=== PATIENT | female | born 1945 | race Caucasian/White ===

== ENCOUNTER 2018-06-11 09:59 | Observation (INO) ==
[2018-06-11 10:52] LABS: Basophils # (auto) 0.04 K/uL (0-0.2); Basophils % (auto) 0.6 %; Eosinophils # (auto) 0.38 K/uL (0-0.5); Eosinophils % (auto) 5.4 %; Hematocrit (blood only) 40.1 % (37-47); Hemoglobin 13.3 g/dL (12.0-16.0); Immature Granulocytes # (auto) 0.01 K/uL (0.00-0.02); Immature Granulocytes % (auto) 0.1 %; Lymphocytes # (auto) 1.63 K/uL (1.2-3.4); Mean Corpuscular Hgb Conc 33.2 g/dL (32-36); Mean Corpuscular Volume 92.2 fL (80-100); Mean Platelet Volume 11.1 fL (7.4-10.4); Monocytes # (auto) 0.56 K/uL (0.11-0.59); Monocytes % (auto) 7.9 %; Neutrophils # (auto) 4.47 K/uL (1.4-6.5); Platelet Count 185 K/uL (130-400); RDW Coefficient of Variation 12.9 % (11.5-14.5); RDW Standard Deviation 43.5 fL (36.4-46.3); Red Blood Count 4.35 M/uL (4.2-5.4); White Blood Count 7.09 K/uL (4.8-10.8)
--- NOTE | 2018-06-11 11:03 | XRay Report ---
XR chest 1V portable CLINICAL HISTORY: Atypical chest pain. Hypertension. COMPARISON STUDY: 05/23/2018 FINDINGS: The heart is enlarged. There is a left subclavian dual-chamber central venous pacemaker. Th ere is no failure. There is no focal pulmonary consolidation. There are no pleural effusions. There i s a right midlung zone granuloma.[ IMPRESSION: M. No acute findings. Electronically signed by: Kishan Eastman M.D. 06/11/2018 11:02 AM
[2018-06-11 11:07] LABS: Albumin Level 3.7 gm/dl (3.4-5.0); BUN Creatinine Ratio 22.8 (10-20); Calcium 9.1 mg/dl (8.5-10.1); Creatinine Clr Calc Pharmacy 65.5 ml/min; Est GFR (African American) 86.8; Est GFR (Non-African American) 74.9; Potassium 3.8 mmol/L (3.5-5.1)
[2018-06-11 11:10] LABS: Albumin Globulin Ratio 1.1 (0.9-2); Bilirubin,Total 0.5 mg/dl (0.1-1); Globulin 3.4 gm/dl (2.5-4.0); Total Protein 7.1 gm/dl (6.4-8.2)
[2018-06-11] MEDS ORDERED: NITROGLYCERIN 2% OINTMENT 30GM TUBE EXT ONE (12:00)
--- NOTE | 2018-06-11 12:34 | History & Physical Report ---
Date of Service June 11, 2018 Assessment & Plan (1) Chest pain, exertional: 73 y/o F Hx HTN, 2' heart block and symptomatic bradycardia leading to pacer placement 05/23/18. For the past week she has had episodes of central CP accompanied by SOB and lightheadedness. She denies nausea, vomiting or diaphoresis. The episode appear to be increasing in frequency. She reports similar episodes prior to placement of her pacemaker which were attributed to symptomatic bradycardia. Initial labs are unremarkable. An EKG, being paced, is nondiagnostic. It is noted that her BP was poorly controlled on arrival to the ER with a systolic pressure in the 170s. 1) CP - may be consistent with unstable angina. A stress test is pending for AM. She will be monitored overnught and serial enzymes are requested. 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 She is placed on ASA, a statin and NTG in addition to her B sudarshan. 2) HTN - uncontrolled - placed on Carvedilol and Lisinopril per home dose. NTG paste and PRN Hydralazine added, 3) Anxiety - continue Sertraline 4) Pacer - functioning as expected Full code - Lovenox prophylaxis Total time for this admit including review of labs, meds, imaging, records - discussion with pt and ER attending - 35 min History of Present Illness Chief Complaint: CHest pain Primary Care Provider: Feliciano Mckeon 73 y/o F Hx HTN, 2' heart block and symptomatic bradycardia leading to pacer placement 05/23/18. For the past week she has had episodes of central CP accompanied by SOB and lightheadedness. She denies nausea, vomiting or diaphoresis. The episode appear to be increasing in frequency. She reports similar episodes prior to placement of her pacemaker which were attributed to symptomatic bradycardia. Initial labs are unremarkable. An EKG, being paced, is nondiagnostic. It is noted that her BP was poorly controlled on arrival to the ER with a systolic pressure in the 170s. PMH: 1) HTN 2) Anxiety 3) 2nd degree heart block, symptomatic bradycardia 4) AV Pacemaker Surgical: 1) Pacemaker 05/23/18 2) L TKA 2016 Social: Does not drink or smoke Family: Both parents owing to MIs in their 50s Allergies Allergy/AdvReac Type Severity Reaction Status Date / Time clindamycin AdvReac Unknown nausea and Verified 06/11/18 10:24 vomiting Home Medications Home Medications Medication Instructions Recorded Confirmed Type carvedilol [Coreg] 25 mg PO DAILY 06/11/18 06/11/18 History lisinopril 10 mg PO BID 06/11/18 06/11/18 History sertraline [Zoloft] 25 - 50 mg PO DAILY 06/11/18 06/11/18 History Past Med/Surg History Medical History Hypertension (Chronic) Complete heart block Bradycardia Irregular heart rate No history of asthma Complete heart block Paroxysmal atrial tachycardia Surgical History Status post hernia repair Status post right knee replacement Social History marital status: Current Living Situation: Spouse Feels Safe at Home: Yes Smoking Status: Never smoker Hx Alcohol Use: No Hx Substance Use: Yes substance use type: does not use Beliefs That Will Affect Care: Yarsanism Preferred Language: Nigerian Review of Systems General: Denies fevers, night sweats, weight loss, weight gain ENT: Denies throat pain, nasal congestion Eyes: Denies acute visual impairment, eye pain Cardiovascular: CP as above Respiratory: Denies SOB, productive cough, wheezing - SOB occurs with CP GI: Denies nausea, vomiting, diarrhea, constipation, GI bleeding : Denies dysuria, hesitancy, frequency, hematuria Neuro: Denies headache, syncope, unilateral weakness, acute loss of balance, memory loss Endocrine: Denies polydypsia, polyuria Heme: Denies unexplained bruising Skin: Denies acute rash or ulcers Physical Exam 2 Vital Signs (Past 24 Hours): Last Vital Signs Temp 36.8 C 06/11/18 10:04 Pulse 70 06/11/18 12:18 Resp 18 06/11/18 12:18 BP 173/83 H 06/11/18 12:18 Pulse Ox 95 06/11/18 12:18 Physical Exam: General: AAO x 3, no distress ENT: No erythema or exudates, no thrush Eyes: JUSTA, EOMI Head and neck: Normocephalic, atraumatic, No JVD, neck is supple. Chest/heart: Nontender, S1,2, RRR, no murmurs, no gallops Lungs: CTAB, no wheezing or crackles Abdomen: Nontender, nondistended, BS+ Neuro: AAO x 3, speech is clear, no unilateral weakness or loss of sensation, coordination intact Musculoskeletal: No joint inflammation, muscle tenderness, FROM Skin: No acute rashes or ulcers Extremities: No clubbing, cyanosis, edema Results & Data Diagnostic Findings CXR: no acute findings EKG: AV pacing
[2018-06-11] MEDS ORDERED: ONDANSETRON INJ 2 MG/ML 2 ML VIAL IV PRN (14:45)
[2018-06-11] MEDS ORDERED: MoRPHine SULFATE 2 MG/ML CARP IV PRN (14:45)
[2018-06-11] MEDS ORDERED: ALUMINUM/MAGNESIUM SUSP 30 ML UDC PO PRN (14:45)
[2018-06-11] MEDS ORDERED: NITROGLYCERIN SL 0.4 MG/TAB TAB SL PRN (14:45)
[2018-06-11] MEDS ORDERED: ACETAMINOPHEN 325 MG TAB PO PRN (14:45)
[2018-06-11] MEDS ORDERED: MAGNESIUM HYDROXIDE SUSP 30 ML UDC PO PRN (14:45)
[2018-06-11] MEDS ORDERED: POLYETHYLENE (MIRALAX) 17 GM PACK PO PRN (14:45)
[2018-06-11] MEDS ORDERED: HydrALAZINE HCL 20 MG/ML VIAL IV PRN (14:45)
[2018-06-11] MEDS ORDERED: ENOXAPARIN INJ 40 MG/0.4 ML SYR SQ SCH (15:00)
--- NOTE | 2018-06-11 15:54 | Cardiology Consultation ---
Date of Consultation June 11, 2018 Assessment & Plan (1) Chest pain, exertional: Lizeth Ritchie is a 73-year-old female with a past medical history of heart block status post pacer placement and hypertension who presents for evaluation of 3 days of shortness of breath, chest pressure, and uncontrolled hypertension. She has exertional symptoms including chest pressure and shortness of breath which improved but did not completely resolve at rest. Troponin x2 are negative , EKG is nondiagnostic due to pacer but shows a paced rhythm at 61 bpm with prolonged AV conduction. Her pressures were in the 170s systolically on admit, peaked at 200s systolically and 60s-90s diastolically following admit, have decreased to 152/82 with Nitropaste. Differential diagnosis of her chest pain & shortness of breath include uncontrolled hypertension, paced rhythm with insufficient rate to meet increased demand with exertion, angina, and ACS. Low suspicion for ACS. Hypertensive control as follows: Lisinopril 10 mg twice daily, carvedilol 25 mg daily, torsemide 20 mg p.o. daily. Do not need to hold for BB for bradycardia given paced rhythm. Single dose of carvedilol 12.5 mg ordered. Hydralazine 2.5 mg IV every 8 as needed for systolic greater than 165 Discontinue Nitropaste Interrogate pacer Nuclear stress test - Do not recommend cardiac cath at this time Troponin x2 negative, final troponin pending Will continue to follow (2) Poorly-controlled hypertension: Supervising Physician Co-Signing Physician Notes History of present illness: 73-year-old woman who underwent pacemaker placement for intermittent complete heart block approximately 3 weeks ago, admitted today (06/11/2018) with recurrent exertional chest pressure and dyspnea beginning after she increased her activity post pacemaker. She also has a history of dyslipidemia, hypertension and paroxysmal atrial tachycardia, but no known coronary disease. Initial cardiac enzymes are negative x2, ECG shows a paced rhythm. Patient was reasonably comfortable at the time of our evaluation, noting no chest pain, dyspnea, subjective palpitations, or lightheadedness. She did complain of a mild headache, but had no other somatic complaints. Past history/review of systems as per Dr. Blackmon. No distress. Vitals: Afebrile. BP initially as high as 202/77 mm Hg, dropping to 152/82 mm Hg. Pulse 60 and regular (paced). Normal respiratory rate. Skin: No unusual lesions or ecchymosis. HEENT: Unremarkable. Neck: Jugular venous pulse at the clavicle at 90, no carotid bruits. Lungs: Clear and equal breath sounds bilaterally. No wheezing or crackles. Cardiac: Regular rhythm with normal S1 and S2. No murmur or gallop. Abdomen: Benign. Extremities: Nontender with 1+ edema. Intact peripheral pulses. Good capillary refill. Neurologic: Normal affect, nonfocal. Data: ECG showed paced rhythm. Chest x-ray unremarkable. Normal CBC. Troponin negative x2. Creatinine 0.78. Echocardiogram 2017 showed normal LV size and systolic function with no wall motion abnormalities, mild mitral regurgitation noted. Impression: 1. Exertional chest discomfort - evaluation underway. She may have angina secondary to supply/demand mismatch from uncontrolled hypertension. The exertional and episodic nature of her symptoms weighs against pulmonary embolism , but she did have a recent operative procedure (pacemaker placement). Agree with adjusting vaso-active regimen to control blood pressure, if no evidence of acute coronary syndrome will then proceed with stress testing to evaluate chronotropic response to activity (since inadequate heart rate response could be a source of dyspnea) and to exclude myocardial ischemia. 2. Status post pacemaker - [employer] Yesenia XT DR SIOBHAN Reddy dual-chamber pacemaker placed 05/22/2018. Will review overnight monitor results tomorrow and assess chronotropic response during stress testing. Doubt pacemaker malfunction at this point, but will perform an interrogation if any suggestion of inappropriate pacemaker function. 3. Hypertension - marked systolic hypertension was noted during her admission for pacemaker placement several weeks ago as well. She was to be started on torsemide 20 mg as an outpatient, will initiate this and titrate her carvedilol and lisinopril. Will discontinue nitropaste given her headache and it is relatively small contribution to BP control. Thank you for the opportunity to participate in the care of this patient. History of Present Illness Reason for Consultation: Evaluation of chest pain, shortness of breath in a patient with recent pacer placement Attending Physician: Isak Kumar MD History of Present Illness Lizeth Mitchell is a 73-year-old female with a past medical history of hypertension, heart block status post atrial pacer placement 05/23/2018, and dizziness who presents with 3 days of increased shortness of breath, headache, and increased blood pressure. She had a pacer placed in the beginning of May after heart block was noted by anesthesia during evaluation for a bunion removal surgery. Until then she notes she is also been having dizzy spells and intermittent shortness of breath for 3 years, with no arrhythmia picked up on loop recorder. Following pacer placement her shortness of breath and dizzy spells resolved and she was in good health until 3 days ago For the last 3 days she is noticed chest pressure in her central chest which occasionally radiates to her left arm. 4-5 out of 10 intensity at worst, 2-3 out of 10 without arm pain presently. She has associated shortness of breath which increases with exertion and becomes limiting to her until she rests, gradually improves with rest but has not resolved in the last few days. She notes she has been exerting herself more in the last 3 days walking around, cooking, preparing for the holidays. She lives with her who has not noticed any confusion or mental changes. She has also had mild headache and pain behind her left eye which occurs when her blood pressure is high and resolves when her blood pressure normalizes. Her blood pressures in the last 3 days have periodically been in the 180s systolically and 90s diastolically. Her hypertension has been managed with carvedilol 25 mg twice daily and lisinopril 10 mg (one half 20 mg tablet) twice daily. She was prescribed torsemide 20 mg 4 weeks ago to replace her Lasix for better control, she reports she thought she was supposed to start that when running out of carvedilol and has not taken any torsemide until a single dose today. She denies syncope, presyncope, but endorses mild dizziness worse with exertion. No vertigo. Denies swelling in her hands, endorses several weeks of bilateral lower leg edema. No history of diabetes. No history of tobacco or alcohol use. Denies recreational drug use. Endorses a family history of UT in her mother and father; history of diabetes mellitus in her sister, brother, and uncle; history of stroke in her paternal grandmother. Allergies Allergy/AdvReac Type Severity Reaction Status Date / Time clindamycin AdvReac Unknown nausea and Verified 06/11/18 10:24 vomiting Home Medications Home Medications Medication Instructions Recorded Confirmed Type carvedilol [Coreg] 25 mg PO DAILY 06/11/18 06/11/18 History lisinopril 10 mg PO BID 06/11/18 06/11/18 History sertraline [Zoloft] 25 - 50 mg PO DAILY 06/11/18 06/11/18 History Patient History Medical History Hypertension (Chronic) Complete heart block Bradycardia Irregular heart rate No history of asthma Complete heart block Paroxysmal atrial tachycardia Surgical History Status post hernia repair Status post right knee replacement Social History marital status: Current Living Situation: Spouse Other Information That Helps Us Care for You: No Feels Safe at Home: Yes Safety Concerns: Feels Safe At This Time Smoking Status: Never smoker Hx Alcohol Use: No Hx Substance Use: No Beliefs That Will Affect Care: None Communication Ability: Effective 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 NAD. Cooperative. HEENT: Atraumatic, normocephalic. Extraocular movements intact. Pupils equal and responsive to light and accommodation. Pulm: CTAB A&P. -wheezes, -rales, -rhonchi. Symmetrical chest rise. No increase work of breathing. No respiratory distress. Cardiac: RRR, -mrg. Radial pulses intact and symmetrical.Posterior tibial pulses intact and symmetrical. No JVD. No increased JVD with hepatojugular reflux. Abdominal: Nontender, nondistended, soft. BS present. Extremities: 2-3+ pitting edema through the calf bilaterally. No unilateral leg swelling, no lower extremity warmth or tenderness to palpation. Calf circumference equal bilaterally. Homans sign negative bilaterally Results & Data Laboratory Results Abnormal lab results 06/11/18 06/11/18 Range/Units 10:25 10:25 MPV 11.1 H (7.4-10.4) fL Chloride 108 H (98-107) mmol/L BUN/Creatinine Ratio 22.8 H (10-20) 06/11/18 06/11/18 06/11/18 Range/Units 15:16 11:07 10:25 WBC (4.8-10.8) K/uL RBC (4.2-5.4) M/uL Hgb (12.0-16.0) g/dL Hct (37-47) % MCV (80-100) fL MCH (25-34) pg MCHC (32-36) g/dL RDW Std Deviation (36.4-46.3) fL RDW Coeff of Mohinder (11.5-14.5) % Plt Count (130-400) K/uL MPV (7.4-10.4) fL Immature Gran % (Auto) % Neut % (Auto) % Lymph % (Auto) % [place] % (Auto) % Eos % (Auto) % Baso % (Auto) % Immature Gran # (Auto) (0.00-0.02) K/uL Neut # (Auto) (1.4-6.5) K/uL Lymph # (Auto) (1.2-3.4) K/uL [place] # (Auto) (0.11-0.59) K/uL Eos # (Auto) (0-0.5) K/uL Baso # (Auto) (0-0.2) K/uL Sodium 142 (136-145) mmol/L Potassium 3.8 (3.5-5.1) mmol/L Chloride 108 H (98-107) mmol/L Carbon Dioxide 29 (21-32) mmol/L Anion Gap 5.0 (3-11) BUN 18 (7-18) mg/dl Creatinine 0.78 (0.6-1.2) mg/dl Est Cr Clr Drug Dosing 65.5 ml/min Est GFR ( Amer) 86.8 Est GFR (Non-Af Amer) 74.9 BUN/Creatinine Ratio 22.8 H (10-20) Glucose 88 (70-99) mg/dl Calcium 9.1 (8.5-10.1) mg/dl Total Bilirubin 0.5 (0.1-1) mg/dl AST 17 (15-37) U/L ALT 22 (12-78) U/L Alkaline Phosphatase 68 (45-117) U/L POC Troponin I < 0.03 (0-0.045) ng/ml Troponin I Pending Total Protein 7.1 (6.4-8.2) gm/dl Albumin 3.7 (3.4-5.0) gm/dl Globulin 3.4 (2.5-4.0) gm/dl Albumin/Globulin Ratio 1.1 (0.9-2) Lipase 235 (73-393) U/L // Range/Units 10:25 WBC 7.09 (4.8-10.8) K/uL RBC 4.35 (4.2-5.4) M/uL Hgb 13.3 (12.0-16.0) g/dL Hct 40.1 (37-47) % MCV 92.2 (80-100) fL MCH 30.6 (25-34) pg MCHC 33.2 (32-36) g/dL RDW Std Deviation 43.5 (36.4-46.3) fL RDW Coeff of Mohinder 12.9 (11.5-14.5) % Plt Count 185 (130-400) K/uL MPV 11.1 H (7.4-10.4) fL Immature Gran % (Auto) 0.1 % Neut % (Auto) 63.0 % Lymph % (Auto) 23.0 % [place] % (Auto) 7.9 % Eos % (Auto) 5.4 % Baso % (Auto) 0.6 % Immature Gran # (Auto) 0.01 (0.00-0.02) K/uL Neut # (Auto) 4.47 (1.4-6.5) K/uL Lymph # (Auto) 1.63 (1.2-3.4) K/uL [place] # (Auto) 0.56 (0.11-0.59) K/uL Eos # (Auto) 0.38 (0-0.5) K/uL Baso # (Auto) 0.04 (0-0.2) K/uL Sodium (136-145) mmol/L Potassium (3.5-5.1) mmol/L Chloride (98-107) mmol/L Carbon Dioxide (21-32) mmol/L Anion Gap (3-11) BUN (7-18) mg/dl Creatinine (0.6-1.2) mg/dl Est Cr Clr Drug Dosing ml/min Est GFR ( Amer) Est GFR (Non-Af Amer) BUN/Creatinine Ratio (10-20) Glucose (70-99) mg/dl Calcium (8.5-10.1) mg/dl Total Bilirubin (0.1-1) mg/dl AST (15-37) U/L ALT (12-78) U/L Alkaline Phosphatase (45-117) U/L POC Troponin I (0-0.045) ng/ml Troponin I Total Protein (6.4-8.2) gm/dl Albumin (3.4-5.0) gm/dl Globulin (2.5-4.0) gm/dl Albumin/Globulin Ratio (0.9-2) Lipase (73-393) U/L Medications Administered Current Inpatient Medications Acetaminophen (Tylenol) 650 mg PO Q4H PRN PRN Reason: Pain or Fever Stop: 07/11/18 14:44 Al Hydrox/Mg Hydrox/Simethicone (Maalox) 15 ml PO Q4H PRN PRN Reason: Dyspepsia Stop: 07/11/18 14:44 Aspirin (Ecotrin) 81 mg PO QAM [facility] Stop: 07/12/18 08:59 Carvedilol (Coreg) 25 mg PO DAILY [facility] Stop: 07/12/18 08:59 Enoxaparin Sodium (Lovenox) 40 mg SQ Q24H [facility] Stop: 07/11/18 14:59 Last Admin: 06/11/18 15:40 Dose: 40 mg Hydralazine HCl (Hydralazine Hcl) 2.5 mg IV Q8H PRN PRN Reason: SBP > 165 Stop: 07/11/18 14:44 Potassium Chloride/Dextrose/Sod Cl (D5nss + 20meq Kcl) 20 meq in 1,000 mls @ 80 mls/hr IV .[id number] [facility] Stop: 06/12/18 08:29 Lisinopril (Zestril) 10 mg PO BID [facility] Stop: 07/11/18 20:59 Magnesium Hydroxide (Milk Of Magnesia) 30 ml PO Q12H PRN PRN Reason: Constipation Stop: 07/11/18 14:44 Morphine Sulfate (Morphine Sulfate) 2 mg IV Q30M PRN PRN Reason: Chest Pain Stop: 06/25/18 14:44 Nitroglycerin (Nitro-Bid 2%) 1 inch EXT Q6 BAILEE Stop: 07/11/18 17:59 Nitroglycerin (Nitrostat) 0.4 mg SL UD PRN PRN Reason: Chest Pain Stop: 07/11/18 14:44 Ondansetron HCl (Zofran) 4 mg IV Q6H PRN PRN Reason: Nausea Stop: 07/11/18 14:44 Polyethylene Glycol (Miralax Powder Packet) 17 gm PO DAILY PRN PRN Reason: Constipation Stop: 07/11/18 14:44 Sertraline HCl (Zoloft) 25 mg PO DAILY BAILEE Stop: 07/12/18 08:59
[2018-06-11] MEDS ORDERED: CARVEDILOL 12.5 MG TAB PO ONE (16:08)
--- NOTE | 2018-06-11 17:15 | Emergency Department Note ---
Entered by Abram Henning acting as a scribe for Tulio Sanabria MD History of Present Illness General Chief complaint: Hypertension Stated complaint: SHORT OF BREATH, HIGH BLOOD PRESSURE Source: patient History of Present Illness Onset (ago): week(s) 1 Location: chest (hypertension) Pain Consistency: + constant Maximum Pain Intensity: 3 Relieved By: + none Associated symptoms: + denies other symptoms (palpitations), + chest pain ( tightness), + shortness of breath and + other (intermittent leg swelling); no cough and no fever/chills The patient is a 73 year old F who presents to the Emergency Room with complaints of constant hypertension starting 1 week ago. She states that she currently has shortness of breath, tight chest pain, and intermittent leg swelling. She denies having a fever, cough, and palpitations since her pacemaker surgery. She notes that she had a pacemaker placement surgery earlier this month but has not been taking her blood pressure medication as prescribed to her by her educational manager because she is already taking two other medications. She was prescribed torsemide but just picked it up recently and did not take it. She has been taking her other blood pressure medications. She does state that she has had chest tightness with shortness of breath for some time. It was worse when she had bradycardia and was admitted earlier in the month. It seems to have gotten better but she has not been doing very much until about a week ago when she started cleaning the house and baking cookies. This seemed to worsen her chest tightness and shortness of breath. She is currently not having any chest tightness. She denies having a history of asthma or a recent cardiac cauterization. Home Medications Home Medications Medication Instructions Recorded Confirmed Type carvedilol [Coreg] 25 mg PO DAILY 06/11/18 06/11/18 History lisinopril 10 mg PO BID 06/11/18 06/11/18 History sertraline [Zoloft] 25 - 50 mg PO DAILY 06/11/18 06/11/18 History Allergies Allergy/AdvReac Type Severity Reaction Status Date / Time clindamycin AdvReac Unknown nausea and Verified 06/11/18 10:24 vomiting Past Med/Surg History Medical History Hypertension (Chronic) Complete heart block Bradycardia Irregular heart rate No history of asthma Complete heart block Paroxysmal atrial tachycardia Surgical History Status post hernia repair Status post right knee replacement Social History marital status: Current Living Situation: Spouse Other Information That Helps Us Care for You: No Feels Safe at Home: Yes Safety Concerns: Feels Safe At This Time Smoking Status: Never smoker Hx Alcohol Use: No Hx Substance Use: No Beliefs That Will Affect Care: None Communication Ability: Effective Accreditation Specialist Required: No Review of Systems See HPI for pertinent positives & negatives. and A total of 10 systems reviewed and were otherwise negative Physical Exam Vital Signs Vital Signs - 24 hr 06/11/18 10:04 06/11/18 10:32 06/11/18 11:02 Temperature 36.8 C Temperature Source Oral Sepsis Recent Fever Within 48 Hours No Sepsis New/Unexplained Change in Mental Status No Sepsis Action Taken by Nursing No Action Required Pulse Rate 64 60 Pulse Rate [Apical] Pulse Rhythm Regular Pulse Rhythm [Apical] Pulse Strength [Apical] Respiratory Rate 20 16 Respiratory Effort / Characteristics Respiratory Depth Normal Blood Pressure 195/95 H Blood Pressure [Left Arm] 199/66 H Blood Pressure [Right Arm] Blood Pressure Mean 128 Blood Pressure Mean [Left Arm] 110 Blood Pressure Mean [Right Arm] Blood Pressure Position [Left Arm] Lying Blood Pressure Position [Right Arm] Pulse Oximetry 98 96 Oxygen Delivery Method Room Air Room Air 06/11/18 11:26 06/11/18 11:54 06/11/18 12:18 Temperature Temperature Source Sepsis Recent Fever Within 48 Hours Sepsis New/Unexplained Change in Mental Status Sepsis Action Taken by Nursing Pulse Rate Pulse Rate [Apical] 66 62 70 Pulse Rhythm Pulse Rhythm [Apical] Regular Pulse Strength [Apical] Normal Respiratory Rate 16 18 18 Respiratory Effort / Characteristics Non-Labored Respiratory Depth Normal Blood Pressure Blood Pressure [Left Arm] 202/77 H Blood Pressure [Right Arm] 210/81 H 210/85 H 173/83 H Blood Pressure Mean Blood Pressure Mean [Left Arm] 118 Blood Pressure Mean [Right Arm] 124 126 113 Blood Pressure Position [Left Arm] Blood Pressure Position [Right Arm] Lying Pulse Oximetry 98 98 95 Oxygen Delivery Method Room Air Room Air Room Air 06/11/18 13:04 06/11/18 13:18 06/11/18 13:44 Temperature Temperature Source Sepsis Recent Fever Within 48 Hours Sepsis New/Unexplained Change in Mental Status Sepsis Action Taken by Nursing Pulse Rate Pulse Rate [Apical] 77 70 Pulse Rhythm Pulse Rhythm [Apical] Pulse Strength [Apical] Respiratory Rate 18 18 Respiratory Effort / Characteristics Short of Breath Respiratory Depth Normal Normal Normal Blood Pressure Blood Pressure [Left Arm] Blood Pressure [Right Arm] 170/86 H 162/85 H Blood Pressure Mean Blood Pressure Mean [Left Arm] Blood Pressure Mean [Right Arm] 114 110 Blood Pressure Position [Left Arm] Blood Pressure Position [Right Arm] Pulse Oximetry 99 96 Oxygen Delivery Method Room Air Room Air 06/11/18 14:32 Temperature 36.6 C Temperature Source Oral Sepsis Recent Fever Within 48 Hours Sepsis New/Unexplained Change in Mental Status Sepsis Action Taken by Nursing Pulse Rate Pulse Rate [Apical] 68 Pulse Rhythm Pulse Rhythm [Apical] Pulse Strength [Apical] Respiratory Rate 18 Respiratory Effort / Characteristics Respiratory Depth Blood Pressure Blood Pressure [Left Arm] 152/82 H Blood Pressure [Right Arm] Blood Pressure Mean Blood Pressure Mean [Left Arm] 105 Blood Pressure Mean [Right Arm] Blood Pressure Position [Left Arm] Lying Blood Pressure Position [Right Arm] Pulse Oximetry 98 Oxygen Delivery Method Room Air Constitutional: Vital signs reviewed. Eyes: Pupils are equal round reactive to light. Conjunctiva are noninjected. ENT: Pharynx is clear without erythema or exudate. Mucous membranes are moist. Neck supple without meningeal signs. Respiratory: Clear to auscultation bilaterally. Breath sounds are equal bilaterally. Cardiovascular: Regular rate and rhythm. No rubs or gallops. GI: Soft, nondistended and nontender. Bowel sounds are present. Musculoskeletal: No peripheral edema. No lower extremity tenderness. Pacemaker in left upper chest wall, no tenderness, no erythema, no swelling. Integumentary: No cyanosis. Neurological: The patient is awake and alert. No focal deficits. Psychiatric: Normal affect. Course 1036: Past medical records reviewed. The patient was evaluated in room A10, and a complete history and physical examination were performed. 1157: I reviewed the patient's case with Dr. Arzola and he states that the patient should be admitted. He states he will do a stress tomorrow after blood pressure is stabilized. 1210: I talked to the patient about Dr. Hall recommendation and she agreed to hospitalization. The patient states that she does not currently have any symptoms and her blood pressure has improved. 1255: I reviewed the patient's case with Dr. Isak Kumar, [facility] Hospitalist. He will evaluate the patient for further management. Consultations Consultation #1: I reviewed the patient's case with Dr. Arzola and he states that the patient should be admitted. He states he will do a stress tomorrow after blood pressure is stabilized. Time: 11:57 Consultation #2: I reviewed the patient's case with Dr. Isak Kumar, [facility] Hospitalist. He will evaluate the patient for further management. Time: 12:55 Administered Medications Acetaminophen (Tylenol) 650 mg PO Q4H PRN PRN Reason: Pain or Fever Stop: 07/11/18 14:44 Last Admin: 06/11/18 17:05 Dose: 650 mg Enoxaparin Sodium (Lovenox) 40 mg SQ Q24H BAILEE Stop: 07/11/18 14:59 Last Admin: 06/11/18 15:40 Dose: 40 mg Discontinued Medications Carvedilol (Coreg) 12.5 mg PO NOW ONE Stop: 06/11/18 16:09 Last Admin: 06/11/18 17:06 Dose: 12.5 mg Nitroglycerin (Nitro-Bid 2%) 1 inch EXT NOW ONE Stop: 06/11/18 12:01 Last Admin: 06/11/18 12:09 Dose: 1 inch Medical Decision Making Differential Diagnosis Differential Diagnosis includes: medication noncompliance, anxiety, acute coronary syndrome, heart failure, pleural effusion Medical Records Attestation: I reviewed the patient's medical records. Home Medications Current Medication List: was personally reviewed by me Laboratory Data Attestation: I reviewed the patient's lab results. Result diagrams: 06/11/18 10:25 06/11/18 10:25 Lab Results 06/11/18 06/11/18 06/11/18 Range/Units 10:25 10:25 11:07 WBC 7.09 (4.8-10.8) K/uL RBC 4.35 (4.2-5.4) M/uL Hgb 13.3 (12.0-16.0) g/dL Hct 40.1 (37-47) % MCV 92.2 (80-100) fL MCH 30.6 (25-34) pg MCHC 33.2 (32-36) g/dL RDW Std Deviation 43.5 (36.4-46.3) fL RDW Coeff of Mohinder 12.9 (11.5-14.5) % Plt Count 185 (130-400) K/uL MPV 11.1 H (7.4-10.4) fL Immature Gran % (Auto) 0.1 % Neut % (Auto) 63.0 % Lymph % (Auto) 23.0 % Evans % (Auto) 7.9 % Eos % (Auto) 5.4 % Baso % (Auto) 0.6 % Immature Gran # (Auto) 0.01 (0.00-0.02) K/uL Neut # (Auto) 4.47 (1.4-6.5) K/uL Lymph # (Auto) 1.63 (1.2-3.4) K/uL Evans # (Auto) 0.56 (0.11-0.59) K/uL Eos # (Auto) 0.38 (0-0.5) K/uL Baso # (Auto) 0.04 (0-0.2) K/uL Sodium 142 (136-145) mmol/L Potassium 3.8 (3.5-5.1) mmol/L Chloride 108 H (98-107) mmol/L Carbon Dioxide 29 (21-32) mmol/L Anion Gap 5.0 (3-11) BUN 18 (7-18) mg/dl Creatinine 0.78 (0.6-1.2) mg/dl Est Cr Clr Drug Dosing 65.5 ml/min Est GFR ( Amer) 86.8 Est GFR (Non-Af Amer) 74.9 BUN/Creatinine Ratio 22.8 H (10-20) Glucose 88 (70-99) mg/dl Calcium 9.1 (8.5-10.1) mg/dl Total Bilirubin 0.5 (0.1-1) mg/dl AST 17 (15-37) U/L ALT 22 (12-78) U/L Alkaline Phosphatase 68 (45-117) U/L POC Troponin I < 0.03 (0-0.045) ng/ml Troponin I (0-0.045) ng/ml Total Protein 7.1 (6.4-8.2) gm/dl Albumin 3.7 (3.4-5.0) gm/dl Globulin 3.4 (2.5-4.0) gm/dl Albumin/Globulin Ratio 1.1 (0.9-2) Lipase 235 (73-393) U/L 06/11/18 Range/Units 15:16 WBC (4.8-10.8) K/uL RBC (4.2-5.4) M/uL Hgb (12.0-16.0) g/dL Hct (37-47) % MCV (80-100) fL MCH (25-34) pg MCHC (32-36) g/dL RDW Std Deviation (36.4-46.3) fL RDW Coeff of Mohinder (11.5-14.5) % Plt Count (130-400) K/uL MPV (7.4-10.4) fL Immature Gran % (Auto) % Neut % (Auto) % Lymph % (Auto) % Evans % (Auto) % Eos % (Auto) % Baso % (Auto) % Immature Gran # (Auto) (0.00-0.02) K/uL Neut # (Auto) (1.4-6.5) K/uL Lymph # (Auto) (1.2-3.4) K/uL Evans # (Auto) (0.11-0.59) K/uL Eos # (Auto) (0-0.5) K/uL Baso # (Auto) (0-0.2) K/uL Sodium (136-145) mmol/L Potassium (3.5-5.1) mmol/L Chloride (98-107) mmol/L Carbon Dioxide (21-32) mmol/L Anion Gap (3-11) BUN (7-18) mg/dl Creatinine (0.6-1.2) mg/dl Est Cr Clr Drug Dosing ml/min Est GFR ( Amer) Est GFR (Non-Af Amer) BUN/Creatinine Ratio (10-20) Glucose (70-99) mg/dl Calcium (8.5-10.1) mg/dl Total Bilirubin (0.1-1) mg/dl AST (15-37) U/L ALT (12-78) U/L Alkaline Phosphatase (45-117) U/L POC Troponin I (0-0.045) ng/ml Troponin I < 0.015 (0-0.045) ng/ml Total Protein (6.4-8.2) gm/dl Albumin (3.4-5.0) gm/dl Globulin (2.5-4.0) gm/dl Albumin/Globulin Ratio (0.9-2) Lipase (73-393) U/L Imaging Data Radiologist's Impression: Radiology results as stated below per my review and the radiologist's interpretation: XR chest 1V portable CLINICAL HISTORY: Atypical chest pain. Hypertension. COMPARISON STUDY: 05/23/2018 FINDINGS: The heart is enlarged. There is a left subclavian dual-chamber central venous pacemaker. There is no failure. There is no focal pulmonary consolidation. There are no pleural effusions. There is a right midlung zone granuloma.[ IMPRESSION: M. No acute findings. Electronically signed by: Kishan Eastman M.D. 06/11/2018 11:02 AM ECG Data Attestation: I personally reviewed and interpreted this ECG as follows: Indication: SOB/dyspnea Rate (beats per minute): 61 Findings: + other (QRS 168 milliseconds) and + paced rhythm; no PVC Blood Pressure Blood Pressure Findings: Elevated blood pressure Blood Pressure Disposition: further management by hospitalist PEDRO Narrative I did perform a limited focused review of portions of the patient's old chart on the electronic medical record. The patient was admitted earlier this month for second degree heart block, chest pain with shortness of breath, and a headache. A permanent pacemaker was placed on the 4th and the patient was discharged on Lisinopril and Coreg. I did evaluate the patient as noted above. IV access was established. The patient was placed on a continuous nuclear monitoring technician. The patient is hypertensive. She was given her prescribed dose of torsemide here. She was also given nitroglycerin paste. I did order and personally review the patient' s 12-lead EKG and chest x-ray as described above. Her twelve-lead EKG does not show any acute abnormality. She has a paced rhythm. Chest x-ray is unremarkable. I did order and review the patient's blood work as noted in the electronic medical record. Troponin is negative. Labs are otherwise unremarkable. I did reevaluate the patient. Her blood pressure is improved. I did discuss the test results with her. I did discuss the case with Dr. Arzola of cardiology. He recommended hospitalization for cardiac stress test tomorrow given her accelerated angina. I did discuss this with the patient and her son. I did discuss case with the hospitalist and caser shoe parts. Impression & Plan Chest pain, exertional, Poorly-controlled hypertension Discharge Plan Visit Data *Final* Discharge Date/Time: 06/11/18 14:07 Chief Complaint: Hypertension Stated Complaint: SHORT OF BREATH, HIGH BLOOD PRESSURE ED Provider: Tulio Sanabria Discharge Problem: Chest pain, exertional, Poorly-controlled hypertension Patient Disposition: Admitted As Inpatient Discharge Instructions Interventions: ED Discharge Assessment Last Done: 06/11/18 14:07 The scribe's documentation has been prepared under my direction and personally reviewed by me in its entirety. I confirm that the note above accurately reflects all work, treatment, procedures, and medical decision making performed by me.
[2018-06-11] MEDS ORDERED: NITROGLYCERIN 2% OINTMENT 30GM TUBE EXT SCH (18:00)
[2018-06-11] MEDS ORDERED: D5NSS + 20MEQ KCL 20 MEQ/1,000 ML BAG IV SCH (20:00)
[2018-06-11] MEDS: LISINOPRIL 10 MG TAB PO SCH (21:11)
[2018-06-12] MEDS ORDERED: ASPIRIN 81 MG ECTAB PO SCH (09:00)
[2018-06-12] MEDS ORDERED: CARVEDILOL 25 MG TAB PO SCH (09:00)
[2018-06-12] MEDS ORDERED: SERTRALINE HCL 50 MG TABLET PO SCH (09:00)
[2018-06-12] MEDS ORDERED: TORSEMIDE 20 MG TAB PO SCH (09:00)
[2018-06-12] MEDS: LISINOPRIL 10 MG TAB PO SCH (09:14)
--- NOTE | 2018-06-12 12:26 | Discharge Summary ---
Date of Service June 12, 2018 Admission HPI Per Admitting Provider 73 y/o F Hx HTN, 2' heart block and symptomatic bradycardia leading to pacer placement 05/23/18. For the past week she has had episodes of central CP accompanied by SOB and lightheadedness. She denies nausea, vomiting or diaphoresis. The episode appear to be increasing in frequency. She reports similar episodes prior to placement of her pacemaker which were attributed to symptomatic bradycardia. Initial labs are unremarkable. An EKG, being paced, is nondiagnostic. It is noted that her BP was poorly controlled on arrival to the ER with a systolic pressure in the 170s. PMH: 1) HTN 2) Anxiety 3) 2nd degree heart block, symptomatic bradycardia 4) AV Pacemaker Surgical: 1) Pacemaker 05/23/18 2) L TKA 2016 Social: Does not drink or smoke Family: Both parents owing to MIs in their 50s Principal Diagnosis Chest pain related to elevated BP Discharge Exam Constitutional WD/WN, vitals as above Eyes normal visual hunter by confrontation and + anicteric sclerae Neck normal visual inspection and trachea midline Respiratory normal respiratory effort, lungs clear to auscultation Cardiovascular Rate/Rhythm: regular rate and regular rhythm Gastrointestinal (Abdomen) Inspection/Auscultation: abdomen not distended Percussion/Palpation: abdomen soft; abdomen nontender Musculoskeletal Head/Neck/Chest: normocephalic and head atraumatic Skin no rashes, warm and dry Neurologic awake; not confused Speech / Cognition: normal speech Psychiatric A+Ox3, euthymic affect Discharge Data Allergies Allergy/AdvReac Type Severity Reaction Status Date / Time clindamycin AdvReac Unknown nausea and Verified 06/11/18 10:24 vomiting Consultations 06/11/18 12:19 ED Decision to Admit Stat 06/11/18 14:45 Consult Cardiology Routine Hospital Course (1) Chest pain, exertional: 73 y/o F Hx HTN, 2' heart block and symptomatic bradycardia leading to pacer placement 05/23/18. For the past week she has had episodes of central CP accompanied by SOB and lightheadedness. She denies nausea, vomiting or diaphoresis. The episode appear to be increasing in frequency. She reports similar episodes prior to placement of her pacemaker which were attributed to symptomatic bradycardia. Initial labs are unremarkable. An EKG, being paced, is nondiagnostic. It is noted that her BP was poorly controlled on arrival to the ER with a systolic pressure in the 170s. 1) CP - concern for unstable angina on admission Trops neg x3 Stress ECHO was neg for signs of ischemia, however pt had an abnormal BP response in that it was markedly high after completing 3 minutes on the treadmill Cardiology feels that pt's sx are related to uncontrolled BP and recommended increase dosing of one of her BP meds Carvedilol increased to 50mg daily Advised to keep a journal of her BP and HR to take to appts for further management 2) HTN - uncontrolled - placed on Carvedilol and Lisinopril per home dose. NTG paste and PRN Hydralazine added, 3) Anxiety - continue Sertraline 4) Pacer - functioning as expected Full code - Lovenox prophylaxis Total Time Total Time Spent Total Time Spent (In Minutes): >30 Total Time Includes: Examination of the Patient, Discharge Planning, Medication Reconciliation and Communication With Other Providers Discharge Plan Discharge Items Patient Disposition: Home - Self-Care Reason For Visit: CHEST PAIN Discharge Diagnosis: Chest pain related to elevated blood pressure Condition: Good Discharge Goals: Decrease discomfort, Improve disease control and Improve function Activity: Resume your previous activity Non-emergency contact: Primary Care Provider Call non-emergency contact if: you have any medication questions and your symptoms worsen Diet: Heart Healthy Addtl Provider Instructions: You should use your blood pressure cuff and check you BP at some point during the day, at least an hour after you have taken you morning blood pressure medications. You should record your blood pressure and heart rate and take this information with you to your next few appointments with you PCP or painter touch up so we can determine if the change in your blood pressure medication is working well for you. Prescriptions: New carvedilol 25 mg Tablet 50 mg PO DAILY Qty: 60 RF: 0 Continue lisinopril 20 mg Tablet 10 mg PO BID RF: 0 sertraline [Zoloft] 50 mg Tablet 25 - 50 mg PO DAILY RF: 0 Discontinued carvedilol [Coreg] 25 mg Tablet 25 mg PO DAILY RF: 0 Stand-Alone Forms: [facility], [facility] Discharge Orders: Discharge Order (Routine); Ordered 06/12/18 Ordered By: Airam Baca Admission Data Admit Date/Time: 06/11/18 12:57 Attending Provider: Baca,Airam A Admit Provider: Isak Kumar Primary Care Provider: Feliciano Mckeon Other Providers: Isak Kumar ; Charlie Arzola Service: Telemetry Medical Supervising Physician Co-Signing Physician Notes Pt is feeling much improved. She has not had recurrence of her sx today. No chest pain, SOB, lightheadedness. She tolerated PO without issue. Pt denies fever, abd pain, n/v/c/d, LE pain or swelling. Pertinent positives and negatives reviewed in HPI--all others negative
--- NOTE | 2018-06-12 13:46 | Cardiology Progress Note ---
Date of Service June 12, 2018 Assessment & Plan (1) Chest pain, exertional: Case discussed with Dr. Baca. Suspect th cherie's exertional chest pain was due to uncontrolled hypertension, carvedilol will be titrated upward. No evidence of myocardial ischemia playing a role in her exertional symptoms. (2) Poorly-controlled hypertension: See above' (3) Pacemaker: Appropriate chronotropic response of pacemaker to physical activity during stress test today. No evidence of pacemaker malfunction on monitoring. Subjective Uneventful night. Patient underwent stress echocardiogram today and walked for 3 minutes on a Rene protocol achieving 85% maximum predicted heart rate with a hypertensive blood pressure response but no symptoms and no echocardiographic abnormalities. She was comfortable at the time of our evaluation, denying any chest pain, dyspnea, or other complaints. Physical Exam 2 Vital Signs (Past 24 Hours): Last Vital Signs Temp 37.0 C 06/12/18 12:49 Pulse 61 06/12/18 12:49 Resp 20 06/12/18 12:49 BP 141/81 H 06/12/18 12:49 Pulse Ox 95 06/12/18 12:49 Physical Exam: No distress. Vitals: Afebrile. BP 146/81, pulse 60 and regular, normal respiratory rate. Skin: No unusual lesions or ecchymosis. HEENT: Unremarkable. Neck: Jugular venous pulse at the clavicle at 90, no carotid bruits. Lungs: Clear and equal breath sounds bilaterally. No wheezing or crackles. Cardiac: Regular rhythm with normal S1 and S2. No murmur or gallop. Abdomen: Benign. Extremities: Nontender with 1+ edema. Intact peripheral pulses. Good capillary refill. Neurologic: Normal affect, nonfocal. Results & Data Laboratory Results Troponin negative x3.
== END 2018-06-12 13:10 | disposition home or self-care (01) ==
LOC: ED 09:59 → 2S 09:59 → SUATTDRO 12:57 → 2S 14:07

== ENCOUNTER 2021-09-29 08:02 | Observation (INO) ==
--- NOTE | 2021-09-22 14:50 | Anesthesiology Consultation ---
Date of Service September 22, 2021 Assessment & Plan (1) Encounter for pre-operative examination: Chart Review Chart Review: Acceptable Risk for Surgery (pending preop Covid testing results ) and Patient NOT seen in Pre Admission Testing Pt rescheduled from 05/26/21- 09/29/21 Per nursing assessment 09/22/2021, patient denies any recent travel. No known Covid infection in the past 90 days. Patient is not vaccinated for Covid. Only masks when around a lot of people. No known Covid positive exposures or Covid related symptoms. Preop Covid testing scheduled 09/27/21= will await results. Due to not masking at all times, not being vaccinated for Covid, and being an admission surgery (possibility of patient roommate)- will order Blank Covid test for DOS. Patient last seen by cardiology 09/17/2021 = seen for preoperative evaluation. Patient is active on a daily basis although she is having more pain in her right knee. 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 Patient does admit to a mild degree chronic but stable dyspnea if she walks up hill, but this has not changed. Patient has not experienced any angina pectoris or anginal equivalent symptoms, overt signs or symptoms of heart failure, nor has she had any symptoms suggestive of dysrhythmia."Based on her functional status with only mild chronic stable dyspnea on exertion, lack of anginal symptoms, and normal LV systolic function -- patient is an acceptable surgical risk to proceed with surgery as scheduled provided she take her usual dose of Carvedilol 25 mg the morning of surgery with sips of water. Patient is aware that she should hold her Lisinopril on the morning of surgery. There is no need for further ischemic workup at this time " Patient seen by PCP 05/21/2021 = seen for preoperative evaluation. Patient recently followed up with electrophysiologistpacemaker dependent and magnet application during surgery as advised. Also recommended placement of electrocautery grounding pad below the level of the umbilicus to help avoid any inhibition of pacemaker. "Patient had essentially a benign preoperative examination today. Cardiology has optimized patient for surgery from a cardiac standpoint and has made specific recommendations. Patient is medically optimized to undergo surgery on 05/26/2021 as scheduled." Patient last seen by electrophysiology 05/07/21= seen for routine evaluation. She also reports chest pain, but characterizes it as "sharp" and "jabbing". Normally functioning dual-chamber permanent pacemaker. Normal device longevity. One brief arrhythmia which appear to be atrial fibrillation lasting 48 seconds. Not an indication for anticoagulation. Complete heart blocknearly 100% ventricular pacing. Normal device longevity. Hypertensionborderline. "Preoperative: Patient is pacemaker dependent. Magnet application during her surgery is advised. Placement of the electrocautery grounding pad below the level of the umbilicus will also help avoid any inhibition of the device. She appears to be able to exercise to a reasonable workload. She does have some mild dyspnea at significant exertion, I do not believe she requires preoperative cardiovascular testing. Her exam is benign today. No other concerning symptoms. As with all patients, efforts should be made to avoid significant blood loss, anemia, hypotension, Hypertension, Hypoxia and tachycardia." History Surgery Operation Date: 09/29/21 14:05 Proposed Procedures p Right Total Knee Arthroplasty - Javire Cordon MD Height/Weight Height: 5 ft 6 in Weight: 69.4 kg Allergies Allergy/AdvReac Type Severity Reaction Status Date / Time clindamycin AdvReac Unknown nausea and Verified 09/22/21 11:14 vomiting Medications Home Medications Medication Instructions Recorded Confirmed Last Taken lisinopril 20 mg tablet 10 mg PO BID 06/11/18 09/22/21 12/18/18 carvedilol 25 mg tablet 25 mg PO BID 12/10/18 09/22/21 12/19/18 cholecalciferol (vitamin D3) 125 5,000 unit PO QAM 12/10/18 09/22/21 12/18/18 mcg (5,000 unit) tablet (Vitamin D3) cyanocobalamin (vitamin B-12) 5,000 mcg SUBLINGUAL QAM 12/10/18 09/22/21 12/18/18 5,000 mcg sublingual tablet glucosamin 375 mg-chond 300 1 cap PO QPM 04/23/21 09/22/21 Unknown mg-collagen 50 mg-hyaluronic acid 2 mg cap ibuprofen 400 mg tablet 400 mg PO Q6H PRN 04/23/21 09/22/21 Unknown pramipexole 0.25 mg tablet 0.5 mg PO QPM tab 05/07/21 09/22/21 Unknown Past Medical History Medical History (Updated 09/22/21 @ 16:25 by Azul Reynaga PA-C) Borderline high cholesterol Bradycardia Complete heart block S/p pacemaker placement 2017 (Medtronic) MOST RECENT CHECK LESS THAN A MONTH AGO Depression UNDER CONTROL Diverticulitis GERD (gastroesophageal reflux disease) Hypertension Paroxysmal atrial tachycardia No recent palpitations Restless leg SOB (shortness of breath) on exertion Chronic/gradual- stable Past Family History Family History Brother Family history of diabetes mellitus Sister Family history of diabetes mellitus Past Surgical History Surgical History History of colonoscopy History of esophagogastroduodenoscopy (EGD) History of loop recorder PLACED AND REMOVED-05/2018 History of total knee replacement LEFT Pacemaker PLACED 05/2018 Status post hernia repair X 2 Social History Smoking Status: Never smoker Do You Dip or Chew Tobacco: No Hx Alcohol Use: No Hx Substance Use: No substance use type: does not use Lab Results Anesthesia Preop Results Results Anesthesia Widget: WBC 6.09 K/uL (4.8-10.8) 09/17/21 Hgb 14.4 g/dL (12.0-16.0) 09/17/21 Hct 43.7 % (37-47) 09/17/21 Plt 176 K/uL (130-400) 09/17/21 Na 142 mmol/L (136-145) 09/17/21 K 3.9 mmol/L (3.5-5.1) 09/17/21 Cl 107 mmol/L (98-107) 09/17/21 CO2 30 mmol/L (21-32) 09/17/21 BUN 22 mg/dl (6-23) 09/17/21 Creat 0.78 mg/dl (0.6-1.2) 09/17/21 Glucose Level 78 mg/dl (70-99(Fasting)) 09/17/21 PT 11.2 Seconds (9.0-12.0) 09/17/21 PTT 27.9 Seconds (21.0-31.0) 09/17/21 INR 1.1 (0.9-1.1) 09/17/21 HA1c 5.4 % (4.5-5.6) 09/17/21 Urine Color Yellow 09/17/21 Urine Appearance Clear (Clear) 09/17/21 Urine pH 5.0 (4.5-7.5) 09/17/21 Urine Specific [place] 1.015 (1.000-1.030) 09/17/21 Urine Protein Negative (Negative) 09/17/21 Urine Glucose (UA) Negative (Negative) 09/17/21 Urine Ketones Negative (Negative) 09/17/21 Urine Blood Negative (Negative) 09/17/21 Urine Nitrite Negative (Negative) 09/17/21 Urine Bilirubin Negative (Negative) 09/17/21 Urine Urobilinogen Negative (Negative) 09/17/21 Urine Leukocyte Esterase Negative (Negative) 09/17/21 Testing Electrocardiogram Date: 04/27/21 Atrial sensed ventricular paced rhythm with prolonged AV conduction at 68bpm. Chest X-Ray Date: 04/27/21 Findings: + NAD Left subclavian pacer is in place. Mild cardiomegaly is unchanged. There is no evidence for pulmonary edema. A calcified granuloma within the right midlung is unchanged. There is no pneumothorax or pleural effusion. There is no consolidation to suggest pneumonia. Stress Test Date:06/12/18 Resting EF:65-70% Maximum of 4.6 METS on Rene protocol. stress echo is negative for inducible ischemia, mild dyspnea with no chest symptoms during exercise, no arrhythmia were noted during stress Other Testing Pacemaker check 05/07/2021 = Medtronic pacemaker. Normally functioning dual- chamber permanent pacemaker. Normal device longevity (9.4 years). Mode DDDR. One brief arrhythmia which appeared to be atrial fibrillation lasting 48 seconds. Not an indication for anticoagulation. Complete heart block: No symptoms. Nearly 100% ventricular pacing (BUS AIDE= 99.7%; AP 40.3%).
--- NOTE | 2021-09-28 15:54 | History & Physical Report ---
Date of Service September 28, 2021 Assessment & Plan (1) Primary osteoarthritis of right knee: Plan: Treatment options discussed with patient., She has failed conservative measures. She would like to proceed with surgical intervention. Risks, benefits and alternatives to surgery including but not limited to infection, DVT, pain, stiffness, need for revision surgery, damage to blood vessels, damage to nerves, PE, , were discussed with the patient and they wish to proceed. Plan on right total knee arthroplasty scheduled for [facility] on 09/29/[address] Cordon. Will plan on HHPT post op. Will plan on aspirin 81mg BID for 1 mo post op for DVT prophylaxis. All questions answered. F/u post op. History of Present Illness Chief Complaint: Right knee pain Primary Care Provider: Feliciano Mckeon 76 year old female with PMHx significant for HTN, bradycardia, complete heart block, PAT, RLS, has pacemaker. She presents with ongoing pain in her right knee. Pain interfering with her daily activities. She has failed conservative measures including injections, anti-inflammatories, home exercises. She would like to proceed with knee replacement. Patient denies headaches, sweats, fevers, chills, double vision, blurred vision, cough, sore throat, dysphagia, chest pain, sob, wheezing, n/v/d/c, numbness, tingling, fatigue, urinary symptoms, mood disorders. ROS positive for right knee pain and stiffness. Allergies Allergy/AdvReac Type Severity Reaction Status Date / Time clindamycin AdvReac Unknown nausea and Verified 09/22/21 11:14 vomiting Home Medications Medication Instructions Recorded Confirmed Type lisinopril 20 mg tablet 10 mg PO BID 06/11/18 09/22/21 History carvedilol 25 mg tablet 25 mg PO BID 12/10/18 09/22/21 History cholecalciferol (vitamin D3) 125 5,000 unit PO QAM 12/10/18 09/22/21 History mcg (5,000 unit) tablet (Vitamin D3) cyanocobalamin (vitamin B-12) 5,000 mcg SUBLINGUAL QAM 12/10/18 09/22/21 History 5,000 mcg sublingual tablet glucosamin 375 mg-chond 300 1 cap PO QPM 04/23/21 09/22/21 History mg-collagen 50 mg-hyaluronic acid 2 mg cap ibuprofen 400 mg tablet 400 mg PO Q6H PRN 04/23/21 09/22/21 History pramipexole 0.25 mg tablet 0.5 mg PO QPM tab 05/07/21 09/22/21 History Past Med/Surg History Medical History (Updated 09/28/21 @ 15:57 by Antonio Grande PA-C) Borderline high cholesterol Bradycardia Complete heart block S/p pacemaker placement 2017 (Medtronic) MOST RECENT CHECK LESS THAN A MONTH AGO Depression UNDER CONTROL Diverticulitis GERD (gastroesophageal reflux disease) Hypertension Paroxysmal atrial tachycardia No recent palpitations Restless leg SOB (shortness of breath) on exertion Chronic/gradual- stable Surgical History History of colonoscopy History of esophagogastroduodenoscopy (EGD) History of loop recorder PLACED AND REMOVED-05/2018 History of total knee replacement LEFT Pacemaker PLACED 05/2018 Status post hernia repair X 2 Family History Brother Family history of diabetes mellitus Sister Family history of diabetes mellitus Social History Smoking Status: Never smoker Second Hand Exposure: Yes (SPOUSE USED TO SMOKE); Hx Alcohol Use: No Hx Substance Use: No Preferred Language: Bulgarian Communication Ability: Effective Visual Impairment: No Limitations Hearing Ability: Normal Pants Presser Automatic Required: No Beliefs That Will Affect Care: None marital status: Current Living Situation: Spouse current occupational status: other 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 Mild effusion with medial joint line tenderness. ROM is painful. ROM 0-120 degrees. stable to valgus and varus stress, positive Kirstin's. Skin: no rashes, warm and dry Neurologic: patellar DTR's 2+ bilat, sensation intact Psychiatric: A+Ox3, euthymic affect Results & Data ([place]) Diagnostic Findings Four-view x-rays of the right knee demonstrate that she has a varus knee. She is bone on bone in the medial compartment. There is bone loss along the medial femoral condyle. There is subluxation of the femur medially on the tibia. There is joint space narrowing between the lateral femoral condyle and tibial spine. The patella demonstrates moderate arthritic changes with superior and inferior osteophytes on the lateral view. Patella is centrally aligned but some relative narrowing of the medial patellofemoral compartment where there are more osteophytes on that side of the knee.
[~2021-09-29 08:02] MED LIST: ACETAMINOPHEN 500 MG TAB PO SCH; BUPIVACAINE 0.5 % 5 MG/1 ML PF 10ML VIAL ONE; CeleBREX 200 MG CAP PO SCH; GABAPENTIN 300 MG CAP PO SCH; LR 500ML BOLUS, THEN 15ML/HR IV SCH; METOCLOPRAMIDE HCL 10 MG TABLET PO SCH; ROPIVACAINE 0.5% 5 MG/ML 30 ML VIAL ONE; ROPIVACAINE 0.5% HCL/PF 150 MG, BUPIVACAINE 0.75% MPF 20 ML, EPINEPHrine 30MG/30ML (OR ... INSTIL SCH; TRANEXAMIC ACID 1,000 MG **IV Intra-op IV SCH; TRANEXAMIC ACID 1,000 MG **IV Pre-op IV SCH; ceFAZolin 1000MG 1,000 MG/7.5 ML SYR IV SCH; dexAMETHasone 4 MG TAB PO SCH
[2021-09-29] MEDS ORDERED: MIDAZOLAM HCL 1 MG/ML 2ML VIAL ONE (08:05)
[2021-09-29] MEDS ORDERED: ePHEDrine sulfate 50 MG/ML AMP IV PRN (09:18)
[2021-09-29] MEDS ORDERED: fentaNYL citrate 100 MCG/2 ML VIAL IV PRN (09:18)
[2021-09-29] MEDS ORDERED: ATROPINE SULFATE 0.1 MG/ML 10ML SYR IV PRN (09:18)
[2021-09-29] MEDS ORDERED: ONDANSETRON INJ 2 MG/ML 2 ML VIAL IV PRN ×2 (09:18→14:59)
--- NOTE | 2021-09-29 10:55 | History & Physical Bridge Note ---
Date of Service September 29, 2021 History & Physical Bridge Note I have examined the patient, reviewed the History & Physical and in the interval since the performance of the History & Physical I have noted the following changes of clinical significance: no changes noted
[2021-09-29] MEDS ORDERED: ORTHO JOINT ANESTHETIC ONE (11:17)
[2021-09-29] MEDS ORDERED: PROPOFOL IV EMULSION 10 MG/ML 20 ML VIAL IV ONE (11:44)
[2021-09-29] MEDS ORDERED: LIDOCAINE 2% 2 ML VIAL/AMP(20MG/ML) INFIL ONE (11:48)
--- NOTE | 2021-09-29 13:44 | Post Operative Brief Note ---
Immediate Post Op Note v1 Date of Surgery September 29, 2021 Pre & Post Diagnosis Operation Date: 09/29/21 10:00 Pre-Op Diagnosis: Right Knee Osteoarthritis Post-Op Diagnosis: Right Knee Osteoarthritis I identified the patient and participated in the time-out.: Yes Procedure Operation Date: 09/29/21 10:00 Actual Procedures p Right Total Knee Arthroplasty(Right) - Javier Cordon MD Surgeon Javier Cordon MD Gas Plumber Fede CARR Estimated Blood Loss 5 Findings Consistent with Post-Op Diagnosis Specimens Bone cuts Drains Hemovac Drain (dual trocar) Anesthesia Type MAC Spinal Regional Complications none Disposition Disposition: Recovery Room Overlapping Procedure I was immediately available: during the entire case.
--- NOTE | 2021-09-29 13:53 | Operative Report ---
Post Operative Report Pre & Post Diagnosis Operation Date: 09/29/21 10:00 Pre-Op Diagnosis: Right Knee Osteoarthritis Post-Op Diagnosis: Right Knee Osteoarthritis I identified the patient and participated in the time-out.: Yes Procedure Operation Date: 09/29/21 10:00 Actual Procedures p Right Total Knee Arthroplasty(Right) - Javier Cordon MD Surgeon Javier Cordon MD Account Service Representative Fede CARR Estimated Blood Loss 5 Findings Consistent with Post-Op Diagnosis Specimens Bone cuts Drains 2 Hemovac Anesthesia Type MAC Spinal Regional Complications none Disposition Disposition: Recovery Room Indications 76-year female with chronic progressive osteoarthritis right knee [id number] medial compartment. Patient has a varus knee. Patient previous successful left knee replacement. Description of Procedure The patient was taken to the operating room and anesthetized under spinal MAC regional block. Patient was placed supine on the the operating table. A pneumatic tourniquet was placed about the right obese upper thigh. The knee exam demonstrated mostly obesity in the upper thigh not much obesity around the knee. She had a varus knee no pseudolaxity 10 through 125 degrees range of motion. The involved leg was elevated exsanguinated with Esmarch bandage and the pneumatic tourniquet was raised to 350 millimeters mercury. A longitudinal incision was made across the anterior knee. Skin flaps were elevated. An incision was made into the medial retinaculum and extended up into the mid third of the quadriceps tendon and extended down to the tibial tubercle. Intra- articular findings demonstrated tricompartmental osteoarthritis medial compartment was marked eburnated bone deep ridging on the medial femoral condyle some bone loss medial femoral condyle. The knee was exposed by excising cruciate ligaments and menisci. The infrapatellar fat pad was resected. The fat pad over the anterior femur at the upper aspect of the articular surface was resected for placement of the component in that area. A subperiosteal peel lateral release was performed around the patella The [employer] 2.0 total knee arthroplasty system was utilized for the procedure. The patient has a pacemaker so we used standard instrumentation. The femur was exposed and intramedullary drill hole was made into the femoral canal and guide monet was placed and distal femoral cutting guide adjusted for a 5 degree valgus cut and +2 resection more than standard resection. The distal femoral cut was made. Sizing guide placed and measured for a size 4 implant. The drill holes were placed in 3 degrees of external rotation to match epicondylar axis. The size 4, 5 in 1 cutting block was placed. The anterior posterior and chamfer cuts were made. It was noted during these cuts that the bone was quite thin and osteoporotic. The knee was extended and a free hand cut technique was performed to the patella. The patella with was measured and the width was reproduced using a 32 symmetrical patella component. 3 drill holes are made for the patella component pegs. There was bone cyst in the patella and this was curetted out. The tibia was then subluxed. The custom tibial cutting block was pinned in position and the proximal tibial cut was made with the oscillating saw. The size 3 tibial trial was externally rotated in line with the tibial tubercle and pinned in position. The punch for the stem was used. The femoral trial was inserted and centered the notch cutting devices were used and the collet was placed. Tibial trials were used for the insert. The size 12 posterior stabilized trial gave balanced ligaments through full range of motion. Patella tracking was assessed with range of motion. The patella tracked centrally. The trials were removed. The Orthomix anesthetic cocktail was injected per protocol. The cut bone surfaces and soft tissue were copiously irrigated with antibiotic solution with bacitracin. The final components were cemented with Simplex cement. The final components were [employer] 2.0 size 4 right femoral component, size 3 right tibia, 12 posterior stabilized polyethylene tibial insert, 32 symmetrical patella. While the cement cured the Betadine soak was used per protocol. When the cement cured the knee was copiously irrigated with pulsatile lavage antibiotic solution with bacitracin. 2 drains were brought out laterally connected to Hemovac. The quadriceps tendon and medial retinaculum were closed with interrupted [id number] #1 Vicryl sutures. The knee was taken through full range of motion and repair was secure. The subcutaneous tissues were closed with 2-0 Vicryl sutures. The skin was closed with 3-0 strata fix and Prineo glue system. A sterile dressing was applied. The tourniquet was let down and the patient had good capillary refill to the extremity. The patient tolerated the procedure well. My physician medical office assistant instructor Fede CARR assisted in the procedure including prepping draping leg positioning soft tissue retraction instrument management and assisted in the closure ,dressings application and will participate in postoperative care the patient. I attest to the content of the Intraoperative Record and any orders documented therein. Any exceptions are noted below.
--- NOTE | 2021-09-29 14:22 | Anesthesiology Progress Note ---
Date of Service September 29, 2021 Anesthesia Post Procedure Vital Signs Vital Signs: Temp Pulse Pulse Resp BP Pulse Ox 09/29/21 14:10 60 18 181/62 H 97 09/29/21 14:00 60 16 171/71 H 100 09/29/21 13:53 97.3 F L 63 18 158/56 H 98 09/29/21 08:41 97.9 F 67 20 193/80 H 96 Transfer of Care Handoff Completed per policy Notes Mental Status: alert / awake / arousable and participated in evaluation Patient Amnestic to Procedure: Yes Nausea / Vomiting: adequately controlled Pain: adequately controlled Airway Patency, RR, SpO2: stable & adequate BP & HR: stable & adequate Hydration State: stable & adequate Neuraxial Anesthesia: was administered and sensory block is resolving Anesthetic Complications: no major complications apparent and Pt Satisfied with anesthetic care
--- NOTE | 2021-09-29 14:53 | XRay Report ---
XR knee RT 1 or 2V routine CLINICAL HISTORY: Surgical Post Op. Status post total knee replacement COMPARISON STUDY: No previous studies for comparison. TECHNIQUE: 2 right knee views FINDINGS: The patient is status post total knee replacement. The prosthetic components are in anatomi c alignment with no acute abnormality seen. Air is present within the soft tissues from the procedure . IMPRESSION: 1. Status post total knee replacement ACT 112: Negative or not required by law. Electronically signed by: Ivan Ruiz M.D. 09/29/2021 2:52 PM
[2021-09-29] MEDS ORDERED: bisacodyL 10 MG SUPP PR PRN (14:59)
[2021-09-29] MEDS ORDERED: METOCLOPRAMIDE HCL INJ 5 MG/ML 2 ML VIAL IV PRN (14:59)
[2021-09-29] MEDS ORDERED: NALOXONE HCL 0.4 MG/1 ML VIAL/CARP IV PRN (14:59)
[2021-09-29] MEDS ORDERED: MAGNESIUM HYDROXIDE SUSP 30 ML UDC PO PRN (14:59)
[2021-09-29] MEDS ORDERED: oxyCODONE HCL IR 5 MG TAB (IMMEDIATE RELEASE) PO PRN (14:59)
[2021-09-29] MEDS ORDERED: HYDROmorphone INJ 0.5 MG/0.5 ML SYR IV PRN (14:59)
[2021-09-29] MEDS ORDERED: PRAMIPEXOLE DIHYDROCHLO 0.5 MG TAB PO PRN (14:59)
--- NOTE | 2021-09-29 15:34 | Consultation ---
Date of Consultation September 29, 2021 Assessment & Plan (1) Primary osteoarthritis of right knee: s/p TKR today by Dr Cordon. Defer IV fluids, pain control, disposition to primary orthopedic team. DVT proph chosen - aspirin 81mg BID. (2) Complete heart block: s/p permanent pacemaker placement 2017. follows with Dr Melo, [facility]. no recent issues. previous EKG 09/17/21 with pacing. regular rhythm on exam today. (3) Hypertension: Continue coreg BID. Would hold YOU inhibitor until creatinine is rechecked in am. (4) Pacemaker: as above (5) GERD (gastroesophageal reflux disease): Due to asa BID and celebrex BID consider empiric PPI. (6) Restless leg: Cont pramipexole HS. (7) DVT prophylaxis: aspirin 81mg BID. will f/u on labs in am History of Present Illness Requesting Physician: Javier Cordon MD Reason for Consultation: post-operative medical management Attending Physician: Javier Cordon MD History of Present Illness Mrs. Mitchell is a 76yo female with a history of Hypertension, Hypercholesterolemia, Complete Heart Block s/p Medtronic Pacemaker 2018, Paroxysmal Atrial Tachycardia, Osteoarthritis, GERD, and RLS who presented today for elective right TKR by Dr Cordon. The surgery was uncomplicated and blood loss was documented as minimal. Since her surgery her vitals have been stable. During my assessment she denies all complaints - no chest pain, dizziness, dyspnea, abd pain, nausea, vomiting, or any significant right knee pain. Prior to her surgery she has been feeling well with the exception of right knee pain. 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 She is hoping to d/c home tomorrow; rehab is not planned. Allergies Allergy/AdvReac Type Severity Reaction Status Date / Time clindamycin AdvReac Unknown nausea and Verified 09/29/21 08:38 vomiting Home Medications Medication Instructions Recorded Confirmed Type lisinopril 20 mg tablet 10 mg PO BID 06/11/18 09/29/21 History carvedilol 25 mg tablet 25 mg PO BID 12/10/18 09/29/21 History cholecalciferol (vitamin D3) 125 5,000 unit PO QAM 12/10/18 09/29/21 History mcg (5,000 unit) tablet (Vitamin D3) cyanocobalamin (vitamin B-12) 5,000 mcg SUBLINGUAL QAM 12/10/18 09/29/21 History 5,000 mcg sublingual tablet glucosamin 375 mg-chond 300 1 cap PO QPM 04/23/21 09/29/21 History mg-collagen 50 mg-hyaluronic acid 2 mg cap ibuprofen 400 mg tablet 400 mg PO Q6H PRN 04/23/21 09/29/21 History pramipexole 0.25 mg tablet 0.5 mg PO QPM PRN tab 05/07/21 09/22/21 History (Mirapex) Patient History Medical History (Updated 09/29/21 @ 16:19 by Lauro Armenta) Borderline high cholesterol Bradycardia Complete heart block S/p pacemaker placement 2017 (Medtronic) MOST RECENT CHECK LESS THAN A MONTH AGO Depression UNDER CONTROL Diverticulitis GERD (gastroesophageal reflux disease) Hypertension Paroxysmal atrial tachycardia No recent palpitations Restless leg SOB (shortness of breath) on exertion Chronic/gradual- stable Surgical History History of colonoscopy History of esophagogastroduodenoscopy (EGD) History of loop recorder PLACED AND REMOVED-05/2018 History of total knee replacement LEFT Pacemaker PLACED 05/2018 Status post hernia repair X 2 Family History (Updated 09/29/21 @ 16:13 by Lauro Armenta) Brother Family history of diabetes mellitus Sister Family history of diabetes mellitus Father , age 59 Myocardial infarction Mother , age 60; in her sleep No problems noted. 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 [place] How many Children do You have: 2 Other Information That Helps Us Care for You: No Feels Safe at Home: Yes Assistive Devices: None Assistive Devices Comment: LOWER PARTIAL Review of Systems Review of Systems: gen - no recent fevers, chills, weight loss, anorexia HENT - no dysphagia CV - no exertional chest pain pulm - no cough or congestion; minimal dyspnea on exertion at peak activity for about 2 years GI - no abd pain, nausea, emesis, diarrhea - no voiding issues musculo - chronic right knee pain neuro - no headaches skin - no rash endo - no diabetes Physical Exam Physical Exam: gen - looks great, NAD, a/o x 3 eyes - PERRL HENT - MMM, no lesions neck - no JVD heart - RRR, s1 s2, no murmur lungs - CTA b/l abd - soft, NT, ND, BS+, no HSM ext - no edema, pulses 2+ b/l neuro - b/l arm strength 5/5; left leg strength 5/5; did not test right leg musculo - right knee dressings in place, drain in place psych - a/o x 3 Results & Data ([facility]) Vital Signs (Past 12 Hours) Vital Signs Temp Pulse Pulse Resp BP Pulse Ox 09/29/21 15:28 36.6 C 60 16 155/78 H 95 09/29/21 15:02 36.5 C 60 16 162/65 H 95 09/29/21 14:58 36.4 C L 60 18 156/68 H 96 09/29/21 14:40 60 18 157/55 H 94 09/29/21 14:30 36.3 C L 61 21 185/61 H 94 09/29/21 14:20 60 17 156/55 H 95 09/29/21 14:10 60 18 181/62 H 97 09/29/21 14:00 60 16 171/71 H 100 09/29/21 13:53 36.3 C L 63 18 158/56 H 98 09/29/21 08:41 36.6 C 67 20 193/80 H 96 Laboratory Results preop labs 09/17/21 wnl EKG 09/17/21 - pacing PG Care Time/CCT Total # of Minutes Spent Total Time Spent with Patient: Total time spent is greater than 50% in coordination of care (as documented) at patient's floor/unit and/or counseling patient: Coding Level of Care Code 75243 Subseq Obs Care Lvl 3 Diagnoses Primary osteoarthritis of right knee M17.11 Complete heart block I44.2 Hypertension I10 Hypertension type: unspecified Pacemaker Z95.0 GERD (gastroesophageal reflux disease) K21.9 Restless leg G25.81 DVT prophylaxis Z29.9 (1) Hypertension Hypertension type: unspecified Qualified Code(s): I10 - Essential (primary) hypertension
[2021-09-29] MEDS: SODIUM CHLORIDE 0.9% 1000ML 1,000 ML IV SCH (15:46)
[2021-09-29] MEDS: ACETAMINOPHEN 500 MG TAB PO SCH ×2 (15:51→20:37)
[2021-09-29] MEDS: PANTOprazole 40 MG TAB PO SCH (18:12)
[2021-09-29] MEDS: ASPIRIN 81 MG ECTAB PO SCH (20:37)
[2021-09-29] MEDS: carvediloL 25 MG TAB PO SCH (20:37)
[2021-09-29] MEDS: ceFAZolin 1000MG 1,000 MG/7.5 ML SYR IV SCH (20:37)
[2021-09-29] MEDS: DOCUSATE SODIUM 100 MG CAP PO SCH (20:38)
[2021-09-29] MEDS: CeleBREX 200 MG CAP PO SCH (20:38)
[2021-09-29] MEDS ORDERED: SENNA 8.6 MG TAB PO SCH (21:00)
[2021-09-29] MEDS ORDERED: lisinopril 10 MG TAB PO SCH (21:00)
[2021-09-30] MEDS: SODIUM CHLORIDE 0.9% 1000ML 1,000 ML IV SCH (01:41)
[2021-09-30] MEDS: ACETAMINOPHEN 500 MG TAB PO SCH ×2 (04:57→14:25)
[2021-09-30] MEDS: ceFAZolin 1000MG 1,000 MG/7.5 ML SYR IV SCH (04:57)
[2021-09-30 06:28] LABS: Hematocrit (blood only) 34.2 % (37-47); Hemoglobin 11.6 g/dL (12.0-16.0); Mean Corpuscular Hemoglobin 30.9 pg (25-34); Mean Corpuscular Hgb Conc 33.9 g/dL (32-36); Mean Corpuscular Volume 91.2 fL (80-100); Mean Platelet Volume 11.2 fL (7.4-10.4); Platelet Count 156 K/uL (130-400); RDW Coefficient of Variation 13.3 % (11.5-14.5); RDW Standard Deviation 44.3 fL (36.4-46.3); Red Blood Count 3.75 M/uL (4.2-5.4); White Blood Count 13.19 K/uL (4.8-10.8)
[2021-09-30 06:53] LABS: BUN Creatinine Ratio 37.3 (10-20); Calcium 8.2 mg/dl (8.5-10.1); Creatinine Clr Calc Pharmacy 65.8 ml/min; Est GFR (African American) 98.3 ml/min; Est GFR (Non-African American) 84.8 ml/min
[2021-09-30] MEDS ORDERED: CHOLECALCIFEROL 5,000 UNITS 125 MCG TAB PO SCH (09:00)
[2021-09-30] MEDS ORDERED: CYANOCOBALAMIN (B-12) 2,500 MCG TABLET SL SCH (09:00)
[2021-09-30] MEDS ORDERED: MULTIVITAMIN TAB PO SCH (09:00)
[2021-09-30] MEDS: carvediloL 25 MG TAB PO SCH (09:05)
[2021-09-30] MEDS: DOCUSATE SODIUM 100 MG CAP PO SCH (09:06)
[2021-09-30] MEDS: CeleBREX 200 MG CAP PO SCH (09:06)
[2021-09-30] MEDS: PANTOprazole 40 MG TAB PO SCH (09:06)
[2021-09-30] MEDS: ASPIRIN 81 MG ECTAB PO SCH (09:06)
--- NOTE | 2021-09-30 10:40 | Orthopedic Progress Note ---
Date of Service September 30, 2021 Assessment & Plan (1) Primary osteoarthritis of right knee: Plan: Postop day 1 status post right total knee arthroplasty. PT/OT protocols. Weightbearing as tolerated. Patient progressing well. DVT prophylaxis-aspirin p.o. twice daily, SCDs, MEHUL herrera. Pain management as written. DC planning-patient is planning for outpatient PT upon discharge. Admission and Anticipated Discharge Date Admission Date: September 29, 2021 Subjective Postop day 1 Patient sitting up in bed awake and alert. No complaints this morning ; pain is controlled. Denies shortness of breath, chest pain, lightheadedness. Patient states that she has gone through her PT and OT protocols this morning and did well. She ambulated the hallway and went up and down steps. Physical Exam Physical Exam: Dressings are clean, dry, and intact. Hemovac drain has been discontinued. Calves are soft and nontender. Neurovascular intact. Toes are mobile. She has good dorsiflexion and plantarflexion of the right foot. Results & Data ([facility]) Vital Signs (Past 12 Hours) Vital Signs Temp Pulse Resp BP Pulse Ox 09/30/21 07:42 36.6 C 61 16 138/68 96 09/30/21 03:07 36.7 C 59 L 16 110/57 L 92 Laboratory Results Laboratory Results WBC 13.19 K/uL (4.8-10.8) H 09/30/21 06:09 RBC 3.75 M/uL (4.2-5.4) L 09/30/21 06:09 Hgb 11.6 g/dL (12.0-16.0) L 09/30/21 06:09 Hct 34.2 % (37-47) L 09/30/21 06:09 MCV 91.2 fL (80-100) 09/30/21 06:09 MCH 30.9 pg (25-34) 09/30/21 06:09 MCHC 33.9 g/dL (32-36) 09/30/21 06:09 RDW Std Deviation 44.3 fL (36.4-46.3) 09/30/21 06:09 RDW Coeff of Mohinder 13.3 % (11.5-14.5) 09/30/21 06:09 Plt Count 156 K/uL (130-400) 09/30/21 06:09 MPV 11.2 fL (7.4-10.4) H 09/30/21 06:09 Sodium 139 mmol/L (136-145) 09/30/21 06:09 Potassium 4.0 mmol/L (3.5-5.1) 09/30/21 06:09 Chloride 111 mmol/L (98-107) H 09/30/21 06:09 Carbon Dioxide 22 mmol/L (21-32) 09/30/21 06:09 Anion Gap 6 (3-11) 09/30/21 06:09 BUN 25 mg/dl (6-23) H 09/30/21 06:09 Creatinine 0.67 mg/dl (0.6-1.2) 09/30/21 06:09 Est Cr Clr Drug Dosing 65.8 ml/min 09/30/21 06:09 Est GFR ( Amer) 98.3 ml/min 09/30/21 06:09 Est GFR (Non-Af Amer) 84.8 ml/min 09/30/21 06:09 BUN/Creatinine Ratio 37.3 (10-20) H 09/30/21 06:09 Glucose 123 mg/dl (70-99(Fasting)) H 09/30/21 06:09 Calcium 8.2 mg/dl (8.5-10.1) L 09/30/21 06:09 SARS-CoV-2, RNA, NAAT NEGATIVE (NEGATIVE) 09/29/21 Unknown Blood Type A Positive 09/29/21 08:19 Antibody Screen NEGATIVE 09/29/21 08:19 Impressions Knee X-Ray 09/29/21 13:56 XR knee RT 1 or 2V routine CLINICAL HISTORY: Surgical Post Op. Status post total knee replacement COMPARISON STUDY: No previous studies for comparison. TECHNIQUE: 2 right knee views FINDINGS: The patient is status post total knee replacement. The prosthetic components are in anatomic alignment with no acute abnormality seen. Air is present within the soft tissues from the procedure. IMPRESSION: 1. Status post total knee replacement ACT 112: Negative or not required by law. Electronically signed by: Ivan Ruiz M.D. 09/29/2021 2:52 PM
--- NOTE | 2021-09-30 11:39 | Hospitalist Progress Note ---
Date of Service September 30, 2021 Assessment & Plan (1) Primary osteoarthritis of right knee: Plan: POD #1 s/p right TKR by Dr Cordon. Doing well from ortho standpoint; they plan to d/c her home today. DVT proph - aspirin 81mg BID per ortho. Mild amount of acute blood loss anemia -- no Rx needed. (2) Complete heart block: Plan: s/p permanent pacemaker placement 2018. follows with Dr Melo, [facility]. no recent issues. previous EKG 09/17/21 with pacing. regular rhythm on exam once again today. (3) Hypertension: Plan: Continue coreg BID. OK to resume lisinopril, but would cut dose to 10mg once daily (from BID dosing). I placed this recommendation in d/c paperwork. Mild acute blood loss anemia likely contributing to her well-controlled BPs (even despite not getting any lisinopril this am). (4) Pacemaker: Plan: as above (5) GERD (gastroesophageal reflux disease): Plan: Due to asa BID Pt not going home on celebrex thus, hold off on PPI for now at discharge (6) Restless leg: Plan: Cont pramipexole HS. (7) DVT prophylaxis: Plan: aspirin 81mg BID. Plan: I discussed signs/symptoms of ileus with her if she were to get home and have any bowel issues. Discussed constipation aids - wrote these down for her in d/c paperwork. Ok from medical standpoint to d/c home today. Admission and Anticipated Discharge Date Admission Date: September 29, 2021 Subjective no issues overnight feels good worked with PT/OT no dizziness, cp, dyspnea, JOHNS, abd pain passing flatus; no stool yet ate good breakfast Review of Systems Review of Systems: gen - good energy, good appetite GI - no nausea or emesis pulm - no dyspnea CV - no orthopnea Physical Exam Physical Exam: gen - looks great, NAD, pleasant neck - no JVD mouth - MMM heart - RRR, s1 s2, no murmur lungs - CTA b/l abd - soft NT ND BS+ ext - mild edema of right leg from the knee down to ankle; no edema LLE; pulses 2+ b/l musculo - right knee in dressings Results & Data Results & Data ([facility]) Vital Signs (Past 12 Hours) Vital Signs Temp Pulse Pulse Pulse Resp BP Pulse Ox 09/30/21 10:36 36.6 C 62 61 67 16 138/68 96 09/30/21 07:42 36.6 C 61 16 138/68 96 09/30/21 03:07 36.7 C 59 L 16 110/57 L 92 Laboratory Results Laboratory Results - last 24 hr 09/30/21 09/30/21 06:09 06:09 WBC 13.19 H RBC 3.75 L Hgb 11.6 L Hct 34.2 L MCV 91.2 MCH 30.9 MCHC 33.9 RDW Std Deviation 44.3 RDW Coeff of Mohinder 13.3 Plt Count 156 MPV 11.2 H Sodium 139 Potassium 4.0 Chloride 111 H Carbon Dioxide 22 Anion Gap 6 BUN 25 H Creatinine 0.67 Est Cr Clr Drug Dosing 65.8 Est GFR ( Amer) 98.3 Est GFR (Non-Af Amer) 84.8 BUN/Creatinine Ratio 37.3 H Glucose 123 H Calcium 8.2 L PG Care Time/CCT Total # of Minutes Spent Total Time Spent with Patient: Total time spent is greater than 50% in coordination of care (as documented) at patient's floor/unit and/or counseling patient: Coding Level of Care Code 44820 Subseq Obs Care Lvl 2 Diagnoses Primary osteoarthritis of right knee M17.11 Complete heart block I44.2 Hypertension I10 Hypertension type: unspecified Pacemaker Z95.0 GERD (gastroesophageal reflux disease) K21.9 Restless leg G25.81 DVT prophylaxis Z29.9 (1) Hypertension Hypertension type: unspecified Qualified Code(s): I10 - Essential (primary) hypertension
--- NOTE | 2021-10-03 20:05 | Discharge Summary ---
Date of Service October 03, 2021 Admission HPI Per Admitting Provider 76 year old female with PMHx significant for HTN, bradycardia, complete heart block, PAT, RLS, has pacemaker. She presents with ongoing pain in her right knee. Pain interfering with her daily activities. She has failed conservative measures including injections, anti-inflammatories, home exercises. She would like to proceed with knee replacement. Patient denies headaches, sweats, fevers, chills, double vision, blurred vision, cough, sore throat, dysphagia, chest pain, sob, wheezing, n/v/d/c, numbness, tingling, fatigue, urinary symptoms, mood disorders. ROS positive for right knee pain and stiffness. Admission Exam Per Admitting Provider Constitutional: well developed and well nourished; no acute distress Eyes: PERRL, conjunctivae normal, anicteric sclerae ENMT: external ear and nose normal, oropharynx normal Neck: trachea midline, no thyromegaly Respiratory: normal respiratory effort, lungs clear to auscultation Cardiovascular: RRR, no murmur, no edema Musculoskeletal: Right knee: Varus alignment. Mild effusion with medial joint line tenderness. ROM is painful. ROM 0-120 degrees. stable to valgus and varus stress, positive Kirstin's. Skin: no rashes, warm and dry Neurologic: patellar DTR's 2+ bilat, sensation intact Psychiatric: A+Ox3, euthymic affect Principal Diagnosis Right knee osteoarthritis Discharge Exam Dressings are clean, dry, and intact. Hemovac drain has been discontinued. Calves are soft and nontender. Neurovascular intact. Toes are mobile. She has good dorsiflexion and plantarflexion of the right foot. Constitutional well developed and well nourished; no acute distress Discharge Data Allergies Allergy/AdvReac Type Severity Reaction Status Date / Time clindamycin AdvReac Unknown nausea and Verified 09/29/21 08:38 vomiting Consultations 09/27/21 13:56 Consult Hospitalist Routine Procedures Performed Operation Date: 09/29/21 10:00 Actual Procedures p Right Total Knee Arthroplasty(Right) - Javier Cordon MD Ordered Studies 09/29/21 05:00 US - OR guided needle placemen Routine Hospital Course (1) Primary osteoarthritis of right knee: Patient presented for same day admission following right TKA on 09/29/21. She tolerated procedure well. The Patient had an uneventful hospital course. Post-operatively, her activity was progressed and well tolerated. They p articipated in PT with ambulation distance of 325 feet. ROM of operative knee reached 83 degrees. Labs remained stable- lowest hemoglobin recorded: 11.6. Dr. Lauro Armenta of medical service was consulted for medical management during admission. Pain controlled on oral medications. Please refer to daily progress notes and PT notes for complete details. After exam on 09/30/21, patient was felt to be stable for discharge home with home health PT. Patient will f/u in the office in about 2 weeks for further evaluation including x-rays and incision check, sooner if having any issues or concerns. Postop day 1 status post right total knee arthroplasty. PT/OT protocols. Weightbearing as tolerated. Patient progressing well. DVT prophylaxis-aspirin p.o. twice daily, SCDs, MEHUL herrera. Pain management as written. DC planning-patient is planning for PT upon discharge. Lab Results 09/29/21 09/29/21 09/30/21 Range/Units 08:19 Unknown 06:09 WBC 13.19 H (4.8-10.8) K/uL RBC 3.75 L (4.2-5.4) M/uL Hgb 11.6 L (12.0-16.0) g/dL Hct 34.2 L (37-47) % MCV 91.2 (80-100) fL MCH 30.9 (25-34) pg MCHC 33.9 (32-36) g/dL RDW Std Deviation 44.3 (36.4-46.3) fL RDW Coeff of Mohinder 13.3 (11.5-14.5) % Plt Count 156 (130-400) K/uL MPV 11.2 H (7.4-10.4) fL Sodium (136-145) mmol/L Potassium (3.5-5.1) mmol/L Chloride (98-107) mmol/L Carbon Dioxide (21-32) mmol/L Anion Gap (3-11) BUN (6-23) mg/dl Creatinine (0.6-1.2) mg/dl Est Cr Clr Drug Dosing ml/min Est GFR ( Amer) ml/min Est GFR (Non-Af Amer) ml/min BUN/Creatinine Ratio (10-20) Glucose (70-99(Fasting)) mg/dl Calcium (8.5-10.1) mg/dl SARS-CoV-2, RNA, NAAT NEGATIVE (NEGATIVE) Blood Type A Positive Antibody Screen NEGATIVE 09/30/21 Range/Units 06:09 WBC (4.8-10.8) K/uL RBC (4.2-5.4) M/uL Hgb (12.0-16.0) g/dL Hct (37-47) % MCV (80-100) fL MCH (25-34) pg MCHC (32-36) g/dL RDW Std Deviation (36.4-46.3) fL RDW Coeff of Mohinder (11.5-14.5) % Plt Count (130-400) K/uL MPV (7.4-10.4) fL Sodium 139 (136-145) mmol/L Potassium 4.0 (3.5-5.1) mmol/L Chloride 111 H (98-107) mmol/L Carbon Dioxide 22 (21-32) mmol/L Anion Gap 6 (3-11) BUN 25 H (6-23) mg/dl Creatinine 0.67 (0.6-1.2) mg/dl Est Cr Clr Drug Dosing 65.8 ml/min Est GFR ( Amer) 98.3 ml/min Est GFR (Non-Af Amer) 84.8 ml/min BUN/Creatinine Ratio 37.3 H (10-20) Glucose 123 H (70-99(Fasting)) mg/dl Calcium 8.2 L (8.5-10.1) mg/dl SARS-CoV-2, RNA, NAAT (NEGATIVE) Blood Type Antibody Screen Total Time Total Time Spent Total Time Spent (In Minutes): 20 Discharge Plan Discharge Items Patient Disposition: Home - Home Health Services Reason For Visit: Right Knee Osteoarthritis Discharge Diagnosis: Right Knee Osteoarthritis Activity: Per Instructions section Weightbearing: Right weightbearing Weightbearing Comment: as tolerated with walker Non-emergency contact: Surgeon Call non-emergency contact if: you have any medication questions, your pain is not controlled, your pain is concerning for you, you have a fever, your temperature is above 101, your wound has increased redness and your wound has increased drainage Follow-up/Referrals: Javier Cordon MD [Surgeon] - (Follow up with Dr Cordon in 14 days from the day of surgery. ) Feliciano cMkeon PA-C [Primary Care Provider] - Diet: Regular Addtl Attending Provider Instructions: ACTIVITY RECOMMENDATIONS: SELF CARE INSTRUCTIONS AFTER TOTAL KNEE REPLACEMENT A. You may need to continue a physical therapy program after discharge from the hospital. There are several options available to you. Your doctor will assist you in selecting the best one for you. 1. An out-patient facility 2 to 3 times a week for therapy or home therapy. 2. Continue working on all exercises taught to you in the hospital. Your goals should be to increase bending of your knee to 90 degrees and beyond and to fully straighten your knee. B. You may progress at your own pace from walking with a walker or crutches to a cane; then to no assistive devices. C. Make walking a part of your daily routine. Be up as much as comfortable with rest periods throughout the day. Rest with leg elevation is very important. Use the ice wrap frequently for the first 3-4 weeks. D. There are no restrictions on activities. You may ride in a car, shop, participate in onshore diver and all social activities. E. Wear the long elastic stockings (MEHUL hose) 20 hours a day for 2 weeks after surgery. They can be removed several times a day for laundering and for a bath. F. You may shower, no tub baths until cleared by your doctor. Do not soak the wound. No direct shower pressure on the wound. SPECIAL CARE INSTRUCTIONS: VERY IMPORTANT TO READ AND REVIEW A. There are a few signs you need to watch for after you are home. Call [facility] if you notice any of the followin. Increased severe knee pain. Some pain is expected especially when you exercise. 2. Increased swelling in your leg or knee; pain or swelling of the calf muscle in either lower leg. 3. Any fluid drainage from the incision. 4. Shortness of breath or chest pain. B. Please call [facility] at if you have any concerns or questions about your operation or recovery. The doctor or his nurse will return your call promptly. C. You must take antibiotics before dental work, bladder, bowel or other surgery. Your doctor will provide you with a permanent care to carry describing this precaution. IMPORTANT: * REMEMBER TO TAKE ASPIRIN, 81 MG, TWICE DAILY FOR 4 WEEKS UNLESS OTHERWISE DIRECTED. THIS IS YOUR BLOOD THINNER. * HIGH RISK PATIENTS MAY BE PRESCRIBED A STRONGER BLOOD THINNER. THIS WILL BE PROVIDED AT DISCHARGE. * CALL IF INCREASED PAIN, REDNESS, DRAINAGE OR FEVER GREATER THAT 101. * WEAR MEHUL HOSE 20 HOURS PER DAY FOR 2 WEEKS. * YOU CAN TAKE THE YOU BANDAGE AND ORIGINAL DRESSING OFF ON 10/01/21. CONTINUE TO KEEP A SMALL DRESSING ON THE WOUND TO PROTECT IT. * This is a mesh tape dressing that is covered with glue. It should remain in place until the incision is properly healed, usually 10-14 days. This dressing is designed to naturally slough off. You may trim the excess mesh tape as it peels off. Incision may be briefly wet in a shower. Dry immediately by blotting with a clean, dry towel. Do not bath or swim until instructed by your doctor. Do not scratch, rub, or pick at the dressing. Do not apply any topical ointments or lotions until dressing is completely removed and/or instructed by your doctor. There may be a small piece of suture material at one end of your incision. Do not pull or trim this. If it is bothersome or catching on clothing, you may cover it with a band-aid. IF INCISION IS LEAKING THROUGH DRESSING, CALL THE OFFICE . FOLLOW UP VISIT: If appointment is not already scheduled: Please call [facility] to make a follow-up appointment for 2 weeks after your surgery at . Addtl Web Ui Designer Provider Instructions: From Lauro Armenta hospitalist- 1. please lower your lisinopril to 10mg once daily (you had been taking it twice daily prior). Please follow-up with your family doctor for your blood pressure. 2. for constipation you may need to take 1 or more [id number] medications to keep your bowels regular. * I would recommend miralax once daily. * If needed you can also add in senakot (senna) once daily. * If you notice that you are not passing gas from your bottom, becoming bloated in your abdomen, having nausea or vomiting, etc - please call your family doctor right away. Best wishes for a speedy recovery! Stand-Alone Forms: [employer], Smoking Cessation Medications and DC Order Prescriptions: New aspirin 81 mg Tablet,Delayed Release (Dr/Ec) 81 mg PO BID 30 Days Qty: 60 RF: 0 acetaminophen [Tylenol Extra Strength] 500 mg Tablet 1,000 mg PO Q8 14 Days Qty: 84 RF: 0 polyethylene glycol 3350 [Miralax] 17 gram powder in packet 17 g PO DAILY PRN (Reason: constipation) Qty: 5 RF: 0 oxycodone 5 mg Tablet 5 mg PO Q4H MDD 6 PRN (Reason: pain) Qty: 30 RF: 0 Continued carvedilol 25 mg tablet 25 mg PO BID RF: 0 cholecalciferol (vitamin D3) [Vitamin D3] 5,000 unit Tablet 5,000 unit PO QAM RF: 0 cyanocobalamin (vitamin B-12) 5,000 mcg Tablet, Sublingual 5,000 mcg SUBLINGUAL QAM RF: 0 pramipexole [Mirapex] 0.25 mg tablet 0.5 mg PO QPM PRN (Reason: restless legs) RF: 0 [id number]-[id number]-hyalur ac [id number] mg Capsule 1 cap PO QPM RF: 0 Changed lisinopril 20 mg Tablet 10 mg PO DAILY Qty: 0 RF: 0 Discontinued ibuprofen 400 mg Tablet 400 mg PO Q6H PRN (Reason: Pain) RF: 0 Discharge Orders: Discharge Order (Routine); Ordered 09/30/21 Ordered By: Jaden Duarte Admission Data Admit Date/Time: 09/29/21 13:56 Attending Provider: Javier Cordon Admit Provider: Javier Cordon Primary Care Provider: Feliciano Mckeon Other Providers: Lauro Armenta [facility],Referral Center ; [facility],Home Healthcare Other Interventions: Discharge Summary Assessment (RN) Last Done: 09/30/21 10:36
== END 2021-09-30 16:23 | disposition home health service (06) ==
LOC: 3E 08:02 → ASU 08:02
DX: I47.1 Supraventricular tachycardia; I44.2 Atrioventricular block, complete; Z95.0 Presence of cardiac pacemaker; G25.81 Restless legs syndrome; K21.9 Gastro-esophageal reflux disease without esophagitis; M17.11 Unilateral primary osteoarthritis, right knee; Z96.652 Presence of left artificial knee joint; I10 Essential (primary) hypertension

== ENCOUNTER 2021-10-05 08:32 | Observation (INO) ==
--- NOTE | 2021-10-05 08:50 | Emergency Department Note ---
Impression & Plan Hypertension, Knee pain, DVT (deep venous thrombosis) ED Provider Note NAME: PRAVIN MORRISON AGE: 76 SEX: F : 1945 ARRIVES VIA: Walk-In INFORMANT: Patient, ED PROVIDER(S): Mil You MD Chief Complaint: Knee pain, high blood pressure HPI: Patient has a history of hypertension bradycardia status post pacemaker who had presented recently for chronic right knee pain. Patient did have a right total knee arthroplasty completed by Dr. Silverio September 29 and was subsequently discharged on the . Patient returns today for worsening pain and high blood pressure. Patient states that she has had intermittent discomfort over the right knee which she had recent surgery completed on but it is not improving with Tylenol or oxycodone which she took this morning. Patient does take primarily lisinopr il and Coreg for hypertension and typically takes a half of her lisinopril in the morning and half in the evening but this morning took a whole dose. Patient has any fevers chills chest pain shortness of breath. The patient denies any other pain except over the right knee which described as a dull ache which is occasionally more severe and radiates up and down the leg. Patient denies any falls trauma twisting or turning. Patient states she might have some increase stress just from the pain but no increased salt in the diet, caffeine, tobacco, alcohol or drug use. Patient states she is compliant with her antihypertensives. ROS: See HPI for pertinent positives and negatives. A total of 10 systems were reviewed and otherwise negative. Past medical history: See below Surgical history: See below Social history: See below Physical Exam: GENERAL: NAD, wearing a mask, non-toxic. EYE EXAM: Normal conjunctiva. PERRL, no anisocoria and EOM's grossly intact w/o pain. OROPHARYNX: Moist mucus membranes. Grossly normal dentition. NECK: Supple, no nuchal rigidity, no adenopathy, non-tender. No signs of meningismus. LUNGS: Clear to auscultation. Normal chest wall mechanics. HEART: NSR, no MRG. ABDOMEN: Abdomen soft, non-tender, normo-active bowel sounds, no masses, no rebound or guarding. BACK: No CVA TTP. SKIN: No rashes and no bruising. UPPER EXTREMITIES: Upper extremities are grossly normal. LOWER EXTREMITIES: Grossly normal, mild ecchymosis over the RLE, it is over the right anterior knee, neurovascular intact distally, good DP pulse. No calf pain. No leg asymmetry. NEURO EXAM: A&O x3, cranial nerves II-XII grossly intact, normal speech, moves all 4 extremities on command w/o issue. Differential diagnoses: Benign hypertension, hypertensive emergency, cardiovascular pathology, toxicologic, pheochromocytoma, electrolyte abnormality, renal disease, endorgan damage, as well as other pathologies. Course: Patient was seen and evaluated the bedside. Full history physical exam was performed. EKG interpreted by me sensed V paced rhythm, rate of 63, wide QRS, left bundle branch block pattern. Imaging Studies: See Below Cardiac monitoring: An order was placed for continuous cardiac monitoring. The monitor shows a rate of 69 with regular rhythm. MDM: Patient seen for hypertension and knee pain. Blood work obtained and plain films/DVT study. Patient's pain was treated with IV morphine. Patient is a normal white counts with trace anemia hemoglobin 11.3. Platelet count is unremarkable. Kidney function fairly unremarkable with mild prerenal azotemia. Bilirubin is slightly elevated but the patient has no right upper quadrant pain. Patient's x-ray does shows some prepatellar swelling likely consistent with the patient's recent surgery. The patient's DVT ultrasound was positive for DVT. I did speak with the on-call emergency orthopedics Jaden Duarte PA-C who is agreeable to having the patient stay especially after speaking with pharmacy as the patient would be at increased risk of bleeding by starting a DOAC as an outpatient. They are amenable to starting heparin at this time. This was ordered. I did speak the on-call hospitalist Dr. Cruz and the patient was admitted to the medicine service. Critical Care: I have personally spent 37 minutes of critical care time in direct management of this patient. This includes bedside care, interpretation of diagnostic studies, and testing, discussion with consultants, patient, and family members, and other require inpatient management activities. This 37 minutes is in excess of all separately billable procedures. Past Med/Surg History Medical History Borderline high cholesterol Bradycardia Complete heart block S/p pacemaker placement 2018 ([employer]) MOST RECENT CHECK LESS THAN A MONTH AGO Depression UNDER CONTROL Diverticulitis GERD (gastroesophageal reflux disease) Hypertension Paroxysmal atrial tachycardia No recent palpitations Restless leg SOB (shortness of breath) on exertion Chronic/gradual- stable Surgical History History of colonoscopy History of esophagogastroduodenoscopy (EGD) History of loop recorder PLACED AND REMOVED-05/2018 History of total knee replacement LEFT Pacemaker PLACED 05/2018 Status post hernia repair X 2 Family History Brother Family history of diabetes mellitus Sister Family history of diabetes mellitus Father , age 59 Myocardial infarction Mother , age 60; in her sleep No problems noted. 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 [place] How many Children do You have: 2 Feels Safe at Home: Yes Assistive Devices: None Allergies Allergies Allergy/AdvReac Type Severity Reaction Status Date / Time clindamycin AdvReac Unknown nausea and Verified 10/05/21 10:33 vomiting Home Meds Home Medications Medication Instructions Recorded Confirmed carvedilol 25 mg tablet 25 mg PO BID 12/10/18 10/05/21 cholecalciferol (vitamin D3) 125 5,000 unit PO QAM 12/10/18 10/05/21 mcg (5,000 unit) tablet (Vitamin D3) cyanocobalamin (vitamin B-12) 5,000 mcg SUBLINGUAL QAM 12/10/18 10/05/21 5,000 mcg sublingual tablet aspirin 81 mg tablet,delayed 81 mg PO QAM 10/05/21 10/05/21 release lisinopril 20 mg tablet 10 mg PO BID 10/05/21 10/05/21 ondansetron 4 mg disintegrating 4 mg TRANSLINGUAL Q6H PRN 10/05/21 10/05/21 tablet sennosides 8.6 mg tablet (Senokot) 8.6 mg PO DAILY PRN 10/05/21 10/05/21 Previous Rx's Medication Instructions Recorded acetaminophen 500 mg tablet 1,000 mg PO Q8 14 Days #84 tab 09/30/21 (Tylenol Extra Strength) oxycodone 5 mg tablet 5 mg PO Q4H PRN #30 tab MDD 6 09/30/21 Results & Data (ED) Vital Signs Vital Signs - 24 hr 10/05/21 08:33 10/05/21 08:49 10/05/21 08:54 Temperature 36.6 C Temperature Source Oral Pulse Rate 66 66 70 Pulse Rate from SpO2 Sensor 66 71 Respiratory Rate 18 22 18 Blood Pressure 183/70 H 193/63 H Blood Pressure [Left Arm] Blood Pressure Mean 107 106 Blood Pressure Mean [Left Arm] Blood Pressure Position Sitting Pulse Oximetry 97 95 98 Oxygen Delivery Method Room Air Room Air Room Air Sepsis Recent Fever Within 48 Hours No Sepsis New/Unexplained Change in Mental Status No Sepsis Action Taken by Nursing No Action Required 10/05/21 09:00 10/05/21 09:27 10/05/21 09:30 Temperature Temperature Source Pulse Rate 68 64 Pulse Rate from SpO2 Sensor 68 64 Respiratory Rate 22 21 Blood Pressure 187/82 H 145/48 H Blood Pressure [Left Arm] Blood Pressure Mean 117 80 Blood Pressure Mean [Left Arm] Blood Pressure Position Pulse Oximetry 97 99 93 Oxygen Delivery Method Room Air Room Air Room Air Sepsis Recent Fever Within 48 Hours Sepsis New/Unexplained Change in Mental Status Sepsis Action Taken by Nursing 10/05/21 10:00 10/05/21 10:44 10/05/21 11:00 Temperature Temperature Source Pulse Rate 61 63 60 Pulse Rate from SpO2 Sensor 60 60 Respiratory Rate 19 21 24 Blood Pressure 134/53 L 143/55 H Blood Pressure [Left Arm] Blood Pressure Mean 80 84 Blood Pressure Mean [Left Arm] Blood Pressure Position Pulse Oximetry 94 95 Oxygen Delivery Method Room Air Sepsis Recent Fever Within 48 Hours Sepsis New/Unexplained Change in Mental Status Sepsis Action Taken by Nursing 10/05/21 11:30 10/05/21 12:00 10/05/21 12:44 Temperature Temperature Source Pulse Rate 61 67 78 Pulse Rate from SpO2 Sensor 61 66 76 Respiratory Rate 17 22 25 H Blood Pressure 126/106 H 205/85 H Blood Pressure [Left Arm] 192/67 H Blood Pressure Mean 112 125 Blood Pressure Mean [Left Arm] 108 Blood Pressure Position Pulse Oximetry 97 96 94 Oxygen Delivery Method Room Air Sepsis Recent Fever Within 48 Hours Sepsis New/Unexplained Change in Mental Status Sepsis Action Taken by Nursing 10/05/21 13:00 10/05/21 13:30 10/05/21 14:00 Temperature Temperature Source Pulse Rate 69 69 65 Pulse Rate from SpO2 Sensor 68 69 65 Respiratory Rate Blood Pressure 192/67 H 183/77 H 169/69 H Blood Pressure [Left Arm] Blood Pressure Mean 108 112 102 Blood Pressure Mean [Left Arm] Blood Pressure Position Pulse Oximetry 93 94 94 Oxygen Delivery Method Sepsis Recent Fever Within 48 Hours Sepsis New/Unexplained Change in Mental Status Sepsis Action Taken by Care Home Medications Current Medication List: was personally reviewed by me Laboratory Data Attestation: I reviewed the patient's lab results. Result diagrams: 10/05/21 09:04 10/05/21 09:04 Lab Results 10/05/21 10/05/21 10/05/21 Range/Units 09:04 09:04 09:04 WBC 6.56 (4.8-10.8) K/uL RBC 3.62 L (4.2-5.4) M/uL Hgb 11.3 L (12.0-16.0) g/dL Hct 34.2 L (37-47) % MCV 94.5 (80-100) fL MCH 31.2 (25-34) pg MCHC 33.0 (32-36) g/dL RDW Std Deviation 47.0 H (36.4-46.3) fL RDW Coeff of Mohinder 13.7 (11.5-14.5) % Plt Count 196 (130-400) K/uL MPV 10.8 H (7.4-10.4) fL Immature Gran % (Auto) 0.5 % Neut % (Auto) 75.0 % Lymph % (Auto) 14.6 % [place] % (Auto) 5.9 % Eos % (Auto) 3.8 % Baso % (Auto) 0.2 % Neut # (Auto) 4.92 (1.4-6.5) K/uL Lymph # (Auto) 0.96 L (1.2-3.4) K/uL [place] # (Auto) 0.39 (0.11-0.59) K/uL Eos # (Auto) 0.25 (0-0.5) K/uL Baso # (Auto) 0.01 (0-0.2) K/uL Immature Gran # (Auto) 0.03 H (0.00-0.02) K/uL APTT 26.2 (21.0-31.0) Seconds PTT Ratio 1.0 Sodium 137 (136-145) mmol/L Potassium 4.1 (3.5-5.1) mmol/L Chloride 103 (98-107) mmol/L Carbon Dioxide 29 (21-32) mmol/L Anion Gap 5 (3-11) BUN 21 (6-23) mg/dl Creatinine 0.72 (0.6-1.2) mg/dl Est Cr Clr Drug Dosing Not Reportable Est GFR ( Amer) 93.6 ml/min Est GFR (Non-Af Amer) 80.8 ml/min BUN/Creatinine Ratio 29.2 H (10-20) Glucose 106 H (70-99(Fasting)) mg/dl Calcium 8.9 (8.5-10.1) mg/dl Total Bilirubin 1.3 H (0.2-1.0) mg/dl AST 22 (13-39) U/L ALT 23 (7-52) U/L Alkaline Phosphatase 52 (34-104) U/L Total Protein 6.2 (6.0-8.3) gm/dl Albumin 3.9 (3.4-5.0) gm/dl Globulin 2.3 L (2.5-4.0) gm/dl Albumin/Globulin Ratio 1.7 (0.9-2) SARS-CoV-2, RNA, NAAT (NEGATIVE) 10/05/21 Range/Units 11:55 WBC (4.8-10.8) K/uL RBC (4.2-5.4) M/uL Hgb (12.0-16.0) g/dL Hct (37-47) % MCV (80-100) fL MCH (25-34) pg MCHC (32-36) g/dL RDW Std Deviation (36.4-46.3) fL RDW Coeff of Mohinder (11.5-14.5) % Plt Count (130-400) K/uL MPV (7.4-10.4) fL Immature Gran % (Auto) % Neut % (Auto) % Lymph % (Auto) % [place] % (Auto) % Eos % (Auto) % Baso % (Auto) % Neut # (Auto) (1.4-6.5) K/uL Lymph # (Auto) (1.2-3.4) K/uL [place] # (Auto) (0.11-0.59) K/uL Eos # (Auto) (0-0.5) K/uL Baso # (Auto) (0-0.2) K/uL Immature Gran # (Auto) (0.00-0.02) K/uL APTT (21.0-31.0) Seconds PTT Ratio Sodium (136-145) mmol/L Potassium (3.5-5.1) mmol/L Chloride (98-107) mmol/L Carbon Dioxide (21-32) mmol/L Anion Gap (3-11) BUN (6-23) mg/dl Creatinine (0.6-1.2) mg/dl Est Cr Clr Drug Dosing Est GFR ( Amer) ml/min Est GFR (Non-Af Amer) ml/min BUN/Creatinine Ratio (10-20) Glucose (70-99(Fasting)) mg/dl Calcium (8.5-10.1) mg/dl Total Bilirubin (0.2-1.0) mg/dl AST (13-39) U/L ALT (7-52) U/L Alkaline Phosphatase (34-104) U/L Total Protein (6.0-8.3) gm/dl Albumin (3.4-5.0) gm/dl Globulin (2.5-4.0) gm/dl Albumin/Globulin Ratio (0.9-2) SARS-CoV-2, RNA, NAAT NEGATIVE (NEGATIVE) Administered Medications Heparin Sodium/Dextrose (Heparin Sodium/Dextrose) 25,000 units in 500 mls @ 24 mls/hr IV .[id number] [facility]; Protocol Stop: 11/04/21 11:59 Last Admin: 10/05/21 12:58 Dose: 1,200 units/hr, 24 mls/hr Documented by: [id number] Cosigned by: [id number] Discontinued Medications Ioversol (Optiray 320 125ml) 120 ml IV ONCE ONE Stop: 10/05/21 12:43 Last Admin: 10/05/21 12:42 Dose: 120 ml Documented by: [id number] Morphine Sulfate (Morphine Sulfate 4 Mg/Ml 1 Ml Carp\Vial) 4 mg IV NOW STA Stop: 10/05/21 09:01 Last Admin: 10/05/21 09:08 Dose: 4 mg Documented by: [id number] Imaging Data Radiologist's Impression: Chest X-Ray 10/05/21 09:00 XR chest 1V portable HISTORY: 76 years-old Female Hypertension acute hypertension with recent right knee replacement COMPARISON: Chest radiograph 04/27/2021 TECHNIQUE: Portable AP view of the chest FINDINGS: Cardiac silhouette is enlarged. Left subclavian pacer. Calcified granuloma of the right midlung. No pneumothorax, pleural effusion, airspace consolidation or overt pulmonary edema. Calcified right hilar lymph nodes. The bones of the chest appear grossly intact. Mild thoracolumbar sigmoidal scoliosis. IMPRESSION: No acute process. ACT 112: Negative or not required by law. The above report was generated using voice recognition software. It may contain grammatical, syntax or spelling errors. Electronically signed by: Avi Todd M.D. 10/05/2021 10:01 AM Knee X-Ray 10/05/21 09:00 XR knee RT 3V CLINICAL HISTORY: pain post TKA TECHNIQUE: 3 views of the right knee were obtained. Comparison: None available at the time of this dictation. FINDINGS: Patient is status post total knee arthroplasty. No hardware fracture or perihardware lucency is seen. Joint spaces are well-preserved. A small suprapatellar effusion is seen. No soft tissue abnormality is seen. IMPRESSION: Small suprapatellar effusion is seen. Status post total knee arthroplasty. ACT 112: Negative or not required by law. Electronically signed by: Kiel Irby M.D. 10/05/2021 10:06 AM Venous Doppler Study 10/05/21 09:00 US venous doppler LE RT HISTORY: 76 years-old Female leg pain, recent TKA acute pain of the right lower extremity COMPARISON: Right knee radiographs 10/05/2021 TECHNIQUE: Multiple real-time sonographic images of the right lower extremity deep venous structures were obtained assessing grayscale appearance, color and spectral flow. FINDINGS: Mild linear stranding within the proximal posterior tibial vein without occlusive thrombus. Occlusive/partially occlusive thrombi noted within the peroneal vein extending proximal to distal, likely acute. IMPRESSION: Right lower extremity DVT. ACT 112: Negative or not required by law. The above report was generated using voice recognition software. It may contain grammatical, syntax or spelling errors. Electronically signed by: Avi Todd M.D. 10/05/2021 10:58 AM Chest CTA 10/05/21 12:03 CT ANGIOGRAPHY OF THE CHEST, PULMONARY EMBOLUS PROTOCOL CLINICAL HISTORY: PE, post TKA with DVT COMPARISON STUDY: Chest radiograph October 05, 2021. TECHNIQUE: Following IV administration of 120 mL of Optiray, helical axial images of the chest were obtained utilizing the pulmonary embolus protocol. Maximal intensity projections and sagittal and coronal reformats were viewed on an independent 3D workstation. IV contrast was administered without complication. Automated exposure control was utilized for the study. A dose lowering technique was utilized adhering to the principles of ALARA. CT DOSE: 235.90 mGy.cm FINDINGS: Dual lead left subclavian pacemaker is in place. No pulmonary emboli are identified. There is no thoracic aortic dissection. Moderate cardiomegaly is noted. There is no pericardial effusion. No enlarged axillary, mediastinal or hilar lymph nodes are present. Trace bilateral pleural effusions are present. Subpleural lower lobe opacities reflect atelectasis. There is no consolidation to suggest pneumonia. Central airways are patent. No pneumothorax. There is a elongated 8 mm subpleural solid noncalcified left lower lobe nodule on image 98 of 278. There is a 4 mm left upper lobe nodule on image 220. Calcified granuloma within the right middle lobe is present. No acute fracture or suspicious lesion is identified within the visualized bony thorax. There are calcified granulomas within the spleen. IMPRESSION: 1. No pulmonary emboli identified. 2. Moderate cardiomegaly. 3. Trace bilateral pleural effusions. Subpleural opacities consistent with atelectasis. 4. Two low suspicion left lung nodules, as described above. A follow-up chest CT in 6 months to ensure stability is recommended. ACT 112: Negative or not required by law. Electronically signed by: Conrad Romero M.D. 10/05/2021 1:01 PM Discharge Plan Visit Data Chief Complaint: Hypertension Stated Complaint: KNEE PAIN, HIGH BLOOD PRESSURE ED Provider: Mil You Discharge Problem: Hypertension, Knee pain, DVT (deep venous thrombosis) Patient Disposition: Admitted As Inpatient Discharge Instructions Interventions: ED Discharge Assessment Last Done: 10/05/21 13:27 Forms Stand Alone Forms: My [facility] Prescriptions Prescriptions: No Action carvedilol 25 mg tablet 25 mg PO BID RF: 0 cholecalciferol (vitamin D3) [Vitamin D3] 5,000 unit Tablet 5,000 unit PO QAM RF: 0 cyanocobalamin (vitamin B-12) 5,000 mcg Tablet, Sublingual 5,000 mcg SUBLINGUAL QAM RF: 0 acetaminophen [Tylenol Extra Strength] 500 mg Tablet 1,000 mg PO Q8 14 Days Qty: 84 RF: 0 oxycodone 5 mg Tablet 5 mg PO Q4H MDD 6 PRN (Reason: pain) Qty: 30 RF: 0 sennosides [Senokot] 8.6 mg Tablet 8.6 mg PO DAILY PRN (Reason: Constipation) RF: 0 ondansetron 4 mg tablet,disintegrating 4 mg translingual Q6H PRN (Reason: Nausea And Vomiting) RF: 0 lisinopril 20 mg tablet 10 mg PO BID RF: 0 aspirin 81 mg tablet,delayed release (DR/EC) 81 mg PO QAM RF: 0 Referrals Referrals: Feliciano Mckeon PA-C [Primary Care Provider] -
[2021-10-05] MEDS ORDERED: MoRPHine SULFATE 4 MG/ML 1 ML CARP\\VIAL IV STA (09:00)
[2021-10-05 09:21] LABS: Basophils # (auto) 0.01 K/uL (0-0.2); Basophils % (auto) 0.2 %; Eosinophils # (auto) 0.25 K/uL (0-0.5); Eosinophils % (auto) 3.8 %; Hematocrit (blood only) 34.2 % (37-47); Hemoglobin 11.3 g/dL (12.0-16.0); Immature Granulocytes # (auto) 0.03 K/uL (0.00-0.02); Immature Granulocytes % (auto) 0.5 %; Lymphocytes # (auto) 0.96 K/uL (1.2-3.4); Lymphocytes % (auto) 14.6 %; Mean Corpuscular Hemoglobin 31.2 pg (25-34); Mean Corpuscular Volume 94.5 fL (80-100); Mean Platelet Volume 10.8 fL (7.4-10.4); Monocytes # (auto) 0.39 K/uL (0.11-0.59); Monocytes % (auto) 5.9 %; Neutrophils # (auto) 4.92 K/uL (1.4-6.5); Platelet Count 196 K/uL (130-400); RDW Coefficient of Variation 13.7 % (11.5-14.5); Red Blood Count 3.62 M/uL (4.2-5.4); White Blood Count 6.56 K/uL (4.8-10.8)
[2021-10-05 09:45] LABS: Alanine Aminotransferase 23 U/L (7-52); Albumin Globulin Ratio 1.7 (0.9-2); Albumin Level 3.9 gm/dl (3.4-5.0); Alkaline Phosphatase 52 U/L (34-104); Anion Gap 5 (3-11); Aspartate Aminotransferase 22 U/L (13-39); BUN Creatinine Ratio 29.2 (10-20); Bilirubin,Total 1.3 mg/dl (0.2-1.0); Blood Urea Nitrogen 21 mg/dl (6-23); Calcium 8.9 mg/dl (8.5-10.1); Carbon Dioxide 29 mmol/L (21-32); Chloride 103 mmol/L (98-107); Est GFR (African American) 93.6 ml/min; Est GFR (Non-African American) 80.8 ml/min; Globulin 2.3 gm/dl (2.5-4.0); Glucose 106 mg/dl (70-99(Fasting)); Potassium 4.1 mmol/L (3.5-5.1); Sodium 137 mmol/L (136-145); Total Protein 6.2 gm/dl (6.0-8.3)
--- NOTE | 2021-10-05 10:02 | XRay Report ---
XR chest 1V portable HISTORY: 76 years-old Female Hypertension acute hypertension with recent right knee replacement COMPARISON: Chest radiograph 04/27/2021 TECHNIQUE: Portable AP view of the chest FINDINGS: Cardiac silhouette is enlarged. Left subclavian pacer. Calcified granuloma of the right midlung. No p neumothorax, pleural effusion, airspace consolidation or overt pulmonary edema. Calcified right hilar lymph nodes. The bones of the chest appear grossly intact. Mild thoracolumbar sigmoidal scoliosis. IMPRESSION: No acute process. ACT 112: Negative or not required by law. The above report was generated using voice recognition software. It may contain grammatical, syntax o r spelling errors. Electronically signed by: Avi Todd M.D. 10/05/2021 10:01 AM
--- NOTE | 2021-10-05 10:07 | XRay Report ---
XR knee RT 3V CLINICAL HISTORY: pain post TKA TECHNIQUE: 3 views of the right knee were obtained. Comparison: None available at the time of this dictation. FINDINGS: Patient is status post total knee arthroplasty. No hardware fracture or perihardware lucency is seen. Joint spaces are well-preserved. A small suprapatellar effusion is seen. No soft tissue abnormality is seen. IMPRESSION: Small suprapatellar effusion is seen. Status post total knee arthroplasty. ACT 112: Negative or not required by law. Electronically signed by: Kiel Irby M.D. 10/05/2021 10:06 AM
--- NOTE | 2021-10-05 11:00 | Ultrasound Report ---
US venous doppler LE RT HISTORY: 76 years-old Female leg pain, recent TKA acute pain of the right lower extremity COMPARISON: Right knee radiographs 10/05/2021 TECHNIQUE: Multiple real-time sonographic images of the right lower extremity deep venous structures were obtained assessing grayscale appearance, color and spectral flow. FINDINGS: Mild linear stranding within the proximal posterior tibial vein without occlusive thrombus. Occlusive /partially occlusive thrombi noted within the peroneal vein extending proximal to distal, likely acut e. IMPRESSION: Right lower extremity DVT. ACT 112: Negative or not required by law. The above report was generated using voice recognition software. It may contain grammatical, syntax o r spelling errors. Electronically signed by: Avi Todd M.D. 10/05/2021 10:58 AM
[2021-10-05] MEDS ORDERED: Heparin IV Adult Wt-Based Standard *NO* Bolus Protocol IV ONE (11:45)
--- NOTE | 2021-10-05 12:31 | History & Physical Report ---
Date of Service October 05, 2021 Assessment & Plan (1) DVT of lower extremity (deep venous thrombosis): Plan: Acute DVT of the right lower extremity following TKA on 09/29/21 - Peroneal vein with stranding in the popliteal- Heparin infusion low dose no bolus - follow for any hematoma/bleeding - transition to VKA or DOAC when applicable - Continue with asa - CTA of chest r/o PE for symptomatology of dyspnea and treatment prognostication- Negative for PE (2) Primary osteoarthritis of right knee: Plan: History of - had TKA on the left and is s/p TKA on the right - Continue with multimodal pain control with home regime - PT/OT consult placed- continue rehab goals while in house - Orthopaedics aware of admission - EMD spoke with orthopaedics PAC (3) Hypertension: Plan: Well controlled - Lisinopril- was previously 10mg BID - dose reduced on last admission to once daily- follow - Continue with Carvedilol 25mg BID (4) GERD (gastroesophageal reflux disease): Plan: Not on therapy at home- asymptomatic per patient at this time - follow no current indication for PPI initiation (5) Pacemaker: Plan: Dual chamber- placed 2018 for complete HB - Mode- DDDR low rate 60 upper track rate of 130 - AT/AF pacing at 170 - VT >150 (6) Incidental lung nodule, greater than or equal to 8mm: Plan: Incidentally noted on CTA of the chest- 8mm elongated subpleural left lower lobe. 4mm left upper lobe - consult to lung nodule program for follow up placed History of Present Illness Primary Care Provider: Feliciano Mckeon 76 YOF with past medical history of: Complete heart block(with Pacemaker 2018), HTN, HLD, Bilateral TKA, Osteoarthritis, GERD, RLS. Patient is s/p TKA completed on 09/29/21- she was discharged on 09/30/21 and ASA for DVT prophylaxis. She was at home completing her in house rehab and recovery. She endorses that she was feeling well and doing well up until yesterday afternoon where she had an increase in her right lower leg pain around the knee and down her calf. She had difficulty walking and noted increase swelling through this morning. She has been wearing her compression stockings as well. She came to the EMD, she had routine labs done and ultrasound of the right lower extremity- this was int erpreted as occlusive/partially occlusive thrombi within the peroneal vein with stranding in the proximal posterior tibial vein without thrombus. She was started on Heparin infusion in the EMD for this. Will obtain CTA of the chest as she has felt more dyspneic over the past 24 hours but without chest pain or tachycardia. Will admit and follow her for any bleeding or hematoma around her surgical site. She will continue on heparin infusion low dose protocol without bolus. Allergies Allergy/AdvReac Type Severity Reaction Status Date / Time clindamycin AdvReac Unknown nausea and Verified 10/10/21 21:41 vomiting Home Medications Medication Instructions Recorded Confirmed Type carvedilol 25 mg tablet 25 mg PO BID 12/10/18 10/10/21 History cholecalciferol (vitamin D3) 125 5,000 unit PO QAM 12/10/18 10/10/21 History mcg (5,000 unit) tablet (Vitamin D3) cyanocobalamin (vitamin B-12) 5,000 mcg SUBLINGUAL QAM 12/10/18 10/10/21 History 5,000 mcg sublingual tablet oxycodone 5 mg tablet 5 mg PO Q4H PRN #30 tab MDD 6 09/30/21 10/10/21 Rx aspirin 81 mg tablet,delayed 81 mg PO QAM 10/05/21 10/10/21 History release lisinopril 20 mg tablet 10 mg PO BID 10/05/21 10/10/21 History ondansetron 4 mg disintegrating 4 mg TRANSLINGUAL Q6H PRN 10/05/21 10/10/21 History tablet sennosides 8.6 mg tablet (Senokot) 8.6 mg PO DAILY PRN 10/05/21 10/10/21 History apixaban 5 mg (74 tabs) tablets in 5 mg PO BID #74 ea 10/06/21 10/10/21 Rx a dose pack (Eliquis) acetaminophen 500 mg tablet 1,000 mg PO Q8 PRN 10/10/21 10/10/21 History (Tylenol Extra Strength) cefdinir 300 mg capsule 300 mg PO BID 10/10/21 10/10/21 History tramadol 50 mg tablet (Ultram) 50 mg PO Q6H PRN #30 tab 10/10/21 Rx Past Med/Surg History Medical History Borderline high cholesterol Bradycardia Complete heart block S/p pacemaker placement 2018 ([employer]) MOST RECENT CHECK LESS THAN A MONTH AGO Depression UNDER CONTROL Diverticulitis GERD (gastroesophageal reflux disease) Hypertension Paroxysmal atrial tachycardia No recent palpitations Restless leg SOB (shortness of breath) on exertion Chronic/gradual- stable Surgical History History of colonoscopy History of esophagogastroduodenoscopy (EGD) History of loop recorder PLACED AND REMOVED-05/2018 History of total knee replacement LEFT Pacemaker PLACED 05/2018 Status post hernia repair X 2 Family History Brother Family history of diabetes mellitus Sister Family history of diabetes mellitus Father , age 59 Myocardial infarction Mother , age 60; in her sleep No problems noted. 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 [place] How many Children do You have: 2 Feels Safe at Home: Yes Assistive Devices: Cane and Walker Review of Systems Review of Systems: REVIEW OF SYSTEMS: Constitutional: No fever, sweats or chills Eyes: No diplopia, no worsening or blurred vision ENT: normal hearing, no trouble swallowing Respiratory: (+) dyspnea, No cough, sputum, Cardiovascular: No chest pain, tightness or palpitations Abdomen: No pain, nausea, vomiting, diarrhea or constipation Musculoskeletal: (+) calf and knee pain, swelling Neurologic: No weakness, numbness/tingling, or balance problems Psychiatric: No anxiety or depression Skin: No rash or itch Physical Exam Physical Exam: PHYSICAL EXAM: General: awake, alert, no apparent distress Head: Normocephalic, atraumatic ENT: PERRLA, EOMI, no pharyngeal exudate, mucous membranes moist Neuro: AAO x 3, speech clear and appropriate, strength intact bilaterally 5/5, sensation intact and equal all extremities and dermatomes, no pronator drift Chest: equal rise and fall of the chest, no accessory muscle use, no heaves or thrills, Clear to auscultation, on room air, Cardiac: Regular rate and rhythm, telemetry reviewed- Vpaced, skin warm dry, cap refill <3 seconds, peripheral pulses +2 no JVD, no murmur, trace edema to her right lower extremity GI: NABS x 4 quadrants, soft, nontender to palpation, no rebound, guarding or tenderness : Spontaneously voiding, no pain, no CVA tenderness, Extremities: Normal inspection, no peripheral edema or erythema, calfs nontender to palpation Psych: Normal mood and affect Skin: bruising to her right leg postoperative, no hematoma, dressing intact Results & Data Results & Data ([facility]) Vital Signs (Past 12 Hours) Vital Signs Temp Pulse Resp BP Pulse Ox 10/05/21 10:00 61 19 134/53 L 94 10/05/21 09:30 64 21 145/48 H 93 10/05/21 09:27 99 10/05/21 09:00 68 22 187/82 H 97 10/05/21 08:54 70 18 193/63 H 98 10/05/21 08:49 66 22 95 10/05/21 08:33 36.6 C 66 18 183/70 H 97 Laboratory Results Abnormal lab results 10/05/21 10/05/21 Range/Units 09:04 09:04 RBC 3.62 L (4.2-5.4) M/uL Hgb 11.3 L (12.0-16.0) g/dL Hct 34.2 L (37-47) % RDW Std Deviation 47.0 H (36.4-46.3) fL MPV 10.8 H (7.4-10.4) fL Lymph # (Auto) 0.96 L (1.2-3.4) K/uL Immature Gran # (Auto) 0.03 H (0.00-0.02) K/uL BUN/Creatinine Ratio 29.2 H (10-20) Glucose 106 H (70-99(Fasting)) mg/dl Total Bilirubin 1.3 H (0.2-1.0) mg/dl Globulin 2.3 L (2.5-4.0) gm/dl Diagnostic Findings Chest X-Ray 10/05/21 09:00 XR chest 1V portable HISTORY: 76 years-old Female Hypertension acute hypertension with recent right knee replacement COMPARISON: Chest radiograph 04/27/2021 TECHNIQUE: Portable AP view of the chest FINDINGS: Cardiac silhouette is enlarged. Left subclavian pacer. Calcified granuloma of the right midlung. No pneumothorax, pleural effusion, airspace consolidation or overt pulmonary edema. Calcified right hilar lymph nodes. The bones of the chest appear grossly intact. Mild thoracolumbar sigmoidal scoliosis. IMPRESSION: No acute process. ACT 112: Negative or not required by law. The above report was generated using voice recognition software. It may contain grammatical, syntax or spelling errors. Electronically signed by: Avi Todd M.D. 10/05/2021 10:01 AM Knee X-Ray 10/05/21 09:00 XR knee RT 3V CLINICAL HISTORY: pain post TKA TECHNIQUE: 3 views of the right knee were obtained. Comparison: None available at the time of this dictation. FINDINGS: Patient is status post total knee arthroplasty. No hardware fracture or perihardware lucency is seen. Joint spaces are well-preserved. A small suprapatellar effusion is seen. No soft tissue abnormality is seen. IMPRESSION: Small suprapatellar effusion is seen. Status post total knee arthroplasty. ACT 112: Negative or not required by law. Electronically signed by: Kiel Irby M.D. 10/05/2021 10:06 AM Venous Doppler Study 10/05/21 09:00 US venous doppler LE RT HISTORY: 76 years-old Female leg pain, recent TKA acute pain of the right lower extremity COMPARISON: Right knee radiographs 10/05/2021 TECHNIQUE: Multiple real-time sonographic images of the right lower extremity deep venous structures were obtained assessing grayscale appearance, color and spectral flow. FINDINGS: Mild linear stranding within the proximal posterior tibial vein without occlusive thrombus. Occlusive/partially occlusive thrombi noted within the peroneal vein extending proximal to distal, likely acute. IMPRESSION: Right lower extremity DVT. ACT 112: Negative or not required by law. The above report was generated using voice recognition software. It may contain grammatical, syntax or spelling errors. Electronically signed by: Avi Todd M.D. 10/05/2021 10:[address] ANGIOGRAPHY OF THE CHEST, PULMONARY EMBOLUS PROTOCOL CLINICAL HISTORY: PE, post TKA with DVT COMPARISON STUDY: Chest radiograph October 05, 2021. TECHNIQUE: Following IV administration of 120 mL of Optiray, helical axial images of the chest were obtained utilizing the pulmonary embolus protocol. Maximal intensity projections and sagittal and coronal reformats were viewed on an independent 3D workstation. IV contrast was administered without complication. Automated exposure control was utilized for the study. A dose lowering technique was utilized adhering to the principles of ALARA. CT DOSE: 235.90 mGy.cm FINDINGS: Dual lead left subclavian pacemaker is in place. No pulmonary emboli are identified. There is no thoracic aortic dissection. Moderate cardiomegaly is noted. There is no pericardial effusion. No enlarged axillary, mediastinal or hilar lymph nodes are present. Trace bilateral pleural effusions are present. Subpleural lower lobe opacities reflect atelectasis. There is no consolidation to suggest pneumonia. Central airways are patent. No pneumothorax. There is a elongated 8 mm subpleural solid noncalcified left lower lobe nodule on image 98 of 278. There is a 4 mm left upper lobe nodule on image 220. Calcified granuloma within the right middle lobe is present. No acute fracture or suspicious lesion is identified within the visualized bony thorax. There are calcified granulomas within the spleen. IMPRESSION: 1. No pulmonary emboli identified. 2. Moderate cardiomegaly. 3. Trace bilateral pleural effusions. Subpleural opacities consistent with atelectasis. 4. Two low suspicion left lung nodules, as described above. A follow-up chest CT in 6 months to ensure stability is recommended. Medications Administered Home Medications carvedilol 25 mg tablet 25 mg PO BID 12/10/18 [History Confirmed 10/05/21] cholecalciferol (vitamin D3) 125 mcg (5,000 unit) tablet (Vitamin D3) 5,000 unit PO QAM 12/10/18 [History Confirmed 10/05/21] cyanocobalamin (vitamin B-12) 5,000 mcg sublingual tablet 5,000 mcg SUBLINGUAL QAM 12/10/18 [History Confirmed 10/05/21] acetaminophen 500 mg tablet (Tylenol Extra Strength) 1,000 mg PO Q8 14 Days #84 tab 09/30/21 [Rx Confirmed 10/05/21] oxycodone 5 mg tablet 5 mg PO Q4H PRN #30 tab MDD 6 09/30/21 [Rx Confirmed 10/05/21] aspirin 81 mg tablet,delayed release 81 mg PO QAM 10/05/21 [History Confirmed 10/05/21] lisinopril 20 mg tablet 10 mg PO BID 10/05/21 [History Confirmed 10/05/21] ondansetron 4 mg disintegrating tablet 4 mg TRANSLINGUAL Q6H PRN 10/05/21 [History Confirmed 10/05/21] sennosides 8.6 mg tablet (Senokot) 8.6 mg PO DAILY PRN 10/05/21 [History Confirmed 10/05/21] Active Medications Heparin Sodium/Dextrose (Heparin Sodium/Dextrose) 25,000 units in 500 mls @ 24 mls/hr IV .[id number] [facility]; Protocol Stop: 11/04/21 11:59 ECG Additional Comments: Atrial-sensed ventricular-paced rhythm with prolonged AV conduction Abnormal ECG When compared with ECG of 27-APR-2021 13:37, Vent. rate has decreased BY 5 BPM Code Status & VTE Plan Code Status CODE: FULL VTE: SCDS, Heparin infusion for DVT VTE Prophylaxis Plan VTE Prophylaxis will be ordered: Yes Supervising Physician Co-Signing Physician Notes Attending addendum: I have physically seen this patient, have supervised the JACOBO's activities, and agree with the H&P unless as otherwise noted. Assessment and Plan: Right lower extremity DVT- TKA on 09/29/2021 Heparin IV low-dose no bolus per protocol Continue aspirin CTA chest PE protocol negative for PE Status post right TKA- Orthopedic surgery Hypertension/status post pacer Continue lisinopril and carvedilol with hold parameters Lung nodule program consult as noted Remaining orders and notations as noted PG Care Time/CCT Total # of Minutes Spent Total Time Spent with Patient: Total time spent is greater than 50% in coordination of care (as documented) at patient's floor/unit and/or counseling patient: Coding Level of Care Code 02502 Initial Inpt Care Lvl 3 Diagnoses DVT of lower extremity (deep venous thrombosis) I82.409 Hypertension I10 Hypertension type: unspecified Primary osteoarthritis of right knee M17.11 GERD (gastroesophageal reflux disease) K21.9 Pacemaker Z95.0 Incidental lung nodule, greater than or equal to 8mm R91.1 (1) Hypertension Hypertension type: unspecified Qualified Code(s): I10 - Essential (primary) hypertension
[2021-10-05] MEDS ORDERED: OPTIRAY 320 125ml IV ONE (12:42)
[2021-10-05 12:44] LABS: Partial Thromboplastin Time 26.2 Seconds (21.0-31.0)
[2021-10-05] MEDS: HEPARIN SODIUM/DEXTROSE 25,000 UNITS/500 ML BAG IV SCH (12:58)
--- NOTE | 2021-10-05 13:02 | CT Scan Report ---
CT ANGIOGRAPHY OF THE CHEST, PULMONARY EMBOLUS PROTOCOL CLINICAL HISTORY: PE, post TKA with DVT COMPARISON STUDY: Chest radiograph October 05, 2021. TECHNIQUE: Following IV administration of 120 mL of Optiray, helical axial images of the chest were o btained utilizing the pulmonary embolus protocol. Maximal intensity projections and sagittal and cor onal reformats were viewed on an independent 3D workstation. IV contrast was administered without co mplication. Automated exposure control was utilized for the study. A dose lowering technique was ut ilized adhering to the principles of ALARA. CT DOSE: 235.90 mGy.cm FINDINGS: Dual lead left subclavian pacemaker is in place. No pulmonary emboli are identified. There is no thoracic aortic dissection. Moderate cardiomegaly is noted. There is no pericardial effusion. No enlarged axillary, mediastinal or hilar lymph nodes are present. Trace bilateral pleural effusions are present. Subpleural lower lobe opacities reflect atelectasis. There is no consolidation to sugge st pneumonia. Central airways are patent. No pneumothorax. There is a elongated 8 mm subpleural solid noncalcified left lower lobe nodule on image 98 of 278. There is a 4 mm left upper lobe nodule on im age 220. Calcified granuloma within the right middle lobe is present. No acute fracture or suspicious lesion is identified within the visualized bony thorax. There are calcified granulomas within the sp christina. IMPRESSION: 1. No pulmonary emboli identified. 2. Moderate cardiomegaly. 3. Trace bilateral pleural effusions. Subpleural opacities consistent with atelectasis. 4. Two low suspicion left lung nodules, as described above. A follow-up chest CT in 6 months to ensur e stability is recommended. ACT 112: Negative or not required by law. Electronically signed by: Conrad Romero M.D. 10/05/2021 1:01 PM
--- NOTE | 2021-10-05 14:21 | Electrocardiogram Report ---
Test Reason : Blood Pressure : / mmHG Vent. Rate : 063 BPM Atrial Rate : 063 BPM P-R Int : 214 ms QRS Dur : 178 ms QT Int : 472 ms P-R-T Axes : 028 -68 093 degrees QTc Int : 483 ms Atrial-sensed ventricular-paced rhythm with prolonged AV conduction Abnormal ECG When compared with ECG of 27-APR-2021 13:37, Vent. rate has decreased BY 5 BPM Confirmed by Jayant Parkinson ([id number]) on 10/05/2021 2:21:07 PM Referred By: REFERRED SELF Confirmed By:Alirio Parkinson
[2021-10-05] MEDS ORDERED: POLYETHYLENE (MIRALAX) 17 GM PACK PO PRN (16:54)
[2021-10-05] MEDS ORDERED: SENNA 8.6 MG TAB PO PRN (16:54)
[2021-10-05] MEDS ORDERED: ONDANSETRON 4 MG OD TAB SL PRN (16:54)
[2021-10-05] MEDS ORDERED: ACETAMINOPHEN 500 MG TAB PO SCH (17:30)
[2021-10-05] MEDS: oxyCODONE HCL IR 5 MG TAB (IMMEDIATE RELEASE) PO PRN ×2 (17:34→23:26)
[2021-10-05 18:14] LABS: Partial Thromboplastin Ratio 2.3
[2021-10-05 18:15] LABS: Partial Thromboplastin Time 63.4 Seconds (21.0-31.0)
[2021-10-05] MEDS ORDERED: lisinopril 10 MG TAB PO ONE (19:56)
[2021-10-05] MEDS: carvediloL 25 MG TAB PO SCH (20:09)
[2021-10-05] MEDS: lisinopril 10 MG TAB PO SCH (20:10)
[2021-10-05] MEDS: ACETAMINOPHEN 500 MG TAB PO SCH (20:10)
[2021-10-06] MEDS: ACETAMINOPHEN 500 MG TAB PO SCH ×2 (03:39→12:35)
[2021-10-06 06:57] LABS: Basophils # (auto) 0.01 K/uL (0-0.2); Basophils % (auto) 0.2 %; Eosinophils # (auto) 0.33 K/uL (0-0.5); Eosinophils % (auto) 5.6 %; Hematocrit (blood only) 34.1 % (37-47); Hemoglobin 11.5 g/dL (12.0-16.0); Immature Granulocytes # (auto) 0.03 K/uL (0.00-0.02); Immature Granulocytes % (auto) 0.5 %; Lymphocytes # (auto) 1.35 K/uL (1.2-3.4); Mean Corpuscular Hemoglobin 31.3 pg (25-34); Mean Corpuscular Hgb Conc 33.7 g/dL (32-36); Mean Corpuscular Volume 92.9 fL (80-100); Mean Platelet Volume 10.6 fL (7.4-10.4); Monocytes # (auto) 0.52 K/uL (0.11-0.59); Monocytes % (auto) 8.9 %; Neutrophils # (auto) 3.63 K/uL (1.4-6.5); Neutrophils % (auto) 61.8 %; Platelet Count 197 K/uL (130-400); RDW Coefficient of Variation 13.8 % (11.5-14.5); RDW Standard Deviation 46.1 fL (36.4-46.3); Red Blood Count 3.67 M/uL (4.2-5.4); White Blood Count 5.87 K/uL (4.8-10.8)
[2021-10-06 07:17] LABS: BUN Creatinine Ratio 27.6 (10-20); Calcium 8.8 mg/dl (8.5-10.1); Est GFR (Non-African American) 88.9 ml/min; Magnesium 1.9 mg/dl (1.7-2.4)
[2021-10-06 08:16] LABS: Partial Thromboplastin Ratio 4.9
[2021-10-06 08:21] LABS: Partial Thromboplastin Time 134.6 Seconds (21.0-31.0)
[2021-10-06] MEDS: carvediloL 25 MG TAB PO SCH (08:36)
[2021-10-06] MEDS: lisinopril 10 MG TAB PO SCH (08:36)
[2021-10-06] MEDS ORDERED: ASPIRIN 81 MG ECTAB PO SCH (09:00)
[2021-10-06] MEDS ORDERED: CHOLECALCIFEROL 5,000 UNITS 125 MCG TAB PO SCH (09:00)
[2021-10-06] MEDS ORDERED: CYANOCOBALAMIN (B-12) 2,500 MCG TABLET SL SCH (09:00)
[2021-10-06] MEDS: oxyCODONE HCL IR 5 MG TAB (IMMEDIATE RELEASE) PO PRN (09:40)
[2021-10-06] MEDS: HEPARIN SODIUM/DEXTROSE 25,000 UNITS/500 ML BAG IV SCH (10:32)
[2021-10-06] MEDS ORDERED: APIXABAN 5 MG TABLET PO SCH ×2 (11:15)
--- NOTE | 2021-10-06 11:17 | Discharge Summary ---
Date of Service October 06, 2021 Admission HPI Per Admitting Provider 76 YOF with past medical history of: Complete heart block(with Pacemaker 2018), HTN, HLD, Bilateral TKA, Osteoarthritis, GERD, RLS. Patient is s/p TKA completed on 09/29/21- she was discharged on 09/30/21 and ASA for DVT prophylaxis. She was at home completing her in house rehab and recovery. She endorses that she was feeling well and doing well up until yesterday afternoon where she had an increase in her right lower leg pain around the knee and down her calf. She had difficulty walking and noted increase swelling through this morning. She has been wearing her compression stockings as well. She came to the EMD, she had routine labs done and ultrasound of the right lower extremity- this was interpreted as occlusive/partially occlusive thrombi within the peroneal vein with stranding in the proximal posterior tibial vein without thrombus. She was started on Heparin infusion in the EMD for this. Will obtain CTA of the chest as she has felt more dyspneic over the past 24 hours but without chest pain or tachycardia. Will admit and follow her for any bleeding or hematoma around her surgical site. She will continue on heparin infusion low dose protocol without bolus. Principal Diagnosis Acute DVT RLE s/p elective TKA Discharge Exam GENERAL: 76 yo well-developed, well-nourished elderly WF. NAD. LUNGS: Clear to auscultation bilaterally. No accessory muscle use. No W/R/R. CARDIOVASCULAR: Regular rate and rhythm. 2/6 SHAHZAD. ABDOMEN: Soft, non-tender and non-distended. BS normal x 4 quad. EXTREMITIES: No edema. Non-tender. Peripheral pulses +2/4. NEUROLOGIC: A&O x3. PSYCHIATRIC: Cooperative. Appropriate mood and affect. SKIN: Warm, dry, intact. No rashes or lesions. Discharge Data Allergies Allergy/AdvReac Type Severity Reaction Status Date / Time clindamycin AdvReac Unknown nausea and Verified 10/05/21 10:33 vomiting Consultations 10/05/21 11:56 ED Decision to Admit Stat 10/05/21 16:54 Consult Lung Nodule Program Routine Ordered Studies Chest X-Ray 10/05/21 09:00 XR chest 1V portable HISTORY: 76 years-old Female Hypertension acute hypertension with recent right knee replacement COMPARISON: Chest radiograph 04/27/2021 TECHNIQUE: Portable AP view of the chest FINDINGS: Cardiac silhouette is enlarged. Left subclavian pacer. Calcified granuloma of the right midlung. No pneumothorax, pleural effusion, airspace consolidation or overt pulmonary edema. Calcified right hilar lymph nodes. The bones of the chest appear grossly intact. Mild thoracolumbar sigmoidal scoliosis. IMPRESSION: No acute process. ACT 112: Negative or not required by law. The above report was generated using voice recognition software. It may contain grammatical, syntax or spelling errors. Electronically signed by: Avi Todd M.D. 10/05/2021 10:01 AM Knee X-Ray 10/05/21 09:00 XR knee RT 3V CLINICAL HISTORY: pain post TKA TECHNIQUE: 3 views of the right knee were obtained. Comparison: None available at the time of this dictation. FINDINGS: Patient is status post total knee arthroplasty. No hardware fracture or perihardware lucency is seen. Joint spaces are well-preserved. A small suprapatellar effusion is seen. No soft tissue abnormality is seen. IMPRESSION: Small suprapatellar effusion is seen. Status post total knee arthroplasty. ACT 112: Negative or not required by law. Electronically signed by: Kiel Irby M.D. 10/05/2021 10:06 AM Venous Doppler Study 10/05/21 09:00 US venous doppler LE RT HISTORY: 76 years-old Female leg pain, recent TKA acute pain of the right lower extremity COMPARISON: Right knee radiographs 10/05/2021 TECHNIQUE: Multiple real-time sonographic images of the right lower extremity deep venous structures were obtained assessing grayscale appearance, color and spectral flow. FINDINGS: Mild linear stranding within the proximal posterior tibial vein without occlusive thrombus. Occlusive/partially occlusive thrombi noted within the peroneal vein extending proximal to distal, likely acute. IMPRESSION: Right lower extremity DVT. ACT 112: Negative or not required by law. The above report was generated using voice recognition software. It may contain grammatical, syntax or spelling errors. Electronically signed by: Avi Todd M.D. 10/05/2021 10:58 AM Chest CTA 10/05/21 12:03 CT ANGIOGRAPHY OF THE CHEST, PULMONARY EMBOLUS PROTOCOL CLINICAL HISTORY: PE, post TKA with DVT COMPARISON STUDY: Chest radiograph October 05, 2021. TECHNIQUE: Following IV administration of 120 mL of Optiray, helical axial images of the chest were obtained utilizing the pulmonary embolus protocol. Maximal intensity projections and sagittal and coronal reformats were viewed on an independent 3D workstation. IV contrast was administered without complication. Automated exposure control was utilized for the study. A dose lowering technique was utilized adhering to the principles of ALARA. CT DOSE: 235.90 mGy.cm FINDINGS: Dual lead left subclavian pacemaker is in place. No pulmonary emboli are identified. There is no thoracic aortic dissection. Moderate cardiomegaly is noted. There is no pericardial effusion. No enlarged axillary, mediastinal or hilar lymph nodes are present. Trace bilateral pleural effusions are present. Subpleural lower lobe opacities reflect atelectasis. There is no consolidation to suggest pneumonia. Central airways are patent. No pneumothorax. There is a elongated 8 mm subpleural solid noncalcified left lower lobe nodule on image 98 of 278. There is a 4 mm left upper lobe nodule on image 220. Calcified granuloma within the right middle lobe is present. No acute fracture or suspicious lesion is identified within the visualized bony thorax. There are calcified granulomas within the spleen. IMPRESSION: 1. No pulmonary emboli identified. 2. Moderate cardiomegaly. 3. Trace bilateral pleural effusions. Subpleural opacities consistent with atelectasis. 4. Two low suspicion left lung nodules, as described above. A follow-up chest CT in 6 months to ensure stability is recommended. ACT 112: Negative or not required by law. Electronically signed by: Conrad Romero M.D. 10/05/2021 1:01 PM Hospital Course (1) DVT of lower extremity (deep venous thrombosis): Acute DVT of the right lower extremity following TKA on 09/29/21 - Peroneal vein with stranding in the popliteal- Heparin infusion low dose no bolus initiated by admitting team - Continue with asa - CTA of chest r/o PE was negative - Provoked DVT in setting of recent TKA, stop heparin gtt, start DOAC, d/c home today (2) Primary osteoarthritis of right knee: History of - had TKA on the left and is s/p TKA on the right - Continue with multimodal pain control with home regimen - PT/OT consult placed- continue rehab goals while in house - Orthopedics aware of admission - EMD spoke with orthopedics PAC, Dr. Cordon to see prior to pt d/c (3) Hypertension: Well controlled - Lisinopril- was previously 10mg BID - dose reduced on last admission to once daily- follow - Continue with Carvedilol 25mg BID (4) GERD (gastroesophageal reflux disease): Not on therapy at home- asymptomatic per patient at this time - follow no current indication for PPI initiation (5) Pacemaker: Dual chamber- placed 2017 for complete HB - Mode- DDDR low rate 60 upper track rate of 130 - AT/AF pacing at 170 - VT >150 (6) Incidental lung nodule, greater than or equal to 8mm: Incidentally noted on CTA of the chest- 8mm elongated subpleural left lower lobe. 4mm left upper lobe - consult to lung nodule program for follow up placed - recommending CT in 6 months to reassess, at PCP discretion At this time, pt is doing well. Her pain is adequately controlled. She can be transitioned to DOAC. She will follow up with orthopedics as directed. Resume home PT/OT. Advised pcp follow up within 7-10 days. Above plan of care has been d/w Dr. Saldaña who has also seen and evaluated this patient prior to discharge. Total Time Total Time Spent Total Time Spent (In Minutes): >30 minutes Discharge Plan Discharge Items Patient Disposition: Home - Home Health Services Reason For Visit: DVT S/P TKA 09/30/21 Discharge Diagnosis: Blood clot in right lower leg after knee replacement Activity: Resume your previous activity Non-emergency contact: Primary Care Provider and Surgeon Call non-emergency contact if: you have any medication questions Follow-up/Referrals: Feliciano Mckeon PA-C [Primary Care Provider] - Diet: Regular Addtl Attending Provider Instructions: You were hospitalized due to complaints of right lower extremity swelling and pain of which your work up found that you have a blood clot. This would be considered a "provoked" blood clot due to your recent knee replacement. You will be sent home on a medication called Eliquis which is a blood thinner. Generally, medication is continued for a range of 3 to 6 months. It will be at the discretion of your family doctor to decide how long to continue your blood thinner. Incidentally, you were found to have lung nodules (in the left lung) on the CT scan that was done on your chest. It is recommended that you have a repeat CT scan done in 6 months. This can be arranged/ordered by your primary care provider. We advise you to follow up with your orthopedic surgeon in the office as scheduled. We also recommend that you follow up with your family doctor within 7-10 days of discharge from the hospital. Home physical and occupational therapy will resume upon your return home. Please contact the nonemergency number in the event that you have any questions. In the event of a medical emergency, call 911. Pending Studies at Discharge: No Stand-Alone Forms: My [facility] [employer], Smoking Cessation Medications and DC Order Prescriptions: New Eliquis 5 mg (74 tabs) tablets,dose pack 5 mg PO BID Qty: 74 RF: 0 Continued carvedilol 25 mg tablet 25 mg PO BID RF: 0 cholecalciferol (vitamin D3) [Vitamin D3] 5,000 unit Tablet 5,000 unit PO QAM RF: 0 cyanocobalamin (vitamin B-12) 5,000 mcg Tablet, Sublingual 5,000 mcg SUBLINGUAL QAM RF: 0 acetaminophen [Tylenol Extra Strength] 500 mg Tablet 1,000 mg PO Q8 14 Days Qty: 84 RF: 0 oxycodone 5 mg Tablet 5 mg PO Q4H MDD 6 PRN (Reason: pain) Qty: 30 RF: 0 sennosides [Senokot] 8.6 mg Tablet 8.6 mg PO DAILY PRN (Reason: Constipation) RF: 0 ondansetron 4 mg tablet,disintegrating 4 mg translingual Q6H PRN (Reason: Nausea And Vomiting) RF: 0 lisinopril 20 mg tablet 10 mg PO BID RF: 0 aspirin 81 mg tablet,delayed release (DR/EC) 81 mg PO QAM RF: 0 Admission Data Admit Date/Time: 10/05/21 12:15 Attending Provider: Tulio Saldaña Admit Provider: Jose Lopes Primary Care Provider: Feliciano Mckeon Other Providers: Jose Lopes Coding Level of Care Code D/C DAY MANAGEMENT >30 MINS Diagnoses DVT of lower extremity (deep venous thrombosis) I82.409 Primary osteoarthritis of right knee M17.11 Hypertension I10 Hypertension type: unspecified GERD (gastroesophageal reflux disease) K21.9 Pacemaker Z95.0 Incidental lung nodule, greater than or equal to 8mm R91.1
== END 2021-10-06 16:30 | disposition home health service (06) | DRG 315 ==
LOC: ED 08:32 → SUATTDRO 12:15 → 2N 12:15 → INTOOBSV 12:15 → 2N 13:27

== ENCOUNTER 2022-11-19 14:11 | Inpatient (IN) ==
[2022-11-19] MEDS ORDERED: ACETAMINOPHEN 325 MG TAB PO STA (17:11)
[2022-11-19] MEDS ORDERED: ALBUT/IPRATROP 3MG/0.5MG NEB 3 ML VIAL NEB STA (17:29)
--- NOTE | 2022-11-19 17:38 | History & Physical Report ---
Date of Service November 19, 2022 Assessment & Plan (1) NSTEMI (non-ST elevated myocardial infarction): Plan: -Admit to the PCU on tele and pulse oximetry -Unclear if type 1 vs type 2 at this time -Initial high sen trop at [facility] was 59 -->187 on 2 hour repeat -First trop on arrival is 1044 -Patient is currently asymptomatic -Patient did NOT receive Aspirin from EMS or ED staff prior to transfer, will give 324 mg chewed STAT, continue 81 mg daily tomorrow -ECG on arrival shows atrial-sensed, ventricular-paced rhythm without acute ST segment or T-wave changes -Restarting heparin drip wo bolus as she was on the drip at the time of arrival -Continue to trend high sen trop q6h, will give a dose of her BID Carvedilol now -Will obtain TTE tomorrow -Pacemaker interrogation ordered -Cardiology consult placed -BL SCD's and Heparin drip for DVT PPX -AM CBC, CMP, Mag, PT/INR, CRP -HH diet then NPO at midnight in case of hear cath tomorrow (2) Acute respiratory failure with hypoxia: Plan: -Currently Resolved -Currently stable on RA and asymptomatic when sitting up -Etiology is likely multifactorial including acute parainfluenza virus with possible superimposed bacterial pneumonia, acute CHF exacerbation, reactive airway disease, and PE -CTPE at [facility] was negative for central PE but the smaller pulmonary vessels were inadequately filled for proper evaluation -ABG on arrival shows a pH of 7.49, PCO2 of 27, and PO2 of 71 -No leukocytosis, however, procal on arrival now at febrile on arrival at 38.1C, S/P a dose of ceftriaxone and vancomycin prior to transfer -CRP elevated at 5.98 -Incentive spirometry, flutter therapy, giving DuoNeb now, if she experiences improvement in symptoms will continue -PRN O2 to keep SpO2 at or above 95% -Blood and sputum cultures obtained on arrival, continue to follow -Prn guaifenesin/dextromethorphan for cough -BL SCD's and heparin drip for DVT PPX -AM CBC, CMP, Mag, PT/INR, CRP (3) Pneumonia: Plan: -Right lobe infiltrate on CXR, procal elevated at 7, CRP elevated at 5.98 -Blood cultures ordered -Will continue with Ceftriaxone and Doxycycline for atypical coverage -Rest of care per acute respiratory failure (4) Acute CHF: Plan: -Patient noted to have pulmonary edema with pleural effusions on imaging today -BNP elevated at 2559 at [facility] -Stress echo from 2018 was negative for ischemia and showed a LVEF of 65-70%, will obtain TTE tomorrow -Will give 20 mg IV lasix now then continue with 20 mg IV BID17 moving forward -Monitor intake/output, daily renal function, and electrolytes with diuresis -Continue to monitor on tele (5) Parainfluenza virus infection: Plan: -Supportive care as per acute hypoxic respiratory failure (6) Hypertension: Plan: -Currently stable -Will give a dose of 25 mg PO Carvedilol now as she has not had a dose today, continue BID tomorrow -Will hold lisinopril for now to prevent hypotension with IV diuresis (7) Complete heart block: Plan: -S/P pacemaker placement -Continue to monitor on tele (8) GERD (gastroesophageal reflux disease): Plan: -Daily famotidine for stress ulcer PPX (9) Restless leg: Plan: -Continue pramipexole (10) Pre-syncope: Plan The patient was discussed with Dr. Law at the time of admission Admission and Anticipated Discharge Date Admission Date: November 19, 2022 History of Present Illness Chief Complaint: Acute respiratory failure with hypoxia, elevated troponin level Primary Care Provider: Feliciano Stanley is a 77 year old female with a PMH significant for complete heart block S/P pacemaker placement, previous DVT S/P knee replacement (completed 6 months of Eliquis), HTN, and hay fever who was transferred to [facility] from [facility] due to acute hypoxic respiratory failure and elevated troponin levels. Per transfer documents, the patient presented to [facility] this am via ALS due to acute respiratory failure. In route the patient was given one dose of SL nitroglycerine and was placed on CPAP due to her work of breathing. She was noted to be tachycardic with HR in the 110's but otherwise stable on CPAP. Labs were significant for a cbc WNL, cr of 1.0, AG of 17 with bicarb of 15, initial lactate of 3.5 --> 3.3 on 2 hour repeat, ABG with a pH of 7.20, PCO2 of 48, PO2 of 153, initial high sen trop of 59 -->187 on 2 hour repeat, procal of 0.06, CRP of 36, BNP of 2,559, D-dimer of 4.83, and full reparatory biofire positive for parainfluenza virus. CTPE was reported as having suboptimal arterial bolus. It was negative for "gross central pulmonary emboli", showed diffuse scattered ground glass infiltrates "suggesting atypical pneumonia vs pulmonary edema", "Cardiomegaly and trace right pleural effusion". ECG showed an atrial sensed ventricular paced rhythm without acute ST segment or T-wave changes. The patient was intially placed on Bipap on arrival and given 2L isolyte for sepsis bolus. She was also given a DuoNeb treatment, a dose of ceftriaxone, dose of Vancomycin, and started on a heparin drip for possible NSTEMI. Per review of all documentation and discussions with the patient, she was NOT given aspirin by EMS or [facility] prior to arrival. The patient was able to be weaned to 2L NC prior to transfer. At the time of the exam the patient was sitting in bed in no acute distress, current stable on RA. 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 When asked, she has noticed that she has been SOB with this activity and has felt more fatigued. 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 Since then the patient has had a progressive, non-productive cough, wheezing, and SOB. She states that she was up all night last night coughing. This am she woke up and tried to go to a friend's antique show, she did not take her am medications. When she arrived she was significantly SOB, frequently coughing, and felt lightheaded. She denies any chest pain over this time, she did experience minimal chest tightness during this time. At the time of my exam she states that she feels improved compared to arrival to the ED this am but still a little SOB. She denies recent fever, abd pain, nausea, vomitng, diarrhea, dysuria, hematuria, melena, and recent trauma. She is a full code and would want her to make medical decisions for her if she cannot make them herself. Please refer to Dr. Law's attestation for any changes to the treatment plan. Allergies Allergy/AdvReac Type Severity Reaction Status Date / Time clindamycin AdvReac Unknown nausea and Verified 10/29/21 10:25 vomiting Home Medications Medication Instructions Recorded Confirmed Type carvedilol 25 mg tablet 25 mg PO BID 12/10/18 11/19/22 History cholecalciferol (vitamin D3) 125 5,000 unit PO QAM 12/10/18 11/19/22 History mcg (5,000 unit) tablet (Vitamin D3) cyanocobalamin (vitamin B-12) 5,000 mcg sublingual QAM 12/10/18 11/19/22 History 5,000 mcg sublingual tablet lisinopril 20 mg tablet 10 mg PO BID 10/05/21 11/19/22 History acetaminophen 500 mg tablet 1,000 mg PO Q8 PRN Pain 10/10/21 11/19/22 History (Tylenol Extra Strength) pramipexole 1 mg tablet 2 mg PO HS 11/19/22 11/19/22 History Past Med/Surg History Medical History Borderline high cholesterol Bradycardia Complete heart block S/p pacemaker placement 2017 ([employer]) MOST RECENT CHECK LESS THAN A MONTH AGO Depression UNDER CONTROL Diverticulitis GERD (gastroesophageal reflux disease) Hypertension Paroxysmal atrial tachycardia No recent palpitations Restless leg SOB (shortness of breath) on exertion Chronic/gradual- stable Surgical History History of colonoscopy History of esophagogastroduodenoscopy (EGD) History of loop recorder PLACED AND REMOVED-05/2018 History of total knee replacement LEFT Pacemaker PLACED 05/2018 Status post hernia repair X 2 Family History Brother Family history of diabetes mellitus Sister Family history of diabetes mellitus Father , age 59 Myocardial infarction Mother , age 60; in her sleep No problems noted. 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 [place] How many Children do You have: 2 Other Information That Helps Us Care for You: No Feels Safe at Home: Yes Safety Concerns: Feels Safe At This Time Assistive Devices: None Physical Exam Physical Exam: Physical Exam: General: In no acute distress, stated age, well-nourished, good hygiene, non- toxic appearing HEENT: Normocephalic, atraumatic, no scleral icterus, pupils around round, symmetrical, and reactive to light, moist mucus membranes, trachea midline, no thyromegaly Chest/Pulm: mild respiratory distress, exacerbated when lying flat, symmetrical chest expansion, decreased breath sounds in the BL lower lung hunter with expiratory wheezing noted in all other lung hunter Cardiac: RRR, no murmurs noted Abdomen: Negative for ascites and bruising, normoactive bowel sounds, soft, non-tender to palpation throughout Musculoskeletal: Symmetrical and without signs of acute trauma, upper and lower extremities with full ROM, no atrophy, spasticity, or flaccidity Extremities: Radial, dorsalis pedis, and posterior tibial pulses are intact and symmetrical, no edema noted in the BL LE's Skin: Warm, dry, no rashes , lesions, or scars noted Neuro: Alert and oriented to person, place, month, year, and president, no focal defects, CN II-XII tested and intact, no tremors noted Psych: No acute distress, calm and cooperative during the exam Results & Data Results & Data Laboratory Results Admission labs are in process Diagnostic Findings Chest X-Ray 11/19/22 17:21 XR chest 1V portable HISTORY: 77 years-old Female SOB/NEW ADMIT acute shortness of breath COMPARISON: 10/05/2021 TECHNIQUE: AP view of the chest FINDINGS: Cardiac silhouette is mildly enlarged. Left subclavian pacer. Mild bilateral hilar prominence. No pneumothorax. Interstitial coarsening with patchy right lung airspace opacities. Degenerative changes of the shoulders and spine. Calcified granulomata right midlung. IMPRESSION: 1. Cardiomegaly with pulmonary vascular congestion. 2. Patchy right lung predominant airspace opacities suspicious for superimposed pneumonia. Follow-up recommended. 3. Mild hilar prominence may represent associated adenopathy. ACT 112: Negative or not required by law. The above report was generated using voice recognition software. It may contain grammatical, syntax or spelling errors. Electronically signed by: Avi Todd M.D. 11/19/2022 5:44 PM ECG Additional Comments: Atrial-sensed ventricular-paced rhythm Abnormal ECG When compared with ECG of 05-OCT-2021 09:18, Vent. rate has increased BY 41 BPM Code Status & VTE Plan Code Status Full code VTE Prophylaxis Plan VTE Prophylaxis will be ordered: Yes Supervising Physician Co-Signing Physician Notes I personally saw and examined the patient. I verified all mora points and agree with Roger Mahoney PA-C with the following exceptions and/or additions: 77 year old female transfer from [facility] as her tube coater is here and are unable to keep NSTEMI patients at [place] that may need a cardiac catheterization. She was not given any aspirin yet today, confirmed with patient and notes from [place]. Shortness of breath worse on lying down here. O/E A&Ox3, HS RRR, no murmurs, respiratory distress with use of accessory muscles, inspiratory and expiratory wheezing, Abdo SNT, trace b/l LE edema, no JVD A/P Pneumonia - parainfluenza virus + given elevation in procalcitonin suspect secondary bacterial infection with consolidation noted in RLL on CXR. Ceftriaxone + doxycycline Acute CHF with unknown EF - ?due to 2L IV fluids given at [place] for sepsis. Lactate improved since then but suspect this was more from hypoxia NSTEMI - unclear if type 1 (mild chest pain mentioned by patient this morning) vs type 2 (in setting of pneumonia, missing carvedilol, CHF with IV fluids possibly making this worse explaining the rapid rise from [place]). ASA 324mg PO given, continue IV heparin started at [place]. Trend troponin. TTE tomorrow. Consult cardiology. Presyncope - prior to presentation, pacemaker check. Acute respiratory failure with hypoxia - was also hypercapnic at [place] although this appears to now be resolved on current ABG. Aim O2 sats > 94 % in setting of NSTEMI Emphysema - noted on CXR and CT report at [place]. Recommend outpatient PFTs but never needed inhalers before therefore low suspicion of COPD PG Care Time/CCT Total # of Minutes Spent Total Time Spent with Patient: Total time spent is greater than 50% in coordination of care (as documented) at patient's floor/unit and/or counseling patient: Coding [place] [address] INT INP/OBS CARE 3/75MIN Patient Type Established Medical Decision Making High Complexity Diagnoses NSTEMI (non-ST elevated myocardial infarction) I21.4 Acute respiratory failure with hypoxia J96.01 Pneumonia J18.9 Acute CHF I50.9 Parainfluenza virus infection B34.8 Hypertension I10 Hypertension type: unspecified Complete heart block I44.2 GERD (gastroesophageal reflux disease) K21.9 Restless leg G25.81 Pre-syncope R55 (6) Hypertension Hypertension type: unspecified Qualified Code(s): I10 - Essential (primary) hypertension
--- NOTE | 2022-11-19 17:45 | XRay Report ---
XR chest 1V portable HISTORY: 77 years-old Female SOB/NEW ADMIT acute shortness of breath COMPARISON: 10/05/2021 TECHNIQUE: AP view of the chest FINDINGS: Cardiac silhouette is mildly enlarged. Left subclavian pacer. Mild bilateral hilar prominence. No pne umothorax. Interstitial coarsening with patchy right lung airspace opacities. Degenerative changes of the shoulders and spine. Calcified granulomata right midlung. IMPRESSION: 1. Cardiomegaly with pulmonary vascular congestion. 2. Patchy right lung predominant airspace opacities suspicious for superimposed pneumonia. Follow-up recommended. 3. Mild hilar prominence may represent associated adenopathy. ACT 112: Negative or not required by law. The above report was generated using voice recognition software. It may contain grammatical, syntax o r spelling errors. Electronically signed by: Avi Todd M.D. 11/19/2022 5:44 PM
[2022-11-19 17:51] LABS: Allen Test POS (Pos)
[2022-11-19 17:53] LABS: Base Excess ABG -1.4 mEq/L (-9-1.8); HCO3 ABG 21 mmol/L (19-24); PCO2 ABG 27 mmHg (35-46); PO2 ABG 71 mmHg (80-95); pH ABG 7.49 (7.35-7.45)
[2022-11-19] MEDS ORDERED: ASPIRIN CHEW 324 MG PO STA (17:54)
[2022-11-19] MEDS ORDERED: carvediloL 25 MG TAB PO ONE (18:00)
[2022-11-19 18:01] LABS: Basophils # (auto) 0.01 K/uL (0-0.2); Basophils % (auto) 0.1 %; Hematocrit (blood only) 42.2 % (37.0-47.0); Immature Granulocytes # (auto) 0.02 K/uL (0.01-0.20); Immature Granulocytes % (auto) 0.2 %; Lymphocytes # (auto) 0.98 K/uL (1.2-3.4); Lymphocytes % (auto) 11.9 %; Mean Corpuscular Hemoglobin 31.3 pg (25.0-34.0); Mean Corpuscular Hgb Conc 33.2 g/dL (32.0-36.0); Mean Corpuscular Volume 94.2 fL (80.0-100.0); Mean Platelet Volume 11.9 fL (9.4-12.4); Monocytes # (auto) 0.44 K/uL (0.11-0.59); Monocytes % (auto) 5.3 %; Neutrophils # (auto) 6.82 K/uL (1.40-6.50); Neutrophils % (auto) 82.5 %; Platelet Count 131 K/uL (130-400); RDW Coefficient of Variation 13.4 % (11.5-14.5); RDW Standard Deviation 46.6 fL (36.4-46.3); Red Blood Count 4.48 M/uL (4.20-5.40); White Blood Count 8.27 K/ul (4.8-10.8)
[2022-11-19] MEDS ORDERED: ACETAMINOPHEN 325 MG TAB PO PRN (18:11)
[2022-11-19] MEDS ORDERED: FUROSEMIDE 40 MG/4 ML VIAL IV ONE (18:15)
[2022-11-19 18:16] LABS: Alanine Aminotransferase 36 U/L (7-52); Albumin Globulin Ratio 1.4 (0.9-2); Albumin Level 3.5 gm/dl (3.4-5.0); Alkaline Phosphatase 70 U/L (34-104); Anion Gap 11 (3-11); Aspartate Aminotransferase 55 U/L (13-39); BUN Creatinine Ratio 19.7 (10-20); Bilirubin,Total 0.7 mg/dl (0.2-1.0); Blood Urea Nitrogen 13 mg/dl (6-23); C Reactive Protein 5.98 mg/dl (0-0.5); Calcium 7.9 mg/dl (8.6-10.3); Carbon Dioxide 20 mmol/L (21-32); Chloride 108 mmol/L (98-107); Est GFR (African American) 98.1 ml/min; Est GFR (Non-African American) 84.6 ml/min; Globulin 2.5 gm/dl (2.5-4.0); Glucose 87 mg/dl (70-99(Fasting)); Potassium 3.5 mmol/L (3.5-5.1); Sodium 139 mmol/L (136-145)
[2022-11-19 18:28] LABS: Troponin I High Sensitivity 1044.6 pg/ml (0-14)
[2022-11-19] MEDS ORDERED: Heparin IV Adult Wt-Based Low-Dose *NO* Bolus Protocol IV SCH (18:32)
[2022-11-19 18:41] LABS: INR 1.1 (0.9-1.1); Prothrombin Time 11.9 Seconds (9.0-12.0)
[2022-11-19] MEDS ORDERED: FUROSEMIDE INJ 20 MG/2 ML VIAL IV STA (18:42)
[2022-11-19] MEDS ORDERED: HEPARIN SODIUM/DEXTROSE 25,000 UNITS/500 ML BAG IV SCH (18:45)
[2022-11-19 18:47] LABS: Appearance Urine Clear (Clear); Bacteria Urine Automated Negative (Negative); Bilirubin Urine Negative (Negative); Blood Urine Trace (Negative); Color Urine Yellow; Epithelial Cell Urine Auto 20-30 /lpf (0-5); Glucose Urine UA Negative (Negative); Ketones Urine Trace (Negative); Leukocyte Esterase Urine 1+ (Negative); Nitrite Urine Negative (Negative); Protein Urine Negative (Negative); Specific Gravity Urine 1.031 (1.000-1.030); Urobilinogen Urine Negative (Negative)
[2022-11-19] MEDS ORDERED: POTASSIUM CHLORIDE CRTAB 20 MEQ TABCR PO STA (19:09)
[2022-11-19] MEDS: FAMOTIDINE 20 MG TAB PO SCH (19:38)
[2022-11-19] MEDS: guaiFENesin/DEXTROM SYRUP 100MG/10MG 5ML UDC PO PRN (19:50)
[2022-11-19 20:01] LABS: Partial Thromboplastin Time 57.7 Seconds (21.0-31.0)
[2022-11-19] MEDS ORDERED: carvediloL 25 MG TAB PO SCH (21:00)
[2022-11-19] MEDS: PRAMIPEXOLE DIHYDROCHLO 0.5 MG TAB PO SCH (21:09)
[2022-11-19] MEDS: DOXYCYCLINE HYCLATE 100 MG CAP PO SCH (21:09)
[2022-11-20 01:42] LABS: Partial Thromboplastin Time 56.1 Seconds (21.0-31.0)
[2022-11-20] MEDS: guaiFENesin/DEXTROM SYRUP 100MG/10MG 5ML UDC PO PRN ×2 (02:52→19:54)
[2022-11-20] MEDS ORDERED: HYDROcodone/HOMATROPINE SYRUP 5MG/1.5MG 5ML UDP PO STA (03:14)
[2022-11-20 06:12] LABS: Basophils # (auto) 0.02 K/uL (0-0.2); Basophils % (auto) 0.4 %; Eosinophils # (auto) 0.02 K/uL (0-0.50); Eosinophils % (auto) 0.4 %; Hematocrit (blood only) 32.9 % (37.0-47.0); Hemoglobin 10.9 g/dl (12.0-16.0); Immature Granulocytes # (auto) 0.02 K/uL (0.01-0.20); Immature Granulocytes % (auto) 0.4 %; Lymphocytes # (auto) 0.96 K/uL (1.2-3.4); Lymphocytes % (auto) 19.4 %; Mean Corpuscular Hemoglobin 31.1 pg (25.0-34.0); Mean Corpuscular Hgb Conc 33.1 g/dL (32.0-36.0); Mean Platelet Volume 11.2 fL (9.4-12.4); Monocytes # (auto) 0.45 K/uL (0.11-0.59); Monocytes % (auto) 9.1 %; Neutrophils # (auto) 3.47 K/uL (1.40-6.50); Neutrophils % (auto) 70.3 %; Platelet Count 106 K/uL (130-400); RDW Coefficient of Variation 13.5 % (11.5-14.5); RDW Standard Deviation 46.4 fL (36.4-46.3); White Blood Count 4.94 K/ul (4.8-10.8)
[2022-11-20 06:26] LABS: Albumin Globulin Ratio 1.5 (0.9-2); Albumin Level 3.2 gm/dl (3.4-5.0); BUN Creatinine Ratio 25.4 (10-20); Bilirubin,Total 0.7 mg/dl (0.2-1.0); C Reactive Protein 7.98 mg/dl (0-0.5); Calcium 7.7 mg/dl (8.6-10.3); Creatinine Clr Calc Pharmacy 62.3 ml/min; Est GFR (African American) 97.6 ml/min; Est GFR (Non-African American) 84.2 ml/min; Globulin 2.1 gm/dl (2.5-4.0); Potassium 3.5 mmol/L (3.5-5.1); Total Protein 5.3 gm/dl (6.0-8.3)
[2022-11-20 06:31] LABS: INR 1.1 (0.9-1.1); Prothrombin Time 12.2 Seconds (9.0-12.0)
[2022-11-20 08:10] LABS: Partial Thromboplastin Ratio 2.2
[2022-11-20 08:12] LABS: Partial Thromboplastin Time 62.1 Seconds (21.0-31.0)
[2022-11-20] MEDS: FAMOTIDINE 20 MG TAB PO SCH (08:43)
[2022-11-20] MEDS: DOXYCYCLINE HYCLATE 100 MG CAP PO SCH ×2 (08:43→20:56)
[2022-11-20] MEDS: cefTRIAXone SODIUM 2,000 MG in DEXTROSE 5% 50 ML IV SCH ×2 (08:44→19:55)
[2022-11-20] MEDS: FUROSEMIDE INJ 20 MG/2 ML VIAL IV SCH ×2 (08:44→13:35)
[2022-11-20] MEDS: ASPIRIN 81 MG ECTAB PO SCH (08:44)
[2022-11-20] MEDS: carvediloL 25 MG TAB PO SCH ×2 (08:44→20:56)
[2022-11-20 10:59] LABS: Influenza A virus by PCR Negative (Neg); Influenza B virus by PCR Negative (Neg); RSV by PCR Negative (Neg); SARS CoV2 RNA(COVID-19) Ceph NEGATIVE (Negative)
--- NOTE | 2022-11-20 11:32 | XCELERA ---
[id number] \\[id number]
--- NOTE | 2022-11-20 14:02 | Hospitalist Progress Note ---
Date of Service November 20, 2022 Assessment & Plan (1) NSTEMI (non-ST elevated myocardial infarction): Plan: -First trop on arrival is 1044, trending down. Now 304 On heparin drip TTE shows normal EF and no wall motion abnormalities Cardiology consulted, awaiting recommendations Pacemaker interrogation ordered Patient received aspirin On carvedilol Still n.p.o. for potential procedure today (2) Acute respiratory failure with hypoxia: Plan: -Currently Resolved -Currently stable on RA and asymptomatic when sitting up -Etiology is likely multifactorial including acute parainfluenza virus with possible superimposed bacterial pneumonia, acute CHF exacerbation, reactive airway disease, and less likely PE -CTPE at [facility] was negative for central PE but the smaller pulmonary vessels were inadequately filled for proper evaluation -No leukocytosis, however, procal on arrival now at febrile on arrival at 38.1C On ceftriaxone and doxycycline. Continue -Incentive spirometry, flutter therapy, giving DuoNeb now, if she experiences improvement in symptoms will continue -PRN O2 to keep SpO2 at or above 95% -Blood and sputum cultures pending, continue to follow -Prn guaifenesin/dextromethorphan for cough -BL SCD's and heparin drip for DVT PPX -AM CBC, CMP, Mag, PT/INR, CRP (3) Pneumonia: Plan: -Right lobe infiltrate on CXR, procal elevated at 7, CRP elevated at 5.98 -Blood cultures ordered -Will continue with Ceftriaxone and Doxycycline for atypical coverage -Rest of care per acute respiratory failure (4) Acute CHF: Plan: -Patient noted to have pulmonary edema with pleural effusions on imaging today -BNP elevated at 2559 at [facility] -[facility] shows normal EF, no wall motion abnormalities, moderate mitral valve regurgitation Was diuresed since admission Currently not hypoxic. 94% on room air We will hold off on further Lasix since borderline hypotensive and not very symptomatic -Monitor intake/output, daily renal function, and electrolytes with diuresis -Continue to monitor on tele (5) Parainfluenza virus infection: Plan: -Supportive care as per acute hypoxic respiratory failure COVID test ordered as it is unknown whether it was done upon presentation at outside hospital (6) Hypertension: Plan: -Blood pressure is soft -Continue carvedilol twice daily Was diuresed We will hold off on further diuretics as blood pressure is soft -Will hold lisinopril for now to prevent hypotension with IV diuresis (7) Complete heart block: Plan: -S/P pacemaker placement -Continue to monitor on tele (8) GERD (gastroesophageal reflux disease): Plan: -Daily famotidine for stress ulcer PPX (9) Restless leg: Plan: -Continue pramipexole (10) Pre-syncope: Admission and Anticipated Discharge Date Admission Date: November 19, 2022 Subjective Patient says that she feels much better compared to when she first came to the emergency room. Review of Systems Review of Systems: All systems reviewed & are unremarkable except as noted in Subjective Physical Exam Physical Exam: General: Awake, conversant Heart: S1, S2/regular rate and rhythm, no murmur rubs or gallops Lungs: Bilateral wheezing. Normal effort Abdomen: Soft/nontender/nondistended. No hepatosplenomegaly Extremities: No clubbing/cyanosis. No edema Behavior: Appropriate, cooperative Results & Data Results & Data Vital Signs (Past 12 Hours) Vital Signs Temp Pulse Pulse Resp BP BP Pulse Ox 11/20/22 13:46 94 11/20/22 13:31 60 116/62 11/20/22 11:36 36.8 C 59 L 18 88/51 L 96 11/20/22 07:30 11/20/22 08:41 69 11/20/22 08:34 37.1 C 70 18 134/68 95 11/20/22 02:29 36.9 C 65 20 121/68 100 11/20/22 03:16 65 124/69 O2 Del Method O2 Flow Rate 11/20/22 13:46 Room Air 11/20/22 13:31 11/20/22 11:36 Room Air 11/20/22 07:30 Nasal Cannula 2 11/20/22 08:41 11/20/22 08:34 Room Air 11/20/22 02:29 Nasal Cannula 2.0 11/20/22 03:16 Laboratory Results Abnormal lab results 11/19/22 11/19/22 11/19/22 Range/Units 17:31 17:31 17:31 RBC (4.20-5.40) M/uL Hgb (12.0-16.0) g/dl Hct (37.0-47.0) % RDW Std Deviation 46.6 H (36.4-46.3) fL Plt Count (130-400) K/uL Neut # (Auto) 6.82 H (1.40-6.50) K/uL Lymph # (Auto) 0.98 L (1.2-3.4) K/uL PT (9.0-12.0) Seconds APTT 57.7 H* (21.0-31.0) Seconds ABG pH (7.35-7.45) ABG pCO2 (35-46) mmHg ABG pO2 (80-95) mmHg ABG O2 Saturation (90-95) % Chloride (98-107) mmol/L Carbon Dioxide (21-32) mmol/L BUN/Creatinine Ratio (10-20) Calcium (8.6-10.3) mg/dl AST (13-39) U/L Troponin I High Sens (0-14) pg/ml C-Reactive Protein (0-0.5) mg/dl B-Natriuretic Peptide 586 H (0-100) pg/ml Total Protein (6.0-8.3) gm/dl Albumin (3.4-5.0) gm/dl Globulin (2.5-4.0) gm/dl Procalcitonin (0-0.5) ng/ml Ur Specific [place] (1.000-1.030) Urine Ketones (Negative) Urine Blood (Negative) Ur Leukocyte Esterase (Negative) Urine WBC (Auto) (0-5) /hpf Urine RBC (Auto) (0-4) /hpf U Epithel Cells (Auto) (0-5) /lpf 11/19/22 11/19/22 11/19/22 Range/Units 17:38 17:38 17:44 RBC (4.20-5.40) M/uL Hgb (12.0-16.0) g/dl Hct (37.0-47.0) % RDW Std Deviation (36.4-46.3) fL Plt Count (130-400) K/uL Neut # (Auto) (1.40-6.50) K/uL Lymph # (Auto) (1.2-3.4) K/uL PT (9.0-12.0) Seconds APTT (21.0-31.0) Seconds ABG pH 7.49 H (7.35-7.45) ABG pCO2 27 L (35-46) mmHg ABG pO2 71 L (80-95) mmHg ABG O2 Saturation 96.0 H (90-95) % Chloride 108 H (98-107) mmol/L Carbon Dioxide 20 L (21-32) mmol/L BUN/Creatinine Ratio (10-20) Calcium 7.9 L (8.6-10.3) mg/dl AST 55 H (13-39) U/L Troponin I High Sens 1044.6 H* (0-14) pg/ml C-Reactive Protein 5.98 H (0-0.5) mg/dl B-Natriuretic Peptide (0-100) pg/ml Total Protein (6.0-8.3) gm/dl Albumin (3.4-5.0) gm/dl Globulin (2.5-4.0) gm/dl Procalcitonin 7.32 H (0-0.5) ng/ml Ur Specific [place] (1.000-1.030) Urine Ketones (Negative) Urine Blood (Negative) Ur Leukocyte Esterase (Negative) Urine WBC (Auto) (0-5) /hpf Urine RBC (Auto) (0-4) /hpf U Epithel Cells (Auto) (0-5) /lpf 11/19/22 11/20/22 11/20/22 Range/Units 18:40 00:22 00:22 RBC (4.20-5.40) M/uL Hgb (12.0-16.0) g/dl Hct (37.0-47.0) % RDW Std Deviation (36.4-46.3) fL Plt Count (130-400) K/uL Neut # (Auto) (1.40-6.50) K/uL Lymph # (Auto) (1.2-3.4) K/uL PT (9.0-12.0) Seconds APTT 56.1 H* (21.0-31.0) Seconds ABG pH (7.35-7.45) ABG pCO2 (35-46) mmHg ABG pO2 (80-95) mmHg ABG O2 Saturation (90-95) % Chloride (98-107) mmol/L Carbon Dioxide (21-32) mmol/L BUN/Creatinine Ratio (10-20) Calcium (8.6-10.3) mg/dl AST (13-39) U/L Troponin I High Sens 837.8 H* (0-14) pg/ml C-Reactive Protein (0-0.5) mg/dl B-Natriuretic Peptide (0-100) pg/ml Total Protein (6.0-8.3) gm/dl Albumin (3.4-5.0) gm/dl Globulin (2.5-4.0) gm/dl Procalcitonin (0-0.5) ng/ml Ur Specific [place] 1.031 H (1.000-1.030) Urine Ketones Trace H (Negative) Urine Blood Trace H (Negative) Ur Leukocyte Esterase 1+ H (Negative) Urine WBC (Auto) 5-10 H (0-5) /hpf Urine RBC (Auto) 5-10 H (0-4) /hpf U Epithel Cells (Auto) 20-30 H (0-5) /lpf 11/20/22 11/20/22 11/20/22 Range/Units 05:48 05:48 05:48 RBC 3.50 L (4.20-5.40) M/uL Hgb 10.9 L D (12.0-16.0) g/dl Hct 32.9 L (37.0-47.0) % RDW Std Deviation 46.4 H (36.4-46.3) fL Plt Count 106 L (130-400) K/uL Neut # (Auto) (1.40-6.50) K/uL Lymph # (Auto) 0.96 L (1.2-3.4) K/uL PT 12.2 H (9.0-12.0) Seconds APTT (21.0-31.0) Seconds ABG pH (7.35-7.45) ABG pCO2 (35-46) mmHg ABG pO2 (80-95) mmHg ABG O2 Saturation (90-95) % Chloride 108 H (98-107) mmol/L Carbon Dioxide (21-32) mmol/L BUN/Creatinine Ratio 25.4 H (10-20) Calcium 7.7 L (8.6-10.3) mg/dl AST 42 H (13-39) U/L Troponin I High Sens (0-14) pg/ml C-Reactive Protein 7.98 H (0-0.5) mg/dl B-Natriuretic Peptide (0-100) pg/ml Total Protein 5.3 L (6.0-8.3) gm/dl Albumin 3.2 L (3.4-5.0) gm/dl Globulin 2.1 L (2.5-4.0) gm/dl Procalcitonin (0-0.5) ng/ml Ur Specific [place] (1.000-1.030) Urine Ketones (Negative) Urine Blood (Negative) Ur Leukocyte Esterase (Negative) Urine WBC (Auto) (0-5) /hpf Urine RBC (Auto) (0-4) /hpf U Epithel Cells (Auto) (0-5) /lpf 11/20/22 11/20/22 11/20/22 Range/Units 05:48 05:48 11:56 RBC (4.20-5.40) M/uL Hgb (12.0-16.0) g/dl Hct (37.0-47.0) % RDW Std Deviation (36.4-46.3) fL Plt Count (130-400) K/uL Neut # (Auto) (1.40-6.50) K/uL Lymph # (Auto) (1.2-3.4) K/uL PT (9.0-12.0) Seconds APTT 62.1 H* (21.0-31.0) Seconds ABG pH (7.35-7.45) ABG pCO2 (35-46) mmHg ABG pO2 (80-95) mmHg ABG O2 Saturation (90-95) % Chloride (98-107) mmol/L Carbon Dioxide (21-32) mmol/L BUN/Creatinine Ratio (10-20) Calcium (8.6-10.3) mg/dl AST (13-39) U/L Troponin I High Sens 394.5 H* D 304.3 H* D (0-14) pg/ml C-Reactive Protein (0-0.5) mg/dl B-Natriuretic Peptide (0-100) pg/ml Total Protein (6.0-8.3) gm/dl Albumin (3.4-5.0) gm/dl Globulin (2.5-4.0) gm/dl Procalcitonin (0-0.5) ng/ml Ur Specific [place] (1.000-1.030) Urine Ketones (Negative) Urine Blood (Negative) Ur Leukocyte Esterase (Negative) Urine WBC (Auto) (0-5) /hpf Urine RBC (Auto) (0-4) /hpf U Epithel Cells (Auto) (0-5) /lpf Diagnostic Findings Chest X-Ray 11/19/22 17:21 XR chest 1V portable HISTORY: 77 years-old Female SOB/NEW ADMIT acute shortness of breath COMPARISON: 10/05/2021 TECHNIQUE: AP view of the chest FINDINGS: Cardiac silhouette is mildly enlarged. Left subclavian pacer. Mild bilateral hilar prominence. No pneumothorax. Interstitial coarsening with patchy right lung airspace opacities. Degenerative changes of the shoulders and spine. Calcified granulomata right midlung. IMPRESSION: 1. Cardiomegaly with pulmonary vascular congestion. 2. Patchy right lung predominant airspace opacities suspicious for superimposed pneumonia. Follow-up recommended. 3. Mild hilar prominence may represent associated adenopathy. ACT 112: Negative or not required by law. The above report was generated using voice recognition software. It may contain grammatical, syntax or spelling errors. Electronically signed by: Avi Todd M.D. 11/19/2022 5:44 PM PG Care Time/CCT Total # of Minutes Spent Total Time Spent with Patient: Total time spent is greater than 50% in coordination of care (as documented) at patient's floor/unit and/or counseling patient: Coding Level of Care Code 22155 SUB INP/OBS CARE 2/35MIN Diagnoses NSTEMI (non-ST elevated myocardial infarction) I21.4 Acute respiratory failure with hypoxia J96.01 Pneumonia J18.9 Acute CHF I50.9 Parainfluenza virus infection B34.8 Hypertension I10 Hypertension type: unspecified Complete heart block I44.2 GERD (gastroesophageal reflux disease) K21.9 Restless leg G25.81 Pre-syncope R55 (6) Hypertension Hypertension type: unspecified Qualified Code(s): I10 - Essential (primary) hypertension
[2022-11-20] MEDS ORDERED: FUROSEMIDE INJ 20 MG/2 ML VIAL IV ONE (16:05)
--- NOTE | 2022-11-20 16:23 | Cardiology Consultation ---
Date of Consultation November 20, 2022 Assessment & Plan (1) Acute heart failure with preserved ejection fraction (HFpEF): (2) Elevated troponin: (3) NSTEMI (non-ST elevated myocardial infarction): (4) Acute respiratory failure with hypoxia: (5) Hypertension: (6) Pacemaker: Plan ASSESSMENT/PLAN: 1. Acute heart failure with preserved EF: Her history and presentation with significant improvement after diuresis, is consistent with heart failure with preserved EF. She still appears somewhat hypervolemic. Ordered another dose of Lasix 20 mg IV x1 and will likely transition to oral diuretic tomorrow. TSH ordered. Heart failure program referral. Discussed importance of low-sodium diet, less than 2000 mg daily. Daily weights at home. Strict I's and O's and daily weights here. 2. NSTEMI/elevated troponin: Presentation not suggestive of acute coronary syndrome. Likely demand ischemia in the setting of acute respiratory failure with hypoxia in the setting of CHF. Also diagnosed with pneumonia per primary hospitalist service. Heparin drip can be discontinued from a cardiac perspective. Could consider outpatient ischemic evaluation following treatment for her acute presentation. Risk factor modification. Can continue aspirin 81 mg daily for now. 3. Acute respiratory failure with hypoxia: As above. Doing much better now with diuresis. 4. Hypertension: Blood pressure has mostly been normotensive. No changes made at this time. 5. 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 6. Mitral regurgitation: Nonsevere based on today's imaging. Monitor as an outpatient. 7. Disposition: Cardiology will continue to follow. Plan of care communicated with primary hospitalist, Dr. Mack. On discharge, follow-up with Dr. Parkinson. Highly complex medical issues. Thank you for allowing me to participate in the care of your patient. Please call for any other questions or concerns. Sincerely, Zander Damon M.D. History of Present Illness Reason for Consultation: "Elevated trop, acute CHF" Requesting Physician: Roger Mahoney PA-C Attending Physician: Khris Mack MD History of Present Illness Mrs. Mitchell is a very pleasant 77-year-old female with a history significant for complete heart block s/p dual chamber pacemaker (2018), paroxysmal atrial tachycardia, DVT after knee replacement, and hypertension. Her primary rn clinical coordinator is Dr. Parkinson. She presented to [facility] with shortness of breath and was diagnosed with acute respiratory failure with hypoxia and elevated troponin level. She was then transferred to this facility later that day on 11/19/2022. CT imaging was reportedly completed at [facility] with reported atypical pneumonia versus pulmonary edema with diffuse scattered groundglass infiltrates. There was no identifiable pulmonary embolus in the central arteries. She was placed on BiPAP and received IV fluids. Bio fire was reportedly positive for parainfluenza virus. She was placed on antibiotic therapy, including ceftriaxone and a dose of vancomycin. Since September 2022, she has had lower extremity edema which has fluctuated. For the past 2 or 3 weeks, she has noted dyspnea on exertion new from baseline. For the past few days prior to presentation, she had orthopnea and cough noted while in bed. She denies chest pain, syncope, near syncope, palpitations, or bleeding such as melena, hematochezia, or hematuria. She states that she does not consume large amounts of sodium. On presentation here, she was noted to have elevated high-sensitivity troponin of 1044 which has since trended downward. She also had elevated BNP of 586. She received Lasix 20 mg IV on the evening of presentation and then another dose this morning. With this, she had diuresed a net -2.5 L thus far and is feeling much better but not yet back to baseline. She still has coughing when laying supine. Review of systems: As above. Review of systems otherwise negative/unremarkable. Social history: She denies tobacco or alcohol abuse. She is lives at home with her . 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 She has 2 daughters. Her and grandson were present at the bedside. Family history: Father in his 50s from myocardial infarction. Allergies Allergy/AdvReac Type Severity Reaction Status Date / Time clindamycin AdvReac Unknown nausea and Verified 10/29/21 10:25 vomiting Home Medications Medication Instructions Recorded Confirmed Type carvedilol 25 mg tablet 25 mg PO BID 12/10/18 11/19/22 History cholecalciferol (vitamin D3) 125 5,000 unit PO QAM 12/10/18 11/19/22 History mcg (5,000 unit) tablet (Vitamin D3) cyanocobalamin (vitamin B-12) 5,000 mcg sublingual QAM 12/10/18 11/19/22 History 5,000 mcg sublingual tablet lisinopril 20 mg tablet 10 mg PO BID 10/05/21 11/19/22 History acetaminophen 500 mg tablet 1,000 mg PO Q8 PRN Pain 10/10/21 11/19/22 History (Tylenol Extra Strength) pramipexole 1 mg tablet 2 mg PO HS 11/19/22 11/19/22 History Patient History Medical History Borderline high cholesterol Bradycardia Complete heart block S/p pacemaker placement 2017 ([employer]) MOST RECENT CHECK LESS THAN A MONTH AGO Depression UNDER CONTROL Diverticulitis GERD (gastroesophageal reflux disease) Hypertension Paroxysmal atrial tachycardia No recent palpitations Restless leg SOB (shortness of breath) on exertion Chronic/gradual- stable Surgical History History of colonoscopy History of esophagogastroduodenoscopy (EGD) History of loop recorder PLACED AND REMOVED-05/2018 History of total knee replacement LEFT Pacemaker PLACED 05/2018 Status post hernia repair X 2 Family History Brother Family history of diabetes mellitus Sister Family history of diabetes mellitus Father , age 59 Myocardial infarction Mother , age 60; in her sleep No problems noted. 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 Alert and oriented. HEENT: Anicteric sclera. Neck: No JVD. Hepatojugular reflux noted. No bruits. Normal carotid upstrokes bilaterally. Cardiac: PMI was nondisplaced. No ventricular heave. Regular. Normal S1-S2. No murmurs, rubs, or gallops. Pulmonary: Clear to auscultation bilaterally without wheezes, rales, or rhonchi. Abdomen: Soft, nontender, nondistended, with normoactive bowel sounds. No bruits noted. Extremities: 2+ radial pulses bilaterally. 2+ posterior tibialis pulses bilaterally. Bilateral lower extremity varicose veins. No edema or cyanosis. Psychiatric: Affect appears appropriate. Results & Data Vital Signs (Past 12 Hours) Vital Signs Temp Pulse Pulse Resp BP BP Pulse Ox 11/20/22 15:23 63 11/20/22 13:46 94 11/20/22 13:31 60 116/62 11/20/22 11:36 36.8 C 59 L 18 88/51 L 96 11/20/22 07:30 11/20/22 08:41 69 11/20/22 08:34 37.1 C 70 18 134/68 95 O2 Del Method O2 Flow Rate 11/20/22 15:23 11/20/22 13:46 Room Air 11/20/22 13:31 11/20/22 11:36 Room Air 11/20/22 07:30 Nasal Cannula 2 11/20/22 08:41 11/20/22 08:34 Room Air Intake & Output 11/18/22 11/19/22 11/20/22 11/21/22 06:59 06:59 06:59 06:59 Intake Total 227.5 / 227.5 244 / 244 Output Total 1650 / 1650 1350 / 1350 Balance -1422.5 / -1422.5 -1106 / -1106 Weight 143 lb 4.807 oz Laboratory Results Laboratory Results - last 24 hr 11/19/22 11/19/22 11/19/22 17:31 17:31 17:31 WBC 8.27 RBC 4.48 Hgb 14.0 Hct 42.2 MCV 94.2 MCH 31.3 MCHC 33.2 RDW Std Deviation 46.6 H RDW Coeff of Mohinder 13.4 Plt Count 131 MPV 11.9 Immature Gran % (Auto) 0.2 Neut % (Auto) 82.5 Lymph % (Auto) 11.9 [place] % (Auto) 5.3 Eos % (Auto) 0.0 Baso % (Auto) 0.1 Neut # (Auto) 6.82 H Lymph # (Auto) 0.98 L [place] # (Auto) 0.44 Eos # (Auto) 0.00 Baso # (Auto) 0.01 Immature Gran # (Auto) 0.02 PT 11.9 INR 1.1 APTT 57.7 H* PTT Ratio 2.0 ABG pH ABG pCO2 ABG pO2 ABG HCO3 ABG O2 Saturation ABG Base Excess Keagan Test Oxygen Given Sodium Potassium Chloride Carbon Dioxide Anion Gap BUN Creatinine Est Cr Clr Drug Dosing Est GFR ( Amer) Est GFR (Non-Af Amer) BUN/Creatinine Ratio Glucose Lactate Calcium Magnesium Total Bilirubin AST ALT Alkaline Phosphatase Troponin I High Sens C-Reactive Protein B-Natriuretic Peptide 586 H Total Protein Albumin Globulin Albumin/Globulin Ratio Procalcitonin Urine Color Urine Appearance Urine pH Ur Specific [place] Urine Protein Urine Glucose (UA) Urine Ketones Urine Blood Urine Nitrite Urine Bilirubin Urine Urobilinogen Ur Leukocyte Esterase Urine WBC (Auto) Urine RBC (Auto) U Hyaline Cast (Auto) U Epithel Cells (Auto) Urine Bacteria (Auto) Nasal Screen MRSA (PCR) SARS-CoV-2 (PCR) Influenza Type A (PCR) Influenza Type B (PCR) RSV (RT-PCR) 11/19/22 11/19/22 11/19/22 17:38 17:38 17:44 WBC RBC Hgb Hct MCV MCH MCHC RDW Std Deviation RDW Coeff of Mohinder Plt Count MPV Immature Gran % (Auto) Neut % (Auto) Lymph % (Auto) [place] % (Auto) Eos % (Auto) Baso % (Auto) Neut # (Auto) Lymph # (Auto) [place] # (Auto) Eos # (Auto) Baso # (Auto) Immature Gran # (Auto) PT INR APTT PTT Ratio ABG pH 7.49 H ABG pCO2 27 L ABG pO2 71 L ABG HCO3 21 ABG O2 Saturation 96.0 H ABG Base Excess -1.4 Keagan Test POS Oxygen Given ROOM AIR Sodium 139 Potassium 3.5 Chloride 108 H Carbon Dioxide 20 L Anion Gap 11 BUN 13 Creatinine 0.66 Est Cr Clr Drug Dosing Not Reportable Est GFR ( Amer) 98.1 Est GFR (Non-Af Amer) 84.6 BUN/Creatinine Ratio 19.7 Glucose 87 Lactate Calcium 7.9 L Magnesium 2.0 Total Bilirubin 0.7 AST 55 H ALT 36 Alkaline Phosphatase 70 Troponin I High Sens 1044.6 H* C-Reactive Protein 5.98 H B-Natriuretic Peptide Total Protein 6.0 Albumin 3.5 Globulin 2.5 Albumin/Globulin Ratio 1.4 Procalcitonin 7.32 H Urine Color Urine Appearance Urine pH Ur Specific [place] Urine Protein Urine Glucose (UA) Urine Ketones Urine Blood Urine Nitrite Urine Bilirubin Urine Urobilinogen Ur Leukocyte Esterase Urine WBC (Auto) Urine RBC (Auto) U Hyaline Cast (Auto) U Epithel Cells (Auto) Urine Bacteria (Auto) Nasal Screen MRSA (PCR) SARS-CoV-2 (PCR) Influenza Type A (PCR) Influenza Type B (PCR) RSV (RT-PCR) 11/19/22 11/19/22 11/19/22 17:44 18:40 18:40 WBC RBC Hgb Hct MCV MCH MCHC RDW Std Deviation RDW Coeff of Mohinder Plt Count MPV Immature Gran % (Auto) Neut % (Auto) Lymph % (Auto) [place] % (Auto) Eos % (Auto) Baso % (Auto) Neut # (Auto) Lymph # (Auto) [place] # (Auto) Eos # (Auto) Baso # (Auto) Immature Gran # (Auto) PT INR APTT PTT Ratio ABG pH ABG pCO2 ABG pO2 ABG HCO3 ABG O2 Saturation ABG Base Excess Keagan Test Oxygen Given Sodium Potassium Chloride Carbon Dioxide Anion Gap BUN Creatinine Est Cr Clr Drug Dosing Est GFR ( Amer) Est GFR (Non-Af Amer) BUN/Creatinine Ratio Glucose Lactate 1.9 Calcium Magnesium Total Bilirubin AST ALT Alkaline Phosphatase Troponin I High Sens C-Reactive Protein B-Natriuretic Peptide Total Protein Albumin Globulin Albumin/Globulin Ratio Procalcitonin Urine Color Yellow Urine Appearance Clear Urine pH 6.0 Ur Specific [place] 1.031 H Urine Protein Negative Urine Glucose (UA) Negative Urine Ketones Trace H Urine Blood Trace H Urine Nitrite Negative Urine Bilirubin Negative Urine Urobilinogen Negative Ur Leukocyte Esterase 1+ H Urine WBC (Auto) 5-10 H Urine RBC (Auto) 5-10 H U Hyaline Cast (Auto) 1-5 U Epithel Cells (Auto) 20-30 H Urine Bacteria (Auto) Negative Nasal Screen MRSA (PCR) Negative SARS-CoV-2 (PCR) Influenza Type A (PCR) Influenza Type B (PCR) RSV (RT-PCR) 11/20/22 11/20/22 11/20/22 00:22 00:22 05:48 WBC 4.94 RBC 3.50 L Hgb 10.9 L D Hct 32.9 L MCV 94.0 MCH 31.1 MCHC 33.1 RDW Std Deviation 46.4 H RDW Coeff of Mohinder 13.5 Plt Count 106 L MPV 11.2 Immature Gran % (Auto) 0.4 Neut % (Auto) 70.3 Lymph % (Auto) 19.4 [place] % (Auto) 9.1 Eos % (Auto) 0.4 Baso % (Auto) 0.4 Neut # (Auto) 3.47 Lymph # (Auto) 0.96 L [place] # (Auto) 0.45 Eos # (Auto) 0.02 Baso # (Auto) 0.02 Immature Gran # (Auto) 0.02 PT INR APTT 56.1 H* PTT Ratio 2.0 ABG pH ABG pCO2 ABG pO2 ABG HCO3 ABG O2 Saturation ABG Base Excess Keagan Test Oxygen Given Sodium Potassium Chloride Carbon Dioxide Anion Gap BUN Creatinine Est Cr Clr Drug Dosing Est GFR ( Amer) Est GFR (Non-Af Amer) BUN/Creatinine Ratio Glucose Lactate Calcium Magnesium Total Bilirubin AST ALT Alkaline Phosphatase Troponin I High Sens 837.8 H* C-Reactive Protein B-Natriuretic Peptide Total Protein Albumin Globulin Albumin/Globulin Ratio Procalcitonin Urine Color Urine Appearance Urine pH Ur Specific [place] Urine Protein Urine Glucose (UA) Urine Ketones Urine Blood Urine Nitrite Urine Bilirubin Urine Urobilinogen Ur Leukocyte Esterase Urine WBC (Auto) Urine RBC (Auto) U Hyaline Cast (Auto) U Epithel Cells (Auto) Urine Bacteria (Auto) Nasal Screen MRSA (PCR) SARS-CoV-2 (PCR) Influenza Type A (PCR) Influenza Type B (PCR) RSV (RT-PCR) 11/20/22 11/20/22 11/20/22 05:48 05:48 05:48 WBC RBC Hgb Hct MCV MCH MCHC RDW Std Deviation RDW Coeff of Mohinder Plt Count MPV Immature Gran % (Auto) Neut % (Auto) Lymph % (Auto) [place] % (Auto) Eos % (Auto) Baso % (Auto) Neut # (Auto) Lymph # (Auto) [place] # (Auto) Eos # (Auto) Baso # (Auto) Immature Gran # (Auto) PT 12.2 H INR 1.1 APTT PTT Ratio ABG pH ABG pCO2 ABG pO2 ABG HCO3 ABG O2 Saturation ABG Base Excess Keagan Test Oxygen Given Sodium 139 Potassium 3.5 Chloride 108 H Carbon Dioxide 25 Anion Gap 6 BUN 17 Creatinine 0.67 Est Cr Clr Drug Dosing 62.3 Est GFR ( Amer) 97.6 Est GFR (Non-Af Amer) 84.2 BUN/Creatinine Ratio 25.4 H Glucose 95 Lactate Calcium 7.7 L Magnesium 2.0 Total Bilirubin 0.7 AST 42 H ALT 28 Alkaline Phosphatase 58 Troponin I High Sens 394.5 H* D C-Reactive Protein 7.98 H B-Natriuretic Peptide Total Protein 5.3 L Albumin 3.2 L Globulin 2.1 L Albumin/Globulin Ratio 1.5 Procalcitonin Urine Color Urine Appearance Urine pH Ur Specific [place] Urine Protein Urine Glucose (UA) Urine Ketones Urine Blood Urine Nitrite Urine Bilirubin Urine Urobilinogen Ur Leukocyte Esterase Urine WBC (Auto) Urine RBC (Auto) U Hyaline Cast (Auto) U Epithel Cells (Auto) Urine Bacteria (Auto) Nasal Screen MRSA (PCR) SARS-CoV-2 (PCR) Influenza Type A (PCR) Influenza Type B (PCR) RSV (RT-PCR) 11/20/22 11/20/22 11/20/22 05:48 11:56 Unknown WBC RBC Hgb Hct MCV MCH MCHC RDW Std Deviation RDW Coeff of Mohinder Plt Count MPV Immature Gran % (Auto) Neut % (Auto) Lymph % (Auto) [place] % (Auto) Eos % (Auto) Baso % (Auto) Neut # (Auto) Lymph # (Auto) [place] # (Auto) Eos # (Auto) Baso # (Auto) Immature Gran # (Auto) PT INR APTT 62.1 H* PTT Ratio 2.2 ABG pH ABG pCO2 ABG pO2 ABG HCO3 ABG O2 Saturation ABG Base Excess Keagan Test Oxygen Given Sodium Potassium Chloride Carbon Dioxide Anion Gap BUN Creatinine Est Cr Clr Drug Dosing Est GFR ( Amer) Est GFR (Non-Af Amer) BUN/Creatinine Ratio Glucose Lactate Calcium Magnesium Total Bilirubin AST ALT Alkaline Phosphatase Troponin I High Sens 304.3 H* D C-Reactive Protein B-Natriuretic Peptide Total Protein Albumin Globulin Albumin/Globulin Ratio Procalcitonin Urine Color Urine Appearance Urine pH Ur Specific [place] Urine Protein Urine Glucose (UA) Urine Ketones Urine Blood Urine Nitrite Urine Bilirubin Urine Urobilinogen Ur Leukocyte Esterase Urine WBC (Auto) Urine RBC (Auto) U Hyaline Cast (Auto) U Epithel Cells (Auto) Urine Bacteria (Auto) Nasal Screen MRSA (PCR) SARS-CoV-2 (PCR) NEGATIVE Influenza Type A (PCR) Negative Influenza Type B (PCR) Negative RSV (RT-PCR) Negative Diagnostic Findings Telemetry personally reviewed: AV pacing. No arrhythmia noted. History and physical report reviewed. Chest x-ray image personally reviewed from 11/19/2021: No significant pleural effusion. Dual-chamber pacemaker noted. Per radiology, pulmonary vascular congestion. Patchy right lung predominant airspace opacities suspicious for superimposed pneumonia per radiology. Labs notable for elevated high-sensitivity troponin levels, trending downward. Elevated BNP, elevated but improved AST, mild anemia and thrombocytopenia. ECGs personally reviewed: ECG 11/19/2022 at 1744: Atrial sensed ventricular paced 88 bpm. ECG 11/20/2022 at 6:15 AM: Atrial sensed ventricular paced 66 bpm. ECG 11/19/2022 at 1845: Atrial sensed ventricular paced 104 bpm. Echo 11/20/2022: Normal LV size, wall motion, systolic function. EF 65 to 70%. No LVH. Mild left atrial dilation. Moderate MR. Normal RVSP. Medications Administered Current Inpatient Medications Acetaminophen (Acetaminophen 325 Mg Tab) 650 mg PO Q4H PRN PRN Reason: Pain(1,2,3) Or Fever Stop: 12/19/22 18:10 Last Admin: 11/20/22 07:45 Dose: 650 mg Aspirin (Aspirin 81 Mg Ectab) 81 mg PO QAM [facility] Stop: 12/20/22 08:59 Last Admin: 11/20/22 08:44 Dose: 81 mg Carvedilol (Carvedilol 25 Mg Tab) 25 mg PO BID [facility] Stop: 12/20/22 08:59 Last Admin: 11/20/22 08:44 Dose: 25 mg Doxycycline Hyclate (Doxycycline Hyclate 100 Mg Cap) 100 mg PO BID [facility] Stop: 11/26/22 20:59 Last Admin: 11/20/22 08:43 Dose: 100 mg Famotidine (Famotidine 20 Mg Tab) 20 mg PO QAM [facility] Stop: 12/19/22 17:44 Last Admin: 11/20/22 08:43 Dose: 20 mg Guaifenesin/Dextromethorphan (Guaifenesin/Dextrom Syrup 100mg/10mg 5ml Udc) 5 ml PO Q6H PRN PRN Reason: Cough Stop: 12/19/22 17:26 Last Admin: 11/20/22 02:52 Dose: 5 ml Heparin Sodium/Dextrose (Heparin Sodium/Dextrose) 25,000 units in 500 mls @ 15 mls/hr IV .Q24H [facility]; Protocol Stop: 12/19/22 18:44 Last Titration: 11/20/22 07:01 Dose: 750 units/hr, 15 mls/hr Ceftriaxone Sodium 2,000 mg/ (Dextrose) 70 mls @ 100 mls/hr IV Q12H [facility]; Protocol Stop: 11/27/22 07:59 Last Infusion: 11/20/22 09:27 Dose: Infused Pramipexole Dihydrochloride (Pramipexole Dihydrochlo 0.5 Mg Tab) 2 mg PO HS [facility] Stop: 12/19/22 20:59 Last Admin: 11/19/22 21:09 Dose: 2 mg PG Care Time/CCT Total # of Minutes Spent Total Time Spent with Patient: Total time spent is greater than 50% in coordination of care (as documented) at patient's floor/unit and/or counseling patient: Coding Level of Care Code 43766 INT INP/OBS CARE 3/75MIN Diagnoses Acute heart failure with preserved ejection fraction (HFpEF) I50.31 Elevated troponin R77.8 NSTEMI (non-ST elevated myocardial infarction) I21.4 Acute respiratory failure with hypoxia J96.01 Hypertension I10 Hypertension type: unspecified Pacemaker Z95.0 (5) Hypertension Hypertension type: unspecified Qualified Code(s): I10 - Essential (primary) hypertension
[2022-11-20] MEDS ORDERED: HEPARIN--STOP ORDER ONE (16:30)
[2022-11-20] MEDS ORDERED: COUGH DROP (SUGAR FREE) LOZ 24 LOZ/1 BOX BUCCAL PRN (18:08)
[2022-11-20] MEDS: PRAMIPEXOLE DIHYDROCHLO 0.5 MG TAB PO SCH (20:56)
[2022-11-20] MEDS: MELATONIN 3 MG TAB PO PRN (21:58)
[2022-11-21 06:09] LABS: Basophils # (auto) 0.02 K/uL (0-0.2); Basophils % (auto) 0.4 %; Eosinophils # (auto) 0.02 K/uL (0-0.50); Eosinophils % (auto) 0.4 %; Hematocrit (blood only) 33.6 % (37.0-47.0); Hemoglobin 11.4 g/dl (12.0-16.0); Immature Granulocytes # (auto) 0.02 K/uL (0.01-0.20); Immature Granulocytes % (auto) 0.4 %; Lymphocytes # (auto) 1.09 K/uL (1.2-3.4); Lymphocytes % (auto) 22.1 %; Mean Corpuscular Hemoglobin 31.2 pg (25.0-34.0); Mean Corpuscular Hgb Conc 33.9 g/dL (32.0-36.0); Mean Corpuscular Volume 92.1 fL (80.0-100.0); Mean Platelet Volume 11.6 fL (9.4-12.4); Monocytes # (auto) 0.42 K/uL (0.11-0.59); Monocytes % (auto) 8.5 %; Neutrophils # (auto) 3.37 K/uL (1.40-6.50); Neutrophils % (auto) 68.2 %; Platelet Count 116 K/uL (130-400); RDW Coefficient of Variation 12.9 % (11.5-14.5); RDW Standard Deviation 43.5 fL (36.4-46.3); Red Blood Count 3.65 M/uL (4.20-5.40); White Blood Count 4.94 K/ul (4.8-10.8)
[2022-11-21 06:24] LABS: Albumin Globulin Ratio 1.5 (0.9-2); Albumin Level 3.3 gm/dl (3.4-5.0); BUN Creatinine Ratio 29.4 (10-20); Bilirubin,Total 0.7 mg/dl (0.2-1.0); C Reactive Protein 8.9 mg/dl (0-0.5); Calcium 8.3 mg/dl (8.6-10.3); Creatinine Clr Calc Pharmacy 61.4 ml/min; Est GFR (African American) 97.1 ml/min; Est GFR (Non-African American) 83.8 ml/min; Globulin 2.2 gm/dl (2.5-4.0); Magnesium 1.8 mg/dl (1.7-2.4); Potassium 3.6 mmol/L (3.5-5.1); Total Protein 5.5 gm/dl (6.0-8.3)
[2022-11-21 06:45] LABS: Partial Thromboplastin Ratio 1.1; Partial Thromboplastin Time 30.8 Seconds (21.0-31.0); Prothrombin Time 11.1 Seconds (9.0-12.0)
[2022-11-21] MEDS: cefTRIAXone SODIUM 2,000 MG in DEXTROSE 5% 50 ML IV SCH (08:31)
[2022-11-21] MEDS: ASPIRIN 81 MG ECTAB PO SCH (08:32)
[2022-11-21] MEDS: FAMOTIDINE 20 MG TAB PO SCH (08:32)
[2022-11-21] MEDS: carvediloL 25 MG TAB PO SCH ×2 (08:33→20:38)
[2022-11-21] MEDS: DOXYCYCLINE HYCLATE 100 MG CAP PO SCH ×2 (08:33→20:38)
[2022-11-21] MEDS: guaiFENesin/DEXTROM SYRUP 100MG/10MG 5ML UDC PO PRN ×2 (08:34→20:38)
--- NOTE | 2022-11-21 10:23 | Cardiology Progress Note ---
Date of Service November 21, 2022 Assessment & Plan (1) Acute heart failure with preserved ejection fraction (HFpEF): (2) Elevated troponin: (3) NSTEMI (non-ST elevated myocardial infarction): (4) Acute respiratory failure with hypoxia: (5) Hypertension: (6) Pacemaker: Plan ASSESSMENT/PLAN: 1. Acute heart failure with preserved EF: Her history and presentation with significant improvement after diuresis, is consistent with heart failure with preserved EF. Good diuresis yesterday with additional lasix 20 mg IV x 1. Breathing not yet back to baseline. Ordered another dose of Lasix 20 mg IV x1. Recommend oral lasix 20 mg po qday tomorrow or at discharge. Heart failure program referral. Discussed importance of low-sodium diet, less than 2000 mg daily. Daily weights at home. Strict I's and O's and daily weights here. 2. NSTEMI/elevated troponin: Presentation not suggestive of acute coronary syndrome. Likely demand ischemia in the setting of acute respiratory failure with hypoxia in the setting of CHF. Also diagnosed with pneumonia per primary hospitalist service. Could consider outpatient ischemic evaluation following treatment for her acute presentation. Risk factor modification. Can continue aspirin 81 mg daily for now. 3. Acute respiratory failure with hypoxia: As above. Doing much better now with diuresis. 4. Hypertension: Blood pressure has mostly been normotensive to mildly hypertensive. Additional diuretic as above. 5. Heart block s/p dual-chamber pacemaker: Continue to follow with her primary drafter electrical/individual pension adviser. 6. Mitral regurgitation: Nonsevere based on today's imaging. Monitor as an outpatient. 7. Disposition: Cardiology will sign off. Can be discharged from cardiac perspective, when ok with hospitalist and with other noncardiac issues. Plan of care communicated with primary hospitalist, Dr. Mack. On discharge, follow-up with Dr. Parkinson, her primary drafter electrical. Admission and Anticipated Discharge Date Admission Date: November 19, 2022 Subjective She feels even better today. Less coughing while supine. No orthopnea. Able to ambulate in the hallway without significant dyspnea, but breathing not yet back to baseline. No chest pain, palpitations, syncope, edema, or bleeding. She was unaccompanied in her hospital room. Physical Exam Physical Exam: Gen.: No acute distress. Alert and oriented. HEENT: Anicteric sclera. Neck: No JVD. No Hepatojugular reflux noted. Cardiac: No ventricular heave. Regular. Normal S1-S2. No murmurs, rubs, or gallops. Pulmonary: Rales at the right base, but otherwise clear. Abdomen: Soft, nontender, nondistended, with normoactive bowel sounds. No bruits noted. Extremities: 2+ radial pulses bilaterally. 2+ posterior tibialis pulses bilaterally. Bilateral lower extremity varicose veins. No significant pitting edema or cyanosis. Psychiatric: Affect appears appropriate. Results & Data Vital Signs (Past 12 Hours) Vital Signs Temp Pulse Resp BP BP Pulse Ox O2 Del Method 11/21/22 07:48 36.7 C 67 18 135/70 95 Nasal Cannula 11/21/22 03:46 36.5 C 66 18 147/76 H 96 Nasal Cannula 11/20/22 23:33 37.3 C 88 20 133/71 93 Nasal Cannula O2 Flow Rate 11/21/22 07:48 1 11/21/22 03:46 1.5 11/20/22 23:33 1.5 Intake & Output 11/19/22 11/20/22 11/21/22 11/22/22 06:59 06:59 06:59 06:59 Intake Total 227.5 / 227.5 811.5 / 811.5 / 70 Output Total 1650 / 1650 3000 / 3000 Balance -1422.5 / -1422.5 -2188.5 / -2188.5 70 / 70 Weight 143 lb 4.807 oz 147 lb 0.773 oz Laboratory Results Laboratory Results - last 24 hr 11/20/22 11/20/22 11/20/22 11:56 17:43 Unknown WBC RBC Hgb Hct MCV MCH MCHC RDW Std Deviation RDW Coeff of Mohinder Plt Count MPV Immature Gran % (Auto) Neut % (Auto) Lymph % (Auto) [place] % (Auto) Eos % (Auto) Baso % (Auto) Neut # (Auto) Lymph # (Auto) [place] # (Auto) Eos # (Auto) Baso # (Auto) Immature Gran # (Auto) PT INR APTT PTT Ratio Sodium Potassium Chloride Carbon Dioxide Anion Gap BUN Creatinine Est Cr Clr Drug Dosing Est GFR ( Amer) Est GFR (Non-Af Amer) BUN/Creatinine Ratio Glucose Calcium Magnesium Total Bilirubin AST ALT Alkaline Phosphatase Troponin I High Sens 304.3 H* D 222.7 H* D C-Reactive Protein Total Protein Albumin Globulin Albumin/Globulin Ratio TSH SARS-CoV-2 (PCR) NEGATIVE Influenza Type A (PCR) Negative Influenza Type B (PCR) Negative RSV (RT-PCR) Negative 11/21/22 11/21/22 11/21/22 00:51 05:44 05:44 WBC 4.94 RBC 3.65 L Hgb 11.4 L Hct 33.6 L MCV 92.1 MCH 31.2 MCHC 33.9 RDW Std Deviation 43.5 RDW Coeff of Mohinder 12.9 Plt Count 116 L MPV 11.6 Immature Gran % (Auto) 0.4 Neut % (Auto) 68.2 Lymph % (Auto) 22.1 [place] % (Auto) 8.5 Eos % (Auto) 0.4 Baso % (Auto) 0.4 Neut # (Auto) 3.37 Lymph # (Auto) 1.09 L [place] # (Auto) 0.42 Eos # (Auto) 0.02 Baso # (Auto) 0.02 Immature Gran # (Auto) 0.02 PT 11.1 INR 1.0 APTT 30.8 PTT Ratio 1.1 Sodium Potassium Chloride Carbon Dioxide Anion Gap BUN Creatinine Est Cr Clr Drug Dosing Est GFR ( Amer) Est GFR (Non-Af Amer) BUN/Creatinine Ratio Glucose Calcium Magnesium Total Bilirubin AST ALT Alkaline Phosphatase Troponin I High Sens 257.5 H* C-Reactive Protein Total Protein Albumin Globulin Albumin/Globulin Ratio TSH SARS-CoV-2 (PCR) Influenza Type A (PCR) Influenza Type B (PCR) RSV (RT-PCR) 11/21/22 11/21/22 11/21/22 05:44 05:44 05:44 WBC RBC Hgb Hct MCV MCH MCHC RDW Std Deviation RDW Coeff of Mohinder Plt Count MPV Immature Gran % (Auto) Neut % (Auto) Lymph % (Auto) [place] % (Auto) Eos % (Auto) Baso % (Auto) Neut # (Auto) Lymph # (Auto) [place] # (Auto) Eos # (Auto) Baso # (Auto) Immature Gran # (Auto) PT INR APTT PTT Ratio Sodium 138 Potassium 3.6 Chloride 103 Carbon Dioxide 28 Anion Gap 7 BUN 20 Creatinine 0.68 Est Cr Clr Drug Dosing 61.4 Est GFR ( Amer) 97.1 Est GFR (Non-Af Amer) 83.8 BUN/Creatinine Ratio 29.4 H Glucose 105 H Calcium 8.3 L Magnesium 1.8 Total Bilirubin 0.7 AST 33 ALT 25 Alkaline Phosphatase 56 Troponin I High Sens 140.4 H* D C-Reactive Protein 8.90 H Total Protein 5.5 L Albumin 3.3 L Globulin 2.2 L Albumin/Globulin Ratio 1.5 TSH 0.897 SARS-CoV-2 (PCR) Influenza Type A (PCR) Influenza Type B (PCR) RSV (RT-PCR) Diagnostic Findings Telemetry personally reviewed: AV pacing. Labs reviewed from 11/21/2022: Downtrending high-sensitivity troponin, improving thrombocytopenia, mild anemia, stable renal function, normal potassium, normal transaminase levels. Normal TSH. Medications Administered Current Inpatient Medications Acetaminophen (Acetaminophen 325 Mg Tab) 650 mg PO Q4H PRN PRN Reason: Pain(1,2,3) Or Fever Stop: 12/19/22 18:10 Last Admin: 11/20/22 07:45 Dose: 650 mg Aspirin (Aspirin 81 Mg Ectab) 81 mg PO QAM [facility] Stop: 12/20/22 08:59 Last Admin: 11/21/22 08:32 Dose: 81 mg Carvedilol (Carvedilol 25 Mg Tab) 25 mg PO BID [facility] Stop: 12/20/22 08:59 Last Admin: 11/21/22 08:33 Dose: 25 mg Doxycycline Hyclate (Doxycycline Hyclate 100 Mg Cap) 100 mg PO BID [facility] Stop: 11/26/22 20:59 Last Admin: 11/21/22 08:33 Dose: 100 mg Famotidine (Famotidine 20 Mg Tab) 20 mg PO QAM [facility] Stop: 12/19/22 17:44 Last Admin: 11/21/22 08:32 Dose: 20 mg Furosemide (Furosemide Inj 20 Mg/2 Ml Vial) 20 mg IV ONE ONE Stop: 11/21/22 11:05 Guaifenesin/Dextromethorphan (Guaifenesin/Dextrom Syrup 100mg/10mg 5ml Udc) 5 ml PO Q6H PRN PRN Reason: Cough Stop: 12/19/22 17:26 Last Admin: 11/21/22 08:34 Dose: 5 ml Ceftriaxone Sodium 2,000 mg/ (Dextrose) 70 mls @ 100 mls/hr IV Q24H BAILEE; Protocol Stop: 11/27/22 07:59 Last Infusion: 11/21/22 09:13 Dose: Infused Melatonin (Melatonin 3 Mg Tab) 3 mg PO HS PRN PRN Reason: Sleep Stop: 12/20/22 21:50 Last Admin: 11/20/22 21:58 Dose: 3 mg Menthol (Cough Drop (Sugar Free) Conor 24 Conor/1 Box) 1 conor BUCCAL PRN PRN PRN Reason: Sore Throat Stop: 12/20/22 18:07 Last Admin: 11/20/22 18:16 Dose: 1 conor Pramipexole Dihydrochloride (Pramipexole Dihydrochlo 0.5 Mg Tab) 2 mg PO HS BAILEE Stop: 12/19/22 20:59 Last Admin: 11/20/22 20:56 Dose: 2 mg PG Care Time/CCT Total # of Minutes Spent Total Time Spent with Patient: Total time spent is greater than 50% in coordination of care (as documented) at patient's floor/unit and/or counseling patient: Coding Level of Care Code 93130 SUB INP/OBS CARE 2/35MIN Diagnoses Acute heart failure with preserved ejection fraction (HFpEF) I50.31 Elevated troponin R77.8 NSTEMI (non-ST elevated myocardial infarction) I21.4 Acute respiratory failure with hypoxia J96.01 Hypertension I10 Hypertension type: unspecified Pacemaker Z95.0 (5) Hypertension Hypertension type: unspecified Qualified Code(s): I10 - Essential (primary) hypertension
[2022-11-21] MEDS ORDERED: FUROSEMIDE INJ 20 MG/2 ML VIAL IV ONE (11:04)
--- NOTE | 2022-11-21 13:20 | Hospitalist Progress Note ---
Date of Service November 21, 2022 Assessment & Plan (1) Acute respiratory failure with hypoxia: Plan: -Currently Resolved -Currently stable on RA and asymptomatic when sitting up -Etiology is likely multifactorial including acute parainfluenza virus with possible superimposed bacterial pneumonia, acute CHF exacerbation, reactive airway disease, and less likely PE -CTPE at [facility] was negative for central PE but the smaller pulmonary vessels were inadequately filled for proper evaluation On ceftriaxone and doxycycline. Continue -Incentive spirometry, flutter therapy, giving DuoNeb now, if she experiences improvement in symptoms will continue -PRN O2 to keep SpO2 at or above 95% -Blood and sputum cultures pending, continue to follow -Prn guaifenesin/dextromethorphan for cough -BL SCD's and heparin drip for DVT PPX -AM CBC, CMP (2) Pneumonia: Plan: -Right lobe infiltrate on CXR, procal elevated at 7, CRP elevated at 5.98 -Blood cultures ordered -Will continue with Ceftriaxone and Doxycycline for atypical coverage -Rest of care per acute respiratory failure (3) Acute CHF: Plan: -Patient noted to have pulmonary edema with pleural effusions on imaging -BNP elevated at 2559 at [facility] -TTE shows normal EF, no wall motion abnormalities, moderate mitral valve regurgitation Was diuresed since admission She is being diuresed with 20 mg of IV Lasix today -Monitor intake/output, daily renal function, and electrolytes with diuresis -Continue to monitor on tele (4) Parainfluenza virus infection: Plan: -Supportive care as per acute hypoxic respiratory failure COVID negative (5) Hypertension: Plan: -Blood pressure stable -Continue carvedilol twice daily Patient received 20 mg of IV Lasix -Will hold lisinopril for now to prevent hypotension with IV diuresis (6) Complete heart block: Plan: -S/P pacemaker placement -Continue to monitor on tele (7) GERD (gastroesophageal reflux disease): Plan: -Daily famotidine for stress ulcer PPX (8) Restless leg: Plan: -Continue pramipexole (9) Pre-syncope: (10) Demand ischemia: Plan: Elevated troponin was most likely related to demand ischemia from acute hypoxic respiratory failure TTE showed no wall motion abnormalities, normal EF Booster Pump Oiler on board, recommended discontinuing heparin drip Recommends considering an ischemic work-up outpatient Recommends follow-up with cardiology outpatient, Dr. Parkinson Recommends continuing aspirin Admission and Anticipated Discharge Date Admission Date: November 19, 2022 Subjective Patient feels much better today. She says that she is not wheezing as much. Her voice is better as well. She is breathing better. Review of Systems Review of Systems: All systems reviewed & are unremarkable except as noted in Subjective Physical Exam Physical Exam: General: Awake, conversant Heart: S1, S2/regular rate and rhythm, no murmur rubs or gallops Lungs: Bilateral wheezing noted but less than yesterday. Normal effort Abdomen: Soft/nontender/nondistended. No hepatosplenomegaly Extremities: No clubbing/cyanosis. No edema Behavior: Appropriate, cooperative Results & Data Results & Data Vital Signs (Past 12 Hours) Vital Signs Temp Pulse Pulse Resp BP BP Pulse Ox 11/21/22 07:14 63 11/21/22 12:09 11/21/22 11:22 36.9 C 61 18 121/65 96 11/21/22 07:48 36.7 C 67 18 135/70 95 11/21/22 03:46 36.5 C 66 18 147/76 H 96 O2 Del Method O2 Flow Rate 11/21/22 07:14 11/21/22 12:09 Nasal Cannula 2 11/21/22 11:22 Nasal Cannula 1 11/21/22 07:48 Nasal Cannula 1 11/21/22 03:46 Nasal Cannula 1.5 Laboratory Results Abnormal lab results 11/20/22 11/21/22 11/21/22 Range/Units 17:43 00:51 05:44 RBC 3.65 L (4.20-5.40) M/uL Hgb 11.4 L (12.0-16.0) g/dl Hct 33.6 L (37.0-47.0) % Plt Count 116 L (130-400) K/uL Lymph # (Auto) 1.09 L (1.2-3.4) K/uL BUN/Creatinine Ratio (10-20) Glucose (70-99(Fasting)) mg/dl Calcium (8.6-10.3) mg/dl Troponin I High Sens 222.7 H* D 257.5 H* (0-14) pg/ml C-Reactive Protein (0-0.5) mg/dl Total Protein (6.0-8.3) gm/dl Albumin (3.4-5.0) gm/dl Globulin (2.5-4.0) gm/dl 11/21/22 11/21/22 Range/Units 05:44 05:44 RBC (4.20-5.40) M/uL Hgb (12.0-16.0) g/dl Hct (37.0-47.0) % Plt Count (130-400) K/uL Lymph # (Auto) (1.2-3.4) K/uL BUN/Creatinine Ratio 29.4 H (10-20) Glucose 105 H (70-99(Fasting)) mg/dl Calcium 8.3 L (8.6-10.3) mg/dl Troponin I High Sens 140.4 H* D (0-14) pg/ml C-Reactive Protein 8.90 H (0-0.5) mg/dl Total Protein 5.5 L (6.0-8.3) gm/dl Albumin 3.3 L (3.4-5.0) gm/dl Globulin 2.2 L (2.5-4.0) gm/dl PG Care Time/CCT Total # of Minutes Spent Total Time Spent with Patient: Total time spent is greater than 50% in coordination of care (as documented) at patient's floor/unit and/or counseling patient: Coding Level of Care Code 65496 SUB INP/OBS CARE 2/35MIN Diagnoses Acute respiratory failure with hypoxia J96.01 Pneumonia J18.9 Acute CHF I50.31 Heart failure type: diastolic Parainfluenza virus infection B34.8 Hypertension I10 Hypertension type: unspecified Complete heart block I44.2 GERD (gastroesophageal reflux disease) K21.9 Restless leg G25.81 Pre-syncope R55 Demand ischemia I24.8 (3) Acute CHF Heart failure type: diastolic Qualified Code(s): I50.31 - Acute diastolic (congestive) heart failure (5) Hypertension Hypertension type: unspecified Qualified Code(s): I10 - Essential (primary) hypertension
[2022-11-21] MEDS: PRAMIPEXOLE DIHYDROCHLO 0.5 MG TAB PO SCH (20:38)
--- NOTE | 2022-11-21 21:49 | Electrocardiogram Report ---
Test Reason : Blood Pressure : / mmHG Vent. Rate : 088 BPM Atrial Rate : 088 BPM P-R Int : 206 ms QRS Dur : 174 ms QT Int : 430 ms P-R-T Axes : 021 -72 098 degrees QTc Int : 520 ms Atrial-sensed ventricular-paced rhythm with occasional AV dual-paced complexes Abnormal ECG When compared with ECG of 05-OCT-2021 09:18, Vent. rate has increased BY 25 BPM Confirmed by Nick Damon ([id number]) on 11/21/2022 9:49:34 PM Referred By: Lauro Law Confirmed By:Nick Damon
--- NOTE | 2022-11-21 21:51 | Electrocardiogram Report ---
Test Reason : Blood Pressure : / mmHG Vent. Rate : 104 BPM Atrial Rate : 104 BPM P-R Int : 188 ms QRS Dur : 172 ms QT Int : 438 ms P-R-T Axes : 000 255 083 degrees QTc Int : 575 ms Atrial-sensed ventricular-paced rhythm Abnormal ECG When compared with ECG of 05-OCT-2021 09:18, Vent. rate has increased BY 41 BPM Confirmed by Nick Damon ([id number]) on 11/21/2022 9:50:48 PM Referred By: Lauro Law Confirmed By:Nick Damon
--- NOTE | 2022-11-21 22:03 | Electrocardiogram Report ---
Test Reason : Blood Pressure : / mmHG Vent. Rate : 066 BPM Atrial Rate : 066 BPM P-R Int : 212 ms QRS Dur : 180 ms QT Int : 546 ms P-R-T Axes : 031 -78 115 degrees QTc Int : 572 ms Atrial-sensed ventricular-paced rhythm with prolonged AV conduction Abnormal ECG When compared with ECG of 19-NOV-2022 18:45, Vent. rate has decreased BY 38 BPM Confirmed by Nick Damon ([id number]) on 11/21/2022 10:02:52 PM Referred By: Lauro Law Confirmed By:Nick Damon
[2022-11-22] MEDS: guaiFENesin/DEXTROM SYRUP 100MG/10MG 5ML UDC PO PRN ×2 (04:09→20:16)
[2022-11-22 06:54] LABS: Basophils # (auto) 0.01 K/uL (0-0.2); Basophils % (auto) 0.2 %; Eosinophils # (auto) 0.11 K/uL (0-0.50); Eosinophils % (auto) 2.3 %; Immature Granulocytes # (auto) 0.01 K/uL (0.01-0.20); Immature Granulocytes % (auto) 0.2 %; Lymphocytes # (auto) 1.31 K/uL (1.2-3.4); Lymphocytes % (auto) 27.5 %; Mean Corpuscular Hemoglobin 30.8 pg (25.0-34.0); Mean Corpuscular Hgb Conc 34.3 g/dL (32.0-36.0); Mean Corpuscular Volume 89.7 fL (80.0-100.0); Mean Platelet Volume 12.1 fL (9.4-12.4); Monocytes # (auto) 0.52 K/uL (0.11-0.59); Monocytes % (auto) 10.9 %; Neutrophils % (auto) 58.9 %; Platelet Count 129 K/uL (130-400); RDW Coefficient of Variation 12.7 % (11.5-14.5); RDW Standard Deviation 41.9 fL (36.4-46.3); White Blood Count 4.76 K/ul (4.8-10.8)
[2022-11-22 07:10] LABS: Albumin Globulin Ratio 1.5 (0.9-2); Albumin Level 3.5 gm/dl (3.4-5.0); BUN Creatinine Ratio 37.9 (10-20); Bilirubin,Total 0.8 mg/dl (0.2-1.0); C Reactive Protein 5.75 mg/dl (0-0.5); Calcium 8.7 mg/dl (8.6-10.3); Creatinine Clr Calc Pharmacy 63.2 ml/min; Est GFR (African American) 98.1 ml/min; Est GFR (Non-African American) 84.6 ml/min; Globulin 2.4 gm/dl (2.5-4.0); Magnesium 1.8 mg/dl (1.7-2.4); Potassium 3.9 mmol/L (3.5-5.1); Total Protein 5.9 gm/dl (6.0-8.3)
[2022-11-22 07:23] LABS: Prothrombin Time 11.3 Seconds (9.0-12.0)
[2022-11-22] MEDS: carvediloL 25 MG TAB PO SCH ×2 (09:57→20:15)
[2022-11-22] MEDS: ASPIRIN 81 MG ECTAB PO SCH (09:59)
[2022-11-22] MEDS: DOXYCYCLINE HYCLATE 100 MG CAP PO SCH ×2 (09:59→20:15)
[2022-11-22] MEDS: FAMOTIDINE 20 MG TAB PO SCH (10:00)
[2022-11-22] MEDS: cefTRIAXone SODIUM 2,000 MG in DEXTROSE 5% 50 ML IV SCH (10:10)
--- NOTE | 2022-11-22 13:45 | Hospitalist Progress Note ---
Date of Service November 22, 2022 Assessment & Plan (1) Acute respiratory failure with hypoxia: Plan: -Currently Resolved -Currently stable on RA and asymptomatic when sitting up -Etiology is likely multifactorial including acute parainfluenza virus with possible superimposed bacterial pneumonia, acute CHF exacerbation, reactive airway disease On ceftriaxone and doxycycline. Continue for now. May discharge on p.o. Keflex and doxycycline -Blood negative so far May order rest and exercise tomorrow Likely discharge tomorrow (2) Pneumonia: Plan: -Right lobe infiltrate on CXR, procal elevated at 7, CRP elevated at 5.98 -Blood cultures pending -Will continue with Ceftriaxone and Doxycycline for atypical coverage -May discharge on p.o. Keflex and doxycycline tomorrow Rest and exercise tomorrow (3) Acute CHF: Plan: -Patient noted to have pulmonary edema with pleural effusions on imaging -BNP elevated at 2559 at [facility] -TTE shows normal EF, no wall motion abnormalities, moderate mitral valve regurgitation Was diuresed since admission We will start her on p.o. Lasix 20 mg daily -Monitor intake/output, daily renal function, and electrolytes with diuresis -Continue to monitor on tele She will need to be followed up by the CHF program (4) Parainfluenza virus infection: Plan: -Supportive care as per acute hypoxic respiratory failure COVID negative (5) Hypertension: Plan: -Blood pressure stable -Continue carvedilol twice daily We will start her on 20 mg of p.o. Lasix every morning -Will hold lisinopril for now to prevent hypotension with added p.o. Lasix (6) Complete heart block: Plan: -S/P pacemaker placement -Continue to monitor on tele (7) GERD (gastroesophageal reflux disease): Plan: -Daily famotidine for stress ulcer PPX (8) Restless leg: Plan: -Continue pramipexole (9) Pre-syncope: (10) Demand ischemia: Plan: Elevated troponin (OR type II) was most likely related to demand ischemia from acute hypoxic respiratory failure TTE showed no wall motion abnormalities, normal EF Medication Reconciliation Technician on board Recommends considering an ischemic work-up outpatient Recommends follow-up with cardiology outpatient, Dr. Parkinson Recommends continuing aspirin Plan PT/OT ordered Likely discharge tomorrow Will need rest and exercise prior to discharge. Will need to be ordered Likely discharge on p.o. Keflex and p.o. doxycycline to complete the course of antibiotics for pneumonia treatment Will need to follow-up with CHF program Admission and Anticipated Discharge Date Admission Date: November 19, 2022 Subjective Patient continues to feel better overall. Breathing much better. Review of Systems Review of Systems: All systems reviewed & are unremarkable except as noted in Subjective Physical Exam Physical Exam: General: Awake, conversant Heart: S1, S2/regular rate and rhythm, no murmur rubs or gallops Lungs: Bilateral wheezing much improved. Normal effort Abdomen: Soft/nontender/nondistended. No hepatosplenomegaly Extremities: No clubbing/cyanosis. No edema Behavior: Appropriate, cooperative Results & Data Results & Data Vital Signs (Past 12 Hours) Vital Signs Temp Pulse Resp BP Pulse Ox O2 Del Method 11/22/22 12:00 36.6 C 88 18 130/66 96 Room Air 11/22/22 10:41 Room Air 11/22/22 08:00 36.7 C 74 20 142/74 H 97 Room Air 11/22/22 02:55 36.9 C 63 18 138/60 90 Room Air PG Care Time/CCT Total # of Minutes Spent Total Time Spent with Patient: Total time spent is greater than 50% in coordination of care (as documented) at patient's floor/unit and/or counseling patient: Coding Level of Care Code 05478 SUB INP/OBS CARE 2/35MIN Diagnoses Acute respiratory failure with hypoxia J96.01 Pneumonia J18.9 Acute CHF I50.31 Heart failure type: diastolic Parainfluenza virus infection B34.8 Hypertension I10 Hypertension type: unspecified Complete heart block I44.2 GERD (gastroesophageal reflux disease) K21.9 Restless leg G25.81 Pre-syncope R55 Demand ischemia I24.8 (3) Acute CHF Heart failure type: diastolic Qualified Code(s): I50.31 - Acute diastolic (congestive) heart failure (5) Hypertension Hypertension type: unspecified Qualified Code(s): I10 - Essential (primary) hypertension
[2022-11-22] MEDS: PRAMIPEXOLE DIHYDROCHLO 0.5 MG TAB PO SCH (20:15)
[2022-11-22] MEDS: MELATONIN 3 MG TAB PO PRN (22:55)
[2022-11-23] MEDS: cefTRIAXone SODIUM 2,000 MG in DEXTROSE 5% 50 ML IV SCH (08:08)
[2022-11-23] MEDS: DOXYCYCLINE HYCLATE 100 MG CAP PO SCH (08:10)
[2022-11-23] MEDS: FAMOTIDINE 20 MG TAB PO SCH (08:10)
[2022-11-23] MEDS: carvediloL 25 MG TAB PO SCH (08:10)
[2022-11-23] MEDS: ASPIRIN 81 MG ECTAB PO SCH (08:10)
[2022-11-23] MEDS ORDERED: FUROSEMIDE 20 MG TAB PO SCH (09:00)
--- NOTE | 2022-11-23 09:36 | Discharge Summary ---
Discharge Summary Date of Service November 23, 2022 Admission HPI Per Admitting Provider Lizeth is a 77 year old female with a PMH significant for complete heart block S/P pacemaker placement, previous DVT S/P knee replacement (completed 6 months of Eliquis), HTN, and hay fever who was transferred to [facility] from [facility] due to acute hypoxic respiratory failure and elevated troponin levels. Per transfer documents, the patient presented to [facility] this am via ALS due to acute respiratory failure. In route the patient was given one dose of SL nitroglycerine and was placed on CPAP due to her work of breathing. She was noted to be tachycardic with HR in the 110's but otherwise stable on CPAP. Labs were significant for a cbc WNL, cr of 1.0, AG of 17 with bicarb of 15, initial lactate of 3.5 --> 3.3 on 2 hour repeat, ABG with a pH of 7.20, PCO2 of 48, PO2 of 153, initial high sen trop of 59 -->187 on 2 hour repeat, procal of 0.06, CRP of 36, BNP of 2,559, D-dimer of 4.83, and full reparatory biofire positive for parainfluenza virus. CTPE was reported as having suboptimal arterial bolus. It was negative for "gross central pulmonary emboli", showed diffuse scattered ground glass infiltrates "suggesting atypical pneumonia vs pulmonary edema", "C ardiomegaly and trace right pleural effusion". ECG showed an atrial sensed ventricular paced rhythm without acute ST segment or T-wave changes. The patient was intially placed on Bipap on arrival and given 2L isolyte for sepsis bolus. She was also given a DuoNeb treatment, a dose of ceftriaxone, dose of Vancomycin, and started on a heparin drip for possible NSTEMI. Per review of all documentation and discussions with the patient, she was NOT given aspirin by EMS or [facility] prior to arrival. The patient was able to be weaned to 2L NC prior to transfer. At the time of the exam the patient was sitting in bed in no acute distress, current stable on RA. 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 When asked, she has noticed that she has been SOB with this activity and has felt more fatigued. 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 Since then the patient has had a progressive, non-productive cough, wheezing, and SOB. She states that she was up all night last night coughing. This am she woke up and tried to go to a friend's antique show, she did not take her am medications. When she arrived she was significantly SOB, frequently coughing, and felt lightheaded. She denies any chest pain over this time, she did experience minimal chest tightness during this time. At the time of my exam she states that she feels improved compared to arrival to the ED this am but still a little SOB. She denies recent fever, abd pain, nausea, vomitng, diarrhea, dysuria, hematuria, melena, and recent trauma. She is a full code and would want her to make medical decisions for her if she cannot make them herself. Please refer to Dr. Law's attestation for any changes to the treatment plan. Admission Exam Per Admitting Provider General: In no acute distress, stated age, well-nourished, good hygiene, non- toxic appearing HEENT: Normocephalic, atraumatic, no scleral icterus, pupils around round, symmetrical, and reactive to light, moist mucus membranes, trachea midline, no thyromegaly Chest/Pulm: mild respiratory distress, exacerbated when lying flat, symmetrical chest expansion, decreased breath sounds in the BL lower lung hunter with expiratory wheezing noted in all other lung hunter Cardiac: RRR, no murmurs noted Abdomen: Negative for ascites and bruising, normoactive bowel sounds, soft, non- tender to palpation throughout Musculoskeletal: Symmetrical and without signs of acute trauma, upper and lower extremities with full ROM, no atrophy, spasticity, or flaccidity Extremities: Radial, dorsalis pedis, and posterior tibial pulses are intact and symmetrical, no edema noted in the BL LE's Skin: Warm, dry, no rashes , lesions, or scars noted Neuro: Alert and oriented to person, place, month, year, and president, no focal defects, CN II-XII tested and intact, no tremors noted Psych: No acute distress, calm and cooperative during the exam Principal Dx & Hospital Course #1 = Principal Diagnosis (1) Acute respiratory failure with hypoxia: -Currently Resolved , stable on RA and asymptomatic when sitting up, to step without need for oxygen -Etiology is likely multifactorial including acute parainfluenza virus with possible superimposed bacterial pneumonia, acute CHF exacerbation, reactive airway disease -On ceftriaxone and doxycycline -> transition to Augmentin/Doxy on discharge to complete course for pneumonia -Blood cultures negative to date (2) Pneumonia: -Right lobe infiltrate on CXR, procal elevated at 7, CRP elevated at 5.98 -Blood cultures negative to date -Augmentin/Doxy as described above (3) Acute CHF: -Patient noted to have pulmonary edema with pleural effusions on imaging -BNP elevated at 2559 at [facility] -TTE shows normal EF, no wall motion abnormalities, moderate mitral valve regurgitation -Diuresed well this admission, transitioned to Lasix p.o. 20 mg daily to continue on discharge with close follow-up with CHF program (4) Parainfluenza virus infection: -Supportive care, only lingering symptom is cough at this point (5) Hypertension: -Continue carvedilol twice daily as well as added Lasix as described above (6) Complete heart block: -S/P pacemaker placement -Continue to monitor on tele (7) GERD (gastroesophageal reflux disease): -Daily famotidine for stress ulcer PPX while admitted (8) Restless leg: -Continue pramipexole (9) Demand ischemia: Elevated troponin (MN type II) was most likely related to demand ischemia from acute hypoxic respiratory failure TTE showed no wall motion abnormalities, normal EF Call Center Receptionist on board, CHF program referral and daily diuretics Recommends considering an ischemic work-up outpatient Recommends follow-up with cardiology outpatient, Dr. Parkinson Recommends continuing aspirin Plan Discharge home today without elevated care needs, follow-up with PCP/cardiology/CHF program Discharge Exam Constitutional WD/WN, vitals as above Respiratory normal respiratory effort, lungs clear to auscultation Intermittent dry cough Cardiovascular Heart rate irregularly irregular, no murmurs Psychiatric A+Ox3, euthymic affect Updated Medication List Medication Instructions Recorded Confirmed Type carvedilol 25 mg tablet 25 mg PO BID 12/10/18 11/19/22 History cholecalciferol (vitamin D3) 125 5,000 unit PO QAM 12/10/18 11/19/22 History mcg (5,000 unit) tablet (Vitamin D3) cyanocobalamin (vitamin B-12) 5,000 mcg sublingual QAM 12/10/18 11/19/22 History 5,000 mcg sublingual tablet lisinopril 20 mg tablet 10 mg PO BID 10/05/21 11/19/22 History acetaminophen 500 mg tablet 1,000 mg PO Q8 PRN Pain 10/10/21 11/19/22 History (Tylenol Extra Strength) pramipexole 1 mg tablet 2 mg PO HS 11/19/22 11/19/22 History amoxicillin 875 mg-potassium 1 tab PO BID 4 days #8 tabs 11/23/22 Rx clavulanate 125 mg tablet aspirin 81 mg tablet,delayed 81 mg PO QAM 30 days #30 tabs 11/23/22 Rx release doxycycline hyclate 100 mg capsule 100 mg PO BID 4 days #8 caps 11/23/22 Rx furosemide 20 mg tablet 20 mg PO QAM 30 days #30 tabs 11/23/22 Rx Hospital Stay Data Consultations 11/19/22 18:30 Consult Cardiology Routine 11/20/22 16:23 [facility] [place] [place] CHF Program Referral Routine Pending Results Patient Have Any Pending Studies at Discharge: No Discharge Instructions Given to Patient (Per Discharging Provider) You were admitted to the hospital for difficulty breathing, and found to have pneumonia (suspected both viral infections and bacterial infections). You were also noted to be in fluid overload, what is called a heart failure exacerbation. This is usually due to salt intake. Most people are extremely good at avoiding the salt shaker; you should continue to avoid it. Be on the lookout for sources of hidden sodium; you should avoid eating the following foods, and at least keep an eye on the sodium intake (per serving) for these foods if you do eat them: canned vegetables and soups, TV dinners and freezer aisle foods (excluding fresh frozen veggies), cured meats like ventura/ham/hot dogs, processed snacks like potato chips. The recommended max intake of sodium for someone with a history of heart failure is 2000 milligrams a day. This equals one teaspoon of salt. Read the labels on all of your food, and try to keep meals under 600 milligrams of sodium. You were also started on a baby aspirin for your heart. Lastly, you were started on a water pill called furosemide. You should follow up with the heart failure clinic at your scheduled appointment listed above. Please take your weight daily, and take your recordings with you to that appointment. For your pneumonia, prescriptions were sent for antibiotics to your pharmacy. Both the Augmentin and doxycycline can be started this evening, one pill twice daily, until both prescriptions are gone. Total Time Total Time Spent Total Time Spent (In Minutes): 40 minutes Coding Level of Care Code 67082 INP/OBS DISCH >30 MIN Diagnoses Acute respiratory failure with hypoxia J96.01 Pneumonia J18.9 Acute CHF I50.31 Heart failure type: diastolic Parainfluenza virus infection B34.8 Hypertension I10 Hypertension type: unspecified Complete heart block I44.2 GERD (gastroesophageal reflux disease) K21.9 Restless leg G25.81 Demand ischemia I24.8
== END 2022-11-23 14:34 | disposition home or self-care (01) | DRG 280 ==
LOC: 2S 16:58 → SUATTDRO 17:14 → 2S 17:17